=== PATIENT | female | born 1960 | race Caucasian/White ===

== ENCOUNTER 2019-08-22 00:24 | Day surgery (SDC) | payer OTHER, SELFPAY ==
[2019-08-17 15:13] VITALS: BMI 25.8
[2019-08-22 10:31] VITALS: BP 136/88; PULSE 78; RESP 20; TEMP 37.2; O2SAT 99; BMI 25.2
--- NOTE | 2019-08-22 10:41 | WPDANESEPPF ---
Anes - Initial Pre Proc Eval Procedure: Operation Date: 08/22/19 14:00 Proposed Procedures p Esophagogastroduodenoscopy & Screening Colonoscopy - Fernando Willams MD Date/Time: 08/22/19 10:41 Surgeon: Fernando Willams MD Pre Op Diagnosis: neoplasm screening, dyspepsia Patient Data Age: 58 Gender: F Height: 5 ft 8 in Weight: 75.2 kg Last Vital Signs Temp 37.2 C 08/22/19 10:31 Pulse 78 08/22/19 10:31 Resp 20 08/22/19 10:31 BP 136/88 08/22/19 10:31 Pulse Ox 99 08/22/19 10:31 Allergies Allergy/AdvReac Type Severity Reaction Status Date / Time melons AdvReac Severe THROAT Uncoded 08/22/19 10:29 SWELLING Home Medications Medication Instructions Recorded Confirmed Type armodafinil 250 mg tablet 250 mg PO QAM 05/29/19 08/17/19 History gabapentin 800 mg tablet 800 mg PO QID 05/29/19 08/17/19 History linaclotide 290 mcg capsule 290 mcg PO QAM 05/29/19 History oxycodone-acetaminophen 10 mg-325 1 tablet PO Q6H 05/29/19 08/17/19 History mg tablet levothyroxine 125 mcg tablet 125 mcg PO DAILY #90 tablet 06/28/19 08/17/19 Rx peg 3350-electrolytes 236 240 ml PO Q10M #4000 ml 08/01/19 Rx gram-22.74 gram-6.74 gram-5.86 gram solution sumatriptan succinate 100 mg PO ONCE 08/17/19 08/17/19 History topiramate 100 mg PO BID 08/17/19 08/17/19 History Patient hx anesthesia problems: none Family hx anesthesia problems: none PMFSH Past Medical History Medical History Abnormality of gait Adult hypothyroidism Balance disorder Hypersomnia MDD (major depressive disorder), recurrent episode Narcolepsy Spondylosis, cervical, with myelopathy Surgical History Surgical History H/O excision of lamina of cervical vertebra for decompression of spinal cord Family History Family History Father Hypertension Grandparent Family history of malignant melanoma Mother Family history of malignant melanoma, Onset Age: 65 Hypertension Other Cerebrovascular accident Family history of allergic disorder Family history of cardiovascular disease Family history of malignant neoplasm Social History Social History Social History: Smoking status: Never smoker Second hand tobacco smoke exposure: No Alcohol intake: never Substance use: never Substance use type: does not use Gender identity (if verbalized by the patient): Female Anes - Eval Final PreProcedure Day of Procedure 08/22/19 10:41 Patient weight: overweight Heart: regular rate and rhythm Lungs: clear to auscultation Airway: Mallampati scale Neurological: alert and oriented Last oral intake: >/= 8 hours ASA classification: III Emergent: no Anesthetic plan: proceed Anesthesia type and monitoring: general GIVS and standard monitoring Informed Consent: The patient's anesthetic plan and its attendant risks and benefits were discussed with the patient/family/POA. Questions were solicited and answers provided to the satisfaction of the patient/family/POA.
[2019-08-22] MEDS: LACTATED RINGERS 1,000 ML 150 ML IV CONT (10:46)
--- NOTE | 2019-08-22 11:04 | PM.HPGS ---
History of Present Illness History of Present Illness Consent: Risks, benefits, and alternatives have been discussed and questions answered. Patient agrees to proceed with procedure. Chief complaint: neoplasm screening, dyspepsia Narrative: Ivory Arias is a 58 year old female here for weight loss, also screening colon cancer Review of Systems Constitutional: Constitutional: Denies headache(s) and Denies weakness Eyes: Eyes: Denies blurry vision ENT: Reports Normal hearing present, Denies headache(s) and Denies neck pain Cardiovascular: Cardiovascular: Denies chest pain and Denies dyspnea Respiratory: Respiratory: Denies dyspnea Gastrointestinal: Gastrointestinal: Reports no additional gastrointestinal complaints Genitourinary: Genitourinary: Denies dysuria Musculoskeletal: Musculoskeletal: Denies neck pain Integumentary/Breasts: Skin/Breast: Denies dry skin Neurologic: Reports Normal hearing present, Denies headache(s) and Denies weakness Psychiatric: Psychiatric: Denies anxiety Endocrine: Endocrine: Denies change in body appearance Hematologic/Lymphatic: Hematologic/Lymphatic: Denies easy bleeding Allergic/Immunologic: Allergic/Immunologic: Denies urticaria PMFSH Past Medical History Medical History Abnormality of gait Adult hypothyroidism Balance disorder Hypersomnia MDD (major depressive disorder), recurrent episode Narcolepsy Spondylosis, cervical, with myelopathy Surgical History Surgical History H/O excision of lamina of cervical vertebra for decompression of spinal cord Family History Family History Father Hypertension Grandparent Family history of malignant melanoma Mother Family history of malignant melanoma, Onset Age: 65 Hypertension Other Cerebrovascular accident Family history of allergic disorder Family history of cardiovascular disease Family history of malignant neoplasm Social History Social History Social History: Smoking status: Never smoker Second hand tobacco smoke exposure: No Alcohol intake: never Substance use: never Substance use type: does not use Gender identity (if verbalized by the patient): Female Meds Home Medications and Allergies Home Medications Medication Instructions Recorded Confirmed Type armodafinil 250 mg tablet 250 mg PO QAM 05/29/19 08/17/19 History gabapentin 800 mg tablet 800 mg PO QID 05/29/19 08/17/19 History linaclotide 290 mcg capsule 290 mcg PO QAM 05/29/19 History oxycodone-acetaminophen 10 mg-325 1 tablet PO Q6H 05/29/19 08/17/19 History mg tablet levothyroxine 125 mcg tablet 125 mcg PO DAILY #90 tablet 06/28/19 08/17/19 Rx peg 3350-electrolytes 236 240 ml PO Q10M #4000 ml 08/01/19 Rx gram-22.74 gram-6.74 gram-5.86 gram solution sumatriptan succinate 100 mg PO ONCE 08/17/19 08/17/19 History topiramate 100 mg PO BID 08/17/19 08/17/19 History Allergies Allergy/AdvReac Type Severity Reaction Status Date / Time melons AdvReac Severe THROAT Uncoded 08/22/19 10:29 SWELLING Vital Signs Vital Signs - 24 hr 08/22/19 10:31 Temperature 98.9 F Pulse Rate 78 Respiratory Rate 20 Blood Pressure 136/88 Pulse Oximetry 99 Exam Const: General: comfortable and no acute distress HENMT: General nose exam: Normal nares present Eyes: General: appearance normal, both eyes and all related structures Neck: Neck: no JVD Resp: Auscultation: clear to auscultation bilaterally Cardio: Rate: regular rate Rhythm: regular rhythm GI: Inspection: non-distended GI Palp: Yes Soft to palpation Skin: General skin exam: normal color Neuro: General: gait normal Speech: normal speech Extrem: General: normal to inspection Psych: Mental Status: mental status juarez
[2019-08-22 11:36] VITALS: BP 122/83; PULSE 72; RESP 20; O2SAT 100
[2019-08-22 11:46] VITALS: BP 133/87; PULSE 70; RESP 20; O2SAT 100
[2019-08-22 11:56] VITALS: BP 144/90; PULSE 70; RESP 20; O2SAT 100
== END 2019-08-22 12:20 | disposition home or self-care (01) ==
PROVIDERS: PCP Family Medicine; Visit Provider Internal Medicine Gastroenterology
PROC: 0DJ08ZZ Inspection of Upper Intestinal Tract, Via Natural or Artificial Opening Endoscopic (ICD-10-PCS; CPT 43235; principal; 2019-08-22 14:00)
DX: Z12.11 Encounter for screening for malignant neoplasm of colon (principal); D12.3 Benign neoplasm of transverse colon; K57.30 Diverticulosis of large intestine without perforation or abscess without bleeding; K25.9 Gastric ulcer, unspecified as acute or chronic, without hemorrhage or perforation; K29.50 Unspecified chronic gastritis without bleeding; E03.9 Hypothyroidism, unspecified; F33.9 Major depressive disorder, recurrent, unspecified; M47.12 Other spondylosis with myelopathy, cervical region; G47.419 Narcolepsy without cataplexy
CPT/HCPCS: 45380; 43239; 87081; 88305; J2704; J7120

== ENCOUNTER 2019-11-05 14:05 | Outpatient (RCR) | payer OTHER, SELFPAY ==
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
== END 2020-01-11 13:20 | disposition home or self-care (01) ==
LOC: CHSPT 14:05
PROVIDERS: PCP Family Medicine
DX: Z96.651 Presence of right artificial knee joint (principal)
CPT/HCPCS: 97110; 97112; 97116; 97161; 97164; 97530

== ENCOUNTER 2020-05-05 12:56 | Outpatient (CLI) | payer OTHER, SELFPAY ==
--- NOTE | ~2020-05-05 | XR_ITS ---
EXAMINATION: XR chest 2V DATE: 05/05/2020 13:13 INDICATION: Cough. TECHNIQUE: Frontal and lateral views of the chest were obtained. COMPARISON: Chest single view 12/20/2016, chest CT 08/25/2016 FINDINGS: There is mild atelectasis at left lung base. There is a staple line at left lung apex. No p leural effusion or pneumothorax. The heart size is normal. There is an old healed fracture of left si xth rib. IMPRESSION: 1. Mild atelectasis at left lung base. Reviewed, dictated and finalized at location B. 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
== END 2020-05-05 12:57 | disposition home or self-care (01) ==
LOC: ANHIMG 13:01
PROVIDERS: PCP Family Medicine; Visit Provider Family Medicine
DX: R05 Cough (principal); J98.11 Atelectasis
CPT/HCPCS: 71046

== ENCOUNTER 2020-05-21 06:42 | Outpatient (NON) | payer OTHER, SELFPAY ==
[2020-05-23 21:25] LABS: SARS-CoV-2 RNA PCR Negative
== END 2020-05-21 06:43 ==
LOC: ANHCOVIDDT 07:03
PROVIDERS: PCP Family Medicine; Visit Provider Family Medicine
DX: R68.89 Other general symptoms and signs (principal); Z20.828 Contact with and (suspected) exposure to other viral communicable diseases
CPT/HCPCS: 87635; C9803; U0003

== ENCOUNTER 2020-06-21 10:55 | Outpatient (CLI) | payer OTHER, SELFPAY ==
--- NOTE | ~2020-06-21 | US_ITS ---
EXAMINATION:US venous doppler LE LT INDICATION:Complete DVT of the left lower extremity 6 months ago and at 3 month recheck per patient. TECHNIQUE: Multiple grayscale, color flow and Doppler images of the left lower extremity deep venous systems were obtained and reviewed. COMPARISON:No prior studies for comparison. FINDINGS: The common femoral, superficial femoral and popliteal veins demonstrate normal respiratory variation, augmentation and compressibility. There is deep venous thrombosis of the left femoral vein , likely chronic. Vein Color flow is also seen within the posterior tibial, peroneal, greater sapheno us and profunda veins. IMPRESSION: 1: Deep venous thrombosis of the left femoral vein, likely chronic given patient history. Reviewed, dictated and finalized at location A. 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
== END 2020-06-21 10:56 | disposition home or self-care (01) ==
PROVIDERS: PCP Family Medicine; Visit Provider Family Medicine
DX: I82.412 Acute embolism and thrombosis of left femoral vein (principal)
CPT/HCPCS: 93971

== ENCOUNTER 2020-09-18 10:51 | Outpatient (CLI) | payer OTHER, SELFPAY ==
--- NOTE | ~2020-09-18 | US_ITS ---
EXAMINATION:US venous doppler LE LT INDICATION:Chronic DVT of the left leg. Left thigh pain. TECHNIQUE: Multiple grayscale, color flow and Doppler images of the left lower extremity deep venous systems were obtained and reviewed. COMPARISON: Ultrasound dated 06/21/2020 FINDINGS: There is chronic deep venous thrombosis of the left femoral vein with reversal flow. There is normal flow, compressibility and augmentation in the left common femoral, popliteal, posterior tib ial, peroneal, gastrocnemius and saphenous veins. IMPRESSION: 1: Chronic deep venous thrombosis of the left femoral vein. Reviewed, dictated and finalized at location A.
[2020-09-18 12:06] LABS: Basophils Percent Auto 0.8 % (0.2-1.2); Eosinophils Absolute Auto 0.1 K/mm3 (0-0.3); Eosinophils Percent Auto 1.6 % (0-4.4); Hematocrit 40.7 % (37.0-47.0); Hemoglobin 12.6 g/dL (12.0-15.0); Immature Granulocyte Absolute 0.01 K/mm3 (0.00-0.031); Immature Granulocyte Percent A 0.2 % (0-0.5); Lymphocytes Absolute Auto 1.56 K/mm3 (0.9-3.2); Mean Corpuscular Hemoglobin 28.5 pg (26-34); Mean Corpuscular Volume 92.1 fl (80-100); Mean Platelet Volume 10.3 fl (7.4-10.4); Monocytes Absolute Auto 0.3 K/mm3 (0.1-0.6); Monocytes Percent Auto 6.8 % (2.6-8.5); Neutrophils Absolute Auto 2.9 K/mm3 (1.3-6.7); Neutrophils Percent Auto 58.6 % (45.5-73.1); Platelet Count Result 260 k/mm3 (150-375); Red Blood Count 4.42 M/mm3 (4.2-5.4); Red Cell Distribution Width 13.3 % (11.5-14.5); White Blood Count 4.9 K/mm3 (4.5-10.0)
[2020-09-18 12:18] LABS: Alanine Aminotransferase 18 U/L (4-35); Albumin Level 3.8 g/dL (3.5-5.1); Alkaline Phosphatase 52 U/L (38-126); Anion Gap 6 mmol/L (8-16); Aspartate Amino Transferase 22 U/L (14-36); Bilirubin,Total 0.3 mg/dL (0.2-1.3); Blood Urea Nitrogen 22 mg/dL (7-17); Calcium 8.9 mg/dL (8.4-10.2); Carbon Dioxide 30 mmol/L (22-30); Chloride 105 mmol/L (98-107); Cholesterol 230 mg/dL (0-200); Estimated Glomerular Filt Rate > 60; Glucose 90 mg/dL (65-105); HDL Direct 57 mg/dL; Potassium 3.9 mmol/L (3.4-5.0); Sodium 141 mmol/L (137-145); Triglycerides 108 mg/dL (<150)
[2020-09-18 12:29] LABS: LDL Cholesterol Direct 130 mg/dL
[2020-09-18 12:34] LABS: Erythrocyte Sedimentation Rate 14 mm/hr (0-20)
[2020-09-18 12:46] LABS: Total Triiodothyronine (T3) 0.85 NG/ML (0.97-1.69)
[2020-09-18 13:03] LABS: Free T4 Free Thyroxine 0.95 ng/mL (0.78-2.19)
[2020-09-23 00:53] LABS: Vitamin D 1,25 (OH)2 Total 40 pg/mL (18-72); Vitamin D2 1,25 (OH)2 <8 pg/mL; Vitamin D3 1,25 (OH)2 40 pg/mL
== END 2020-09-18 10:52 | disposition home or self-care (01) ==
PROVIDERS: PCP Family Medicine; Visit Provider Physician Assistant
DX: Z13.220 Encounter for screening for lipoid disorders (principal); I82.512 Chronic embolism and thrombosis of left femoral vein; M79.89 Other specified soft tissue disorders; E03.9 Hypothyroidism, unspecified; F33.9 Major depressive disorder, recurrent, unspecified; R26.89 Other abnormalities of gait and mobility; E55.9 Vitamin D deficiency, unspecified; L40.9 Psoriasis, unspecified; I10 Essential (primary) hypertension
CPT/HCPCS: 36415; 80053; 80061; 82652; 84439; 84443; 84480; 85025; 85652; 93971

== ENCOUNTER 2021-04-09 16:09 | Outpatient (CLI) | payer OTHER, SELFPAY ==
--- NOTE | ~2021-04-09 | XR_ITS ---
EXAMINATION: XR abdomen/kub 1V DATE: 04/09/2021 16:29 INDICATION: Constipation, unspecified. TECHNIQUE: A supine view of the abdomen on 2 radiographs was obtained. COMPARISON: Abdomen radiographs 04/10/2016 FINDINGS: There are no dilated loops of bowel. There is a large volume of stool in the colon. There a re phleboliths in the pelvis. IMPRESSION: 1. Nonobstructive bowel gas pattern. Reviewed, dictated and finalized at location A.
== END 2021-04-09 16:10 | disposition home or self-care (01) ==
LOC: ANHIMG 16:14
PROVIDERS: PCP Family Medicine; Visit Provider Physician Assistant
DX: K59.00 Constipation, unspecified (principal)
CPT/HCPCS: 74018

== ENCOUNTER 2021-05-11 10:40 | Emergency (ER) | payer OTHER, SELFPAY ==
[2021-05-11] VITALS (24 sets, daily range): BP systolic 134–169; BP diastolic 99–117; PULSE 92–110; RESP 13–21; TEMP 36.6; O2SAT 96–100
--- NOTE | ~2021-05-11 | XR_ITS ---
EXAMINATION: XR chest 2V DATE: 05/11/2021 11:05 INDICATION: Shortness of breath. Weakness. TECHNIQUE: Frontal and lateral views of the chest were obtained. COMPARISON: Chest 2 views 05/05/2020, chest CT 08/25/2016 FINDINGS: There is a staple line in left lung apex. There is mild atelectasis versus scarring at left lung base. No pleural effusion or pneumothorax. The heart size is normal. There is an old healed fra cture of left sixth rib. There are surgical changes in cervical spine. IMPRESSION: 1. Stable mild atelectasis versus scarring at left lung base. Reviewed, dictated and finalized at location A. 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
--- NOTE | 2021-05-11 10:49 | ECG_ITS ---
Measurements Intervals [place] Rate: 94 P: 46 RI: 153 QRS: -36 QRSD: 83 T: 14 QT: 365 QTc: 459 Interpretive Statements SINUS RHYTHM LEFT AXIS DEVIATION VOLTAGE CRITERIA FOR LVH BORDERLINE ECG Electronically Signed On 05-11-2021 14:44:36 RODDING ANODE WORKER by Kobi Cope D.O.
[2021-05-11 11:59] LABS: Basophils Percent Auto 0.3 % (0.2-1.2); Eosinophils Absolute Auto 0.1 K/mm3 (0-0.3); Eosinophils Percent Auto 0.8 % (0-4.4); Hematocrit 40.5 % (37.0-47.0); Hemoglobin 12.9 g/dL (12.0-15.0); Immature Granulocyte Absolute 0.02 K/mm3 (0.00-0.031); Immature Granulocyte Percent A 0.3 % (0-0.5); Lymphocytes Absolute Auto 0.92 K/mm3 (0.9-3.2); Mean Corpuscular HGB Conc 31.9 g/dl (32-36); Mean Corpuscular Hemoglobin 27.3 pg (26-34); Mean Corpuscular Volume 85.6 fl (80-100); Mean Platelet Volume 10.3 fl (7.4-10.4); Monocytes Absolute Auto 0.4 K/mm3 (0.1-0.6); Monocytes Percent Auto 6.1 % (2.6-8.5); Neutrophils Absolute Auto 5.2 K/mm3 (1.3-6.7); Neutrophils Percent Auto 78.5 % (45.5-73.1); Platelet Count Result 298 k/mm3 (150-375); Red Blood Count 4.73 M/mm3 (4.2-5.4); Red Cell Distribution Width 14.4 % (11.5-14.5); White Blood Count 6.6 K/mm3 (4.5-10.0)
[2021-05-11 12:17] LABS: Anion Gap 12 mmol/L (8-16); Blood Urea Nitrogen 18 mg/dL (7-17); Calcium 9.3 mg/dL (8.4-10.2); Carbon Dioxide 22 mmol/L (22-30); Chloride 104 mmol/L (98-107); Estimated CRCL calculation 87 ml/min; Estimated Glomerular Filt Rate > 60; Glucose 82 mg/dL (65-110); Potassium 3.6 mmol/L (3.4-5.0); Sodium 138 mmol/L (137-145)
[2021-05-11 13:40] LABS: NT Pro B Type Natriuretic Pept 176 pg/mL (5-100)
[2021-05-11 13:43] LABS: Troponin I 0.016 ng/mL (0.000-0.034)
[2021-05-11 14:10] LABS: D Dimer 0.37 ug/mL (<0.48)
--- NOTE | 2021-05-11 14:32 | ED.SOB ---
HPI - SOB/Dyspnea General Chief Complaint: Shortness of Breath/Dyspnea Stated Complaint: SOB Time Seen by Provider: 05/11/21 12:25 Source: patient Mode of arrival: ambulatory Limitations: no limitations History of Present Illness HPI Narrative: 60-year-old female Here because of a number of of vague general complaints following Covid vaccination 2 weeks ago She complains of aches, dry cough, poor appetite, fluctuating general weakness, exertional dyspnea It seems that what precipitated her visit to the ED though was that her was brought in for similar but more severe symptoms She does not have a fever, no vomiting, no diarrhea, no hematuria or dysuria Related Data Home Medications Medication Instructions Recorded Confirmed gabapentin 800 mg tablet 800 mg PO QID 05/29/19 04/06/21 oxycodone-acetaminophen 10 mg-325 1 tablet PO Q6H 05/29/19 04/06/21 mg tablet erenumab-aooe 70 mg/mL 70 mg SUBCUT MONTHLY 09/18/20 04/06/21 subcutaneous auto-injector ferrous sulfate 325 mg (65 mg 325 mg PO DAILY 04/06/21 04/06/21 iron) tablet multivitamin 1 tablet PO DAILY 04/06/21 04/06/21 Allergies Allergy/AdvReac Type Severity Reaction Status Date / Time melons AdvReac Severe THROAT Uncoded 04/06/21 14:42 SWELLING Review of Systems Review of Systems: All systems reviewed & are unremarkable except as noted in HPI and below Constitutional: Constitutional: Reports no additional constitutional complaints, Denies chills, Reports fatigue, Denies fever(s), Denies headache(s) and Reports weakness Eyes: Eyes: Reports no additional eye complaints and Denies change in vision ENT: Denies headache(s) and Denies sore throat Cardiovascular: Cardiovascular: Denies chest pain and Denies dyspnea Respiratory: Respiratory: Reports cough and Reports dyspnea Gastrointestinal: Gastrointestinal: Denies abdominal pain, Denies diarrhea, Reports nausea and Denies vomiting Genitourinary: Genitourinary: Denies urinary frequency, Denies nocturia and Denies dysuria Musculoskeletal: Musculoskeletal: Denies deformity, Denies arthralgias, Denies joint swelling and Denies numbness Integumentary/Breasts: Skin/Breast: Denies rash and Denies wounds Neurologic: Reports dizziness, Reports headache(s), Denies focal weakness, Denies numbness and Reports weakness Psychiatric: Psychiatric: Reports no additional psychiatric complaints Endocrine: Endocrine: Reports no additional endocrine complaints Hematologic/Lymphatic: Hematologic/Lymphatic: Reports no additional hematologic/lymphatic complaints Allergic/Immunologic: Allergic/Immunologic: Reports no additional allergic/immunologic complaints [facility] Past Medical History Medical History (Updated 05/11/21 @ 14:43 by Spike De La Cruz MD) Abnormality of gait Adult hypothyroidism Balance disorder Dyspepsia due to dysmotility HTN (hypertension) Hypersomnia MDD (major depressive disorder), recurrent episode Muscle weakness (generalized) Narcolepsy Normal echocardiogram Spondylosis, cervical, with myelopathy Weight loss Surgical History Surgical History H/O arthroscopy of shoulder R shoulder 06/2019 H/O endoscopy 08/22/19 H/O excision of lamina of cervical vertebra for decompression of spinal cord History of total knee arthroplasty R august 2019 Family History Family History Father Hypertension Grandparent Family history of malignant melanoma Mother Family history of malignant melanoma, Onset Age: 65 Hypertension Other Cerebrovascular accident Family history of allergic disorder Family history of cardiovascular disease Family history of malignant neoplasm Social History Social History Social History: Smoking status: Never smoker Second hand tobacco smoke exposure: No Alcohol intake: never Substan
--- NOTE | 2021-05-11 15:40 | PC.NURSE ---
Pt states I feel the doctor blew me off about my condition and I informed him about my blood pressure,not eating for two weeks and SOB I informed pt that I was sorry that she feels that way and I want to make sure she feels good to go home, informed rfid strategist Soumya, Soumya spoke with patient and gave her more education on how to keep her from dry heaving. This RN informed Dr. De La Cruz regarding pt concerns, he agreed she is okay to be discharged but has not spoken back with the patient at this time.
== END 2021-05-11 15:41 | disposition home or self-care (01) ==
PROVIDERS: Emergency Medicine; Emergency Provider Emergency Medicine; PCP Family Medicine
DX: R53.1 Weakness (principal); R53.83 Other fatigue; T50.B95A Adverse effect of other viral vaccines, initial encounter; E03.9 Hypothyroidism, unspecified; I10 Essential (primary) hypertension; Z96.651 Presence of right artificial knee joint; R94.31 Abnormal electrocardiogram [ECG] [EKG]
CPT/HCPCS: 36415; 71046; 80048; 83880; 84484; 85025; 85380; 93005; 99284

== ENCOUNTER 2021-06-04 16:58 | Outpatient (CLI) | payer OTHER, SELFPAY ==
--- NOTE | ~2021-06-04 | DEXA_ITS ---
Bone Density Report Name: WINDY SIMON Age: 60 Sex: Female Ethnicity: White Date of : 1960 Indication: postmenopausal; hysterectomy; Referring Provider: BRIANA, BASSAM Perdomo Study: Bone densitometry was performed. Exam Date: June 04, 2021 Accession number: [id number] Bone Density: Region BMD T-score Z-score Classification AP Spine (L1-L4) 1.019 -0.3 1.3 Normal Femoral Neck (Left) 0.673 -1.6 -0.2 Osteopenia Total Hip (Left) 0.745 -1.6 -0.6 Osteopenia Total Hip Bilateral Avg 0.767 -1.5 -0.4 Osteopenia Femoral Neck (Right) 0.711 -1.2 0.1 Osteopenia Total Hip (Right) 0.788 -1.3 -0.2 Osteopenia World Health Organization criteria for BMD impression classify patients as: Normal (T-score at or above -1.0), Osteopenia (T-score between -1.0 and -2.5), or Osteoporosis (T-score at or below -2.5). 10-year Fracture Risk(1): Major Osteoporotic Fracture 8.1% Hip Fracture 0.7% Reported Risk Factors: [place] (), Neck BMD=0.673, BMI=31.0 (1) FRAX(R) Version 3.08. Fracture probability calculated for an untreated patient. Fracture probability may be lower if the patient has received treatment. Clinical Information Provided by Patient: Has used the following medications: Vitamin D, Calcium Has the following medical conditions: Hysterectomy Patient maximum height was 68 Menopause Age: 39 Does not regularly consume dairy products Onset of menses at age 10 Number of children 3 Impression: The patient has low bone mass, based on the Left Total Hip T-score. The patient has an estimated ten-year risk of hip fracture of 0.7% and an estimated ten-year risk of major fracture of 8.1%, based on the WHO FRAX algorithm. Discussion: BONE DENSITY IS LOW AT ONE OR MORE SKELETAL SITES. This patient's lowest T-score is low at one or more skeletal sites. It meets the World Health Organization's (WHO) criteria for ?low bone mass? (T-score between -1.0 and -2.5). The patient's 10-year risk of fracture as calculated by FRAX is less than the threshold where pharmacological therapy is recommended by the National Osteoporosis Foundation (NOF). However, all treatment decisions require clinical judgment and consideration of individual patient factors, including patient preferences, comorbidities, previous drug use, risk factors not captured in the FRAX model (e.g., frailty, falls, vitamin D deficiency, increased bone turnover, interval significant decline in bone density) and possible under or overestimation of fracture risk by FRAX. The patient should follow a healthful lifestyle (good nutrition with adequate calcium and vitamin D, and appropriate weight-bearing exercise). Follow-Up: Consider repeating this study in 2 to 3 years to reassess this patient's status, or sooner if there is some new clinical indication. Repor
== END 2021-06-04 16:59 | disposition home or self-care (01) ==
LOC: ANHIMG 16:59
PROVIDERS: PCP Family Medicine; Visit Provider Physician Assistant
DX: Z78.0 Asymptomatic menopausal state (principal); M85.89 Other specified disorders of bone density and structure, multiple sites
CPT/HCPCS: 77080

== ENCOUNTER 2021-07-01 08:41 | Outpatient (CLI) | payer OTHER, SELFPAY ==
--- NOTE | ~2021-07-01 | XR_ITS ---
XR knee LT 3V DATE: 07/01/2021 09:06 INDICATION: Left knee pain TECHNIQUE: AP, lateral, sunrise views COMPARISON: 02/2014 bilateral knees FINDINGS: Status post medial compartment right knee arthroplasty. There is prominent periarticular spurring at the patellofemoral compartment consistent with prominent osteoarthritis. Lateral compartment joint space is relatively preserved, with lateral periarticular spurring. There is osteopenia. No fracture or dislocation, periosteal reaction or bone destruction. There is mild suprapatellar knee joint effusion. IMPRESSION: Medial compartment right knee arthroplasty Mild suprapatellar knee joint effusion Osteophytic change at the lateral and particularly patellofemoral compartments Osteopenia Reviewed, dictated and finalized at location A. 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
== END 2021-07-01 08:42 | disposition home or self-care (01) ==
LOC: CHSIMG 08:43
PROVIDERS: PCP Family Medicine; Visit Provider Anesthesiology
DX: M25.562 Pain in left knee (principal)
CPT/HCPCS: 73562

== ENCOUNTER 2021-11-10 10:36 | Outpatient (CLI) | payer OTHER, SELFPAY ==
--- NOTE | 2021-11-10 | ECG_ITS ---
Measurements Intervals [place] Rate: 71 P: 40 VT: 158 QRS: -24 QRSD: 98 T: 12 QT: 392 QTc: 429 Interpretive Statements SINUS RHYTHM BORDERLINE R WAVE PROGRESSION, ANTERIOR LEADS BORDERLINE ECG Electronically Signed On 11-10-2021 12:13:17 CDT by Kobi Cope D.O.
--- NOTE | ~2021-11-10 | XR_ITS ---
XR chest 2V 11/10/2021 12:31 Indication: Preprocedure testing. Hypertension. Procedure: 2 view chest Comparison: 05/11/2021 Findings: There are surgical changes of the left thorax which are stable. There is a healed left sixt h rib fracture. No focal air space disease, pulmonary edema, pleural effusion or suspected pneumothor ax. Heart size normal. Impression: 1: No acute cardiopulmonary disease. Reviewed, dictated and finalized at location A. Impression: 1: No acute cardiopulmonary disease.
[2021-11-10 11:11] LABS: Basophils Percent Auto 0.1 % (0.2-1.2); Eosinophils Percent Auto 0.1 % (0-4.4); Immature Granulocyte Absolute 0.03 K/mm3 (0.00-0.031); Immature Granulocyte Percent A 0.3 % (0-0.5); Lymphocytes Absolute Auto 1.31 K/mm3 (0.9-3.2); Lymphocytes Percent Auto 15.1 % (18.3-44.2); Mean Corpuscular HGB Conc 31.6 g/dl (32-36); Mean Corpuscular Hemoglobin 28.3 pg (26-34); Mean Corpuscular Volume 89.6 fl (80-100); Mean Platelet Volume 10.3 fl (7.4-10.4); Monocytes Absolute Auto 0.6 K/mm3 (0.1-0.6); Monocytes Percent Auto 6.8 % (2.6-8.5); Neutrophils Absolute Auto 6.7 K/mm3 (1.3-6.7); Neutrophils Percent Auto 77.6 % (45.5-73.1); Platelet Count Result 303 k/mm3 (150-375); Red Blood Count 4.24 M/mm3 (4.2-5.4); Red Cell Distribution Width 13.4 % (11.5-14.5); White Blood Count 8.7 K/mm3 (4.5-10.0)
[2021-11-10 11:21] LABS: INR 1.1; Prothrombin Time 13.4 Seconds (11.1-14.7)
[2021-11-10 11:23] LABS: Partial Thromboplastin Time 29.7 SECONDS (22.3-36.8)
[2021-11-10 11:25] LABS: Anion Gap 8 mmol/L (8-16); Blood Urea Nitrogen 20 mg/dL (7-17); CRP < 0.5 mg/dL (<1.0); Calcium 8.7 mg/dL (8.4-10.2); Carbon Dioxide 24 mmol/L (22-30); Chloride 105 mmol/L (98-107); Estimated Glomerular Filt Rate > 60; Glucose 92 mg/dL (65-110); Sodium 137 mmol/L (137-145)
[2021-11-10 12:22] LABS: Erythrocyte Sedimentation Rate 12 mm/hr (0-20)
[2021-11-10 12:48] LABS: Appearance Urine Clear (Clear); Bilirubin Urine Negative (Negative); Blood Urine Negative (Negative); Color Urine Yellow (Yellow); Glucose Urine UA Negative (Negative); Ketones Urine Negative (Negative); Leukocyte Esterase Ur Trace LEU/UL (NEGATIVE); Nitrate Urine Negative (Negative); Protein Urine Negative (Negative); Urobilinogen Urine 0.2 mg/dL (<2.0)
[2021-11-10 12:57] LABS: Bacteria Urine Trace /hpf; Mucus Urine Rare /lpf; RBC Urine 0-2 /hpf (0-2); Squamous Epithelial Cell Urine Occasional /hpf (Few)
[2021-11-10 13:02] LABS: Add Urine Microscopic? YES
== END 2021-11-10 10:37 | disposition home or self-care (01) ==
LOC: ANHLAB 10:39
PROVIDERS: PCP Family Medicine; Visit Provider Anesthesiology
DX: Z01.818 Encounter for other preprocedural examination (principal); I25.10 Atherosclerotic heart disease of native coronary artery without angina pectoris; A79.1 Rickettsialpox due to Rickettsia akari; R07.89 Other chest pain; M54.16 Radiculopathy, lumbar region
CPT/HCPCS: 36415; 71046; 80048; 81001; 85025; 85610; 85652; 85730; 86140; 93005

== ENCOUNTER → 2022-02-22 13:38 | Outpatient (CLI) | payer OTHER, SELFPAY ==
--- NOTE | ~2022-02-22 | US_ITS ---
EXAMINATION: US venous doppler [facility] DATE: 02/22/2022 14:14 INDICATION: Acute embolism and thrombosis of unspecified deep vein. TECHNIQUE: Grayscale ultrasound images without and with compression and Doppler ultrasound images of the left lower extremity veins were obtained. COMPARISON: Ultrasound 09/18/2020 FINDINGS: The visualized portions of left profunda (deep) femoral vein, popliteal vein, peroneal veins, posteri or tibial veins, and greater saphenous vein outflow are patent. There is an echogenic web in left com mon femoral vein. There is nonocclusive thrombus in left femoral vein. IMPRESSION: 1. Chronic deep vein thrombosis involving left common femoral and femoral veins. Reviewed, dictated and finalized at location A. IMPRESSION: 1. Chronic deep vein thrombosis involving left common femoral and femoral vein s.
== END ==
PROVIDERS: PCP Family Medicine; Visit Provider Family Medicine
DX: I82.409 Acute embolism and thrombosis of unspecified deep veins of unspecified lower extremity (principal); I82.512 Chronic embolism and thrombosis of left femoral vein
CPT/HCPCS: 93971

== ENCOUNTER 2023-12-01 19:00 | Emergency (ER) | payer BC, SELFPAY ==
--- NOTE | 2023-12-01 19:02 | ED.EAR ---
HPI - Ear Problem General Chief complaint: Ear Stated complaint: R EAR BLEEDING Time Seen by Provider: 12/01/23 19:12 Source: patient, RN notes reviewed and old records reviewed Mode of arrival: ambulatory Limitations: no limitations History of Present Illness HPI Narrative: 63-year-old female presents to the [facility] with complaints of right ear bleeding. States that it started bleeding earlier today, once it stops tried cleaning the blood out of it and the bleeding started again. Denies putting anything in it prior to the 1st time of it bleeding. Patient reports that she was washing her hair earlier today when she noticed that there was a pulling in her ear, used a paper towel and noticed that was blood on it. Denies any pain. Patient currently on Eliquis Treatment prior to arrival: other (Attempted to clean out ears) Related Data Home Medications Medication Instructions Recorded Confirmed gabapentin 800 mg tablet 800 mg PO QID 05/29/19 12/01/23 multivitamin 1 tablet PO DAILY 04/06/21 12/01/23 Allergies Allergy/AdvReac Type Severity Reaction Status Date / Time melons AdvReac Severe THROAT Uncoded 12/01/23 19:54 SWELLING Review of Systems Review of Systems: All systems reviewed & are unremarkable except as noted in HPI and below Constitutional: Constitutional: Reports no additional constitutional complaints Eyes: Eyes: Reports no additional eye complaints ENT: Reports as per HPI and Reports ear discharge Cardiovascular: Cardiovascular: Reports no additional cardiovascular complaints, Denies chest pain and Denies dyspnea Respiratory: Respiratory: Reports no additional respiratory complaints, Denies chest congestion, Denies cough and Denies dyspnea Gastrointestinal: Gastrointestinal: Reports no additional gastrointestinal complaints, Denies abdominal pain, Denies nausea and Denies vomiting Musculoskeletal: Musculoskeletal: Reports no additional musculoskeletal complaints Integumentary/Breasts: Skin/Breast: Reports system reviewed and no additional complaints, except as docu Neurologic: Reports system reviewed and no additional complaints, except as documented Psychiatric: Psychiatric: Reports no additional psychiatric complaints Allergic/Immunologic: Allergic/Immunologic: Reports no additional allergic/immunologic complaints PMFSH Past Medical History Medical History Abnormality of gait Acute deep vein thrombosis (DVT) of calf muscle vein of left lower extremity Adult hypothyroidism Balance disorder Cellulitis of thumb, right Chronic deep vein thrombosis (DVT) of left lower extremity Close exposure to 2019 novel coronavirus Cough DVT (deep venous thrombosis) Dyspepsia due to dysmotility Fatigue after COVID-19 vaccination HTN (hypertension) Hypersomnia Left leg pain MDD (major depressive disorder), recurrent episode Muscle weakness (generalized) Narcolepsy Normal echocardiogram Palpitations Respiratory illness with fever Spondylosis, cervical, with myelopathy Vaccine counseling Weight loss Surgical History Surgical History H/O arthroscopy of shoulder R shoulder 06/2019 H/O endoscopy 08/22/19 H/O excision of lamina of cervical vertebra for decompression of spinal cord History of total knee arthroplasty R august 2019 Family History Family History Father Hypertension Grandparent Family history of malignant melanoma Mother Family history of malignant melanoma, Onset Age: 65 Hypertension Other Cerebrovascular accident Family history of allergic disorder Family history of cardiovascular disease Family history of malignant neoplasm Social History Social History Social History: Smoking status: Never smoker Second hand tobacco smoke exposure: No A
[2023-12-01 19:13] VITALS: BP 161/114; PULSE 74; RESP 16; TEMP 37.2; O2SAT 100
== END 2023-12-01 19:28 | disposition home or self-care (01) ==
PROVIDERS: Emergency Provider Nurse Practitioner
DX: S00.411A Abrasion of right ear, initial encounter (principal); X58.XXXA Exposure to other specified factors, initial encounter; E03.9 Hypothyroidism, unspecified; I10 Essential (primary) hypertension; Z86.718 Personal history of other venous thrombosis and embolism; Z79.01 Long term (current) use of anticoagulants
CPT/HCPCS: 99212; G0463

== ENCOUNTER 2024-01-13 08:41 | Outpatient (CLI) | payer BC, SELFPAY ==
[2024-01-13 09:14] LABS: Basophils Absolute Auto 0.1 K/mm3 (0.0-0.1); Eosinophils Absolute Auto 0.1 K/mm3 (0-0.3); Eosinophils Percent Auto 1.6 % (0-4.4); Hematocrit 45.5 % (37.0-47.0); Hemoglobin 14.1 g/dL (12.0-15.0); Immature Granulocyte Absolute 0.01 K/mm3 (0.00-0.031); Immature Granulocyte Percent A 0.1 % (0-0.5); Lymphocytes Absolute Auto 1.49 K/mm3 (0.9-3.2); Lymphocytes Percent Auto 21.6 % (18.3-44.2); Mean Corpuscular Hemoglobin 26.2 pg (26-34); Mean Corpuscular Volume 84.6 fl (80-100); Mean Platelet Volume 11.2 fl (7.4-10.4); Monocytes Absolute Auto 0.6 K/mm3 (0.1-0.6); Monocytes Percent Auto 8.1 % (2.6-8.5); Neutrophils Absolute Auto 4.7 K/mm3 (1.3-6.7); Neutrophils Percent Auto 67.6 % (45.5-73.1); Platelet Count Result 284 k/mm3 (150-375); Red Blood Count 5.38 M/mm3 (4.2-5.4); Red Cell Distribution Width 14.6 % (11.5-14.5); White Blood Count 6.9 K/mm3 (4.5-10.0)
[2024-01-13 09:21] LABS: Alanine Aminotransferase 18 U/L (6-35); Albumin Level 4.4 g/dL (3.5-5.1); Alkaline Phosphatase 65 U/L (38-126); Anion Gap 10 mmol/L (4-12); Aspartate Amino Transferase 22 U/L (14-36); Bilirubin,Total 0.9 mg/dL (0.2-1.3); Blood Urea Nitrogen 24 mg/dL (7-17); Carbon Dioxide 27 mmol/L (22-30); Chloride 102 mmol/L (98-107); Cholesterol 265 mg/dL (0-200); Estimated Glomerular Filt Rate > 60; Glucose 93 mg/dL (65-110); HDL Direct 51 mg/dL; Potassium 3.9 mmol/L (3.4-5.0); Sodium 139 mmol/L (137-145); Triglycerides 97 mg/dL (<150)
[2024-01-13 09:32] LABS: LDL Cholesterol Direct 177 mg/dL
[2024-01-13 09:58] LABS: Free T4 Free Thyroxine 0.78 ng/mL (0.78-2.19)
== END 2024-01-13 08:42 | disposition home or self-care (01) ==
LOC: ANHLAB 08:43
PROVIDERS: PCP Family Medicine; Visit Provider Physician Assistant
DX: E03.9 Hypothyroidism, unspecified (principal); E07.9 Disorder of thyroid, unspecified; E78.5 Hyperlipidemia, unspecified; I10 Essential (primary) hypertension; F33.9 Major depressive disorder, recurrent, unspecified
CPT/HCPCS: 36415; 80053; 80061; 84439; 84443; 85025

== ENCOUNTER 2024-10-20 17:59 | Emergency (ER) | payer BC, SELFPAY ==
--- NOTE | ~2024-10-20 | XR_ITS ---
XR chest 2V Ordering provider: Diogo Perales MD History: 63 years Female with . CHEST PAIN . Comparison: November 10, 2021 FINDINGS: MEDIASTINUM: The cardiac silhouette is not enlarged. LUNGS: No infiltrates, effusions or pneumothorax. OTHER: No free air under the diaphragm. Degenerative changes of the spine.. Healed fracture in the le ft fifth rib. IMPRESSION: No acute cardiopulmonary pathology. Reviewed, dictated and finalized at location A.
--- NOTE | ~2024-10-20 | CT_ITS ---
EXAMINATION: CTA chest PE protocol DATE: 10/20/2024 23:16 INDICATION: Chest pain. Shortness of breath. Known DVT. TECHNIQUE: Computed tomography (CT) pulmonary angiogram of the chest was performed with 100 mL Omnipa que-350 intravenous contrast. Additional 3D reconstructions utilizing coronal maximum intensity proje ction (MIP) were performed. Automated exposure control and iterative reconstruction technique were em ployed. The dose-length product was 458.08 mGy-cm. COMPARISON: None FINDINGS: No pulmonary or some. Suture line and associated mild linear scarring at the left apex. Additional li near discoid atelectasis/scarring in the lingula. No pneumonia, pulmonary edema or pleural effusion. Heart size is normal. Atherosclerotic coronary artery calcification. No pericardial effusion. Thoraci c aorta is normal in caliber with no dissection. No pathologically enlarged thoracic lymphadenopathy. Small sliding-type hiatal hernia. Multiple gallstones filling the otherwise normal gallbladder. Mild thoracic spondylosis with bridging osteophytes at multiple levels consistent with diffuse idiopathic skeletal hyperostosis (DISH). IMPRESSION: 1. No pulmonary embolism or other acute cardiopulmonary disease. 2. Small sliding-type hiatal hernia. 2. Cholelithiasis. Reviewed, dictated and finalized at location A.
--- OUTSIDE RECORDS SUMMARY | 2024-10-20 18:02 | XMS_ITS | Encounter Summary ---
Author Organization [facility] Address [address] [place] [address] Care Team Providers Care Distribution Systems Superintendent Name Role Phone Marissa Farr MD Unavailable [phone] Yesenia Gardner NP Primary Care Provider [phone] Reason for Referral * Consultation (Routine) - Closed Specialty Diagnoses / Procedures Referred By Oscar schrader Referred To Contact Orthopedic Surgery Diagnoses Nontraumatic incomplete tear of left rotator cuff Nontraumatic incomplete tear of right rotator cuff Marisabel Syed NP [address] [place] [phone] Phone: tel: fax: [facility] Orthopedics and Sports Medicine [address] [place] [phone] Phone: tel: fax: Referral ID Status Reason Start Date Expiration Date V isits Requested Visits Authorized [id number] Closed Specialty Services Required 10/04/2024 11/03/2025 1 1 Question Answer Please select the performing region: [facility] [[id number]] Please select the performing department: [facility] [[id number]] # of visits: 1 Comments Bilateral shoulder tendon tears on recent MRI Encounter Details Date Type Department Care Team (Late st Contact Info) Description 10/04/2024 Results [facility] [address] [place] [address] Marisabel Syed NP [address] [place] [address] Nontraumatic incomplete tear of left rotator cuff (Primary Dx); Nontraumatic incomplete tear of right rotator cuff Social History Tobacco Use Types Packs/Day Years Used Date Smoking Tobacco: Never Smokeless Tobacco: Never [facility] [employer] Answer Date Recorded In the past 12 months has e [employer], gas, oil, or water [employer] threatened to shut off services in your home? No 08/08/2024 Humiliation, Afraid, Rape, and Kick questionnair e Answer Date Recorded Within the last year, have y ou been afraid of your partner or ex-partner? No 08/08/2024 Within the last year, have y ou been humiliated or emotionally abused in other ways by your partner or ex-partner? No Within the last year, have y ou been kicked, hit, slapped, or otherwise physically hurt by your partner or ex-partner? No 08/08/2024 Within the last year, have y ou been raped or forced to have any kind of sexual activity by your partner or ex-partner? No 08/08/2024 Social Connection and Isolat ion Panel [NHANES] Answer Date Recorded In a typical week, how many times do you talk on the phone with family, friends, or neighbors? More than three times a week 08/08/2024 How often do you get togethe r with friends or relatives? Once a week 08/08/2024 How often do you attend chur ch or restorationist services? More than 4 times per year 08/08/2024 Do you belong to any clubs o r organizations such as adventism groups, unions, fraternal or athletic groups, or school groups? Yes 08/08/2024 How often do you attend meet ings of the clubs or organizations you belong to? More than 4 times per year 08/08/2024 Are you , , di vorced, , never , or living with a partner? 08/08/2024 AUDIT-C Answer Date Recorded Q1: How often do you have a drink containing alcohol? Never 08/08/2024 Q2: How many drinks containi ng alcohol do you have on a typical day when you are drinking? Patient does not drink Q3: How often do you have si x or more drinks on one occasion? Never 08/08/2024 Overall Financial Resource Strain (CARDIA) Answe r Date Recorded How hard is it for you to pa y for the very basics like food, housing, medical care, and heating? Not hard at all 08/08/2024 PHQ-2 Answer Date Recorded PHQ-2 Total Score (If total score is 3 or more points, staff should administer the PHQ-9) 1 09/20/2024 [facility] - Occupational Stress Questionnaire Answer Date Recorded Do you feel stress - tense, restless, nervous, or anxious, or unable to sleep at night because your mind is troubled all the time - these days? To some extent 08/08/2024 Exercise Vital Sign Answer Date Recorde d On average, how many days pe r week do you engage in moderate to strenuous exercise (like a brisk walk)? 7 days 08/08/2024 On average, how many minutes do you engage in exercise at this level? 30 min 08/08/2024 Hunger Vital Sign Answer Date Recorded Within the past 12 months, y ou worried that your food would run out before you got the money to buy more. Never true 08/08/19 25 Within the past 12 months, t he food you bought just didn't last and you didn't have money to get more. Never true 08/08/2024 PRAPARE - Transportation Answer Date Re corded In the past 12 months, has l ack of transportation kept you from medical appointments or from getting medications? No 07/28 In the past 12 months, has l ack of transportation kept you from meetings, work, or from getting things needed for daily living? No 08/08/2024 PHQ-9 Answer Date Recorded PHQ-9 Total Score 19 08/08/2024 Housing Stability Vital Sign Answer Wenceslao e Recorded In the last 12 months, was t here a time when you were not able to pay the mortgage or rent on time? No 08/08/2024 In the past 12 months, how m any times have you moved where you were living? 0 08/08/2024 At any time in the past 12 m [facility], were you homeless or living in a [place] [facility] [place] facility (including now)? 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 documented as of this encounter Plan of Treatment Upcoming Encounters Date Type Department Care Team (Late st Contact Info) Description 11/14/2024 10:00 AM CDT Hospital Encounter [address] [address] Spike Newberry, [address] [facility] [address] [place] [address] 11/14/2024 10:00 AM CDT - 11/14/2024 10:30 AM CDT Surgery [address] [address] Spike Newberry, DO 4 [facility] [address] [place] [address] COLONOSCOPY Scheduled Procedures Name Priority Associated Diagnoses Date/Ti me COLONOSCOPY History of colonic polyps Encounter for screening colonoscopy 11/14/2024 10:00 AM CDT Scheduled Referrals Name Type Priority Associated Diagnoses Order Schedule Ambulatory referral to Orthopedic Surgery Outpatient Referral Routine Nontraumatic incomplete tear of left rotator cuff Nontraumatic incomplete tear of right rotator cuff Expected: 10/18/2024 (Approximate), Expires: 10/04/2025 documented as of this encounter Visit Diagnoses Diagnosis History of colonic polyps Personal history of colonic polyps Encounter for screening colonoscopy Nontraumatic incomplete tear of left rotator cuff- Primary Nontraumatic incomplete tear of right rotator cuff History of colonic polyps Personal history of colonic polyps Encounter for screening colonoscopy documented in this encounter Care Teams Distribution Systems Superintendent Relationship Specialty Start Date End Date [place] [address] PCP - General Family Medicine 03/14/24 Marissa Farr MD [address] [facility] [address] [place] [address] 12/31/16 documented as of this encounter
--- OUTSIDE RECORDS SUMMARY | 2024-10-20 18:02 | XMS_ITS | Encounter Summary ---
Author Organization [facility] Address [address] [place] [address] Care Team Providers Care Infrastructure Analyst Name Role Phone Marissa Farr MD Unavailable [phone] Yesenia Gardner NP Primary Care Provider [phone] Reason for Visit * Reason Comments Cough SOB, symptoms since Tuesday Encounter Details Date Type Department Care Team (Late st Contact Info) Description 10/20/2024 5:30 PM CDT Office Visit [facility] Con[facility]ient Care at [address] [address] Magalys Iniguez MAR [address] [place] [address] [address] [place] [address] Shortness of breath (Primary Dx); Other chest pain; Tachycardia; Acute cough Social History Tobacco Use Types Packs/Day Years Used Date Smoking Tobacco: Never Smokeless Tobacco: Never [facility] Utilities Answer Date Recorded In the past 12 months has [facility] [employer], gas, oil, or water [employer] threatened to shut off services in your [...] often do you attend chur ch or nondenominational services? More than 4 times per year 08/08/2024 Do you belong to any clubs o r organizations such as latter-day groups, unions, fraternal or athletic groups, or [...] staff should administer the PHQ-9) 1 09/20/2024 [facility] - Occupational Stress Questionnaire Answer Date Recorded [...] any time in the past 12 m [facility], were you homeless or living in a halfway (including now)? 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 documented as of this encounter Last Filed Vital Signs Vital Sign Reading Time Taken Comments Blood Pressure 100/71 10/20/2024 5:29 PM CDT Pulse 124 10/20/2024 5:29 PM CDT Temperature 36.7 C (98.1 F) 10/20/2024 5:29 PM CDT Respiratory Rate 22 10/20/2024 5:29 PM CDT Oxygen Saturation 97% 10/20/2024 5:29 PM CDT Inhaled Oxygen Concentration - - Weight 95.7 kg (211 lb) 10/20/2024 5:29 PM CDT Height - - Body Mass Index 32.09 09/20/2024 11:19 AM CDT documented in this encounter Plan of Treatment Upcoming Encounters Date Type Department Care Team (Late st Contact Info) Description 11/14/2024 10:00 AM CDT Hospital Encounter [address] [address] Spike Newberry, DO [address] [facility] [address] [place] [address] 11/14/2024 10:00 AM CDT - 11/14/2024 10:30 AM CDT Surgery [address] [address] Spike Newberry DO [address] [facility] [address] [place] [address] COLONOSCOPY Scheduled Procedures Name Priority Associated Diagnoses Date/Ti me COLONOSCOPY History of colonic polyps Encounter for screening colonoscopy 11/14/2024 10:00 AM CDT documented as of this encounter Visit Diagnoses Diagnosis History of colonic polyps Personal history of colonic polyps Encounter for screening colonoscopy Shortness of breath- Primary Other chest pain Tachycardia Unspecified tachycardia Acute cough History of colonic polyps Personal history of colonic polyps Encounter for screening colonoscopy documented in this encounter Care Teams Infrastructure Analyst Relationship Specialty Start Date End Date Yesenia Gardner NP [address] [place] [address] PCP - General Family Medicine 03/14/24 Marissa Farr MD [address] [place] [address] 12/31/16 documented as of this encounter
--- NOTE | 2024-10-20 18:03 | ECG_ITS ---
Test Date: 2024-10-20 18:12:12 Measurements Intervals [place] Rate: 90 P: 49 [place]: 151 QRS: -47 QRSD: 84 T: 66 QT: 366 QTc: 449 Interpretive Statements SINUS RHYTHM LEFT ANTERIOR FASCICULAR BLOCK LEFT VENTRICULAR HYPERTROPHY AND ST-T CHANGE CONSIDER ANTERIOR INFARCT, AGE INDETERMINATE BORDERLINE ST-T WAVE ABNORMALITY- HIGH LATERAL LEADS BASELINE ARTIFACT- I, III, AVR, AVL, V2 ABNORMAL ECG No previous ECG available for comparison Electronically Signed On 10-20-2024 20:53:26 CDT by Kobi Cope D.O.
--- OUTSIDE RECORDS SUMMARY | 2024-10-20 18:03 | XMS_ITS | Referral Summary ---
Author Organization [facility] al Address [address] [place] [address] Care Team Providers Care Spreader Box Operator Name Role Phone Marissa Farr MD Unavailable [phone] Luis Gardner NP Primary Care Provider [phone] Encounters Date Type Department Care Team Description 10/20/2024 5:30 PM CDT Office Visit [facility] [address] [address] Magalys Iniguez PA Shortness of breath (Primary Dx); Other chest pain; Tachycardia; Acute cough 10/10/2024 9:30 AM CDT Therapy [facility] 1 [place], [place] [phone] Viviana Collier LCSW Depression, major, single episode, moderate (HCC) (Primary Dx); Grief [F43.21]; ITALO (generalized anxiety disorder) [F41.1] 10/04/2024 Results [facility] [address] [address] Marisabel Syed NP Nontraumatic incomplete tear of left rotator cuff (Primary Dx); Nontraumatic incomplete tear of right rotator cuff 10/02/2024 3:32 PM CDT - 10/02/2024 11:59 PM CDT Hospital Encounter [facility] 1 [place] [address] Chronic left shoulder pain Discharge Disposition: Discharge to home or self care 10/02/2024 3:32 PM CDT - 10/02/2024 11:59 PM CDT Hospital Encounter [facility] 1 [place] [address] Chronic right shoulder pain Discharge Disposition: Discharge to home or self care 09/20/2024 11:30 AM CDT [facility] Visit [facility] [address] [phone] Marisabel Syed NP Trigger finger, right ring finger (Primary Dx); Chronic left shoulder pain; Chronic right shoulder pain; Mixed hyperlipidemia; Hypertension, essential; BMI 32.0-32.9,adult 09/19/2024 9:30 AM CDT Therapy [facility] [address] [place] [address] Viviana Collier LCSW Depression, major, single episode, moderate (HCC) (Primary Dx); Grief [F43.21]; ITALO (generalized anxiety disorder) [F41.1] 08/29/2024 9:30 AM ACUPRESSURE THERAPIST Therapy [facility] [address] [place] [address] Viviana Collier LCSW Depression, major, single episode, moderate (HCC) (Primary Dx); Grief [F43.21]; ITALO (generalized anxiety disorder) [F41.1] 08/24/2024 Results [facility] [address] [phone] Marisabel Syed NP 08/09/2024 7:56 AM ACUPRESSURE THERAPIST - 08/09/2024 11:59 PM ACUPRESSURE THERAPIST Hospital Encounter [facility] 1 [place] [address] Screening mammogram for breast cancer Discharge Disposition: Discharge to home or self care 08/08/2024 9:30 AM ACUPRESSURE THERAPIST Therapy [facility] [address] [place] [address] Viviana Collier LCSW Depression, major, single episode, moderate (HCC) (Primary Dx); Grief [F43.21]; ITALO (generalized anxiety disorder) [F41.1] from Last 3 Months Allergies Active Allergy Reactions Criticality Noted Date Comments Melon Anaphylaxis High 02/07/2017 Medications cyanocobalamin/fol ic acid (vitamin N08-fusvp acid) 1,000-400 mcg lozengeIndications :B12 deficiency Place under the tongue daily Active calcium carb/D3/magnesium/ zinc (calcium carb-D3-mag cdx85-aeld) [phone] ny-fyng-va-mg tabletIndications: Vitamin D deficiency Take 3 tablets by mouth daily Active omeprazole (PriLOSEC) 20 mg capsuleIndications :Gastroesophageal reflux disease, unspecified whether esophagitis present Take 1 capsule (20 mg total) by mouth 2 (two) times a day 180 capsule 1 03/14/20 24 025 Active Xarelto 20 mg tabletIndications: Hx of blood clots Take 1 tablet (20 mg total) by mouth daily with breakfast 90 tablet 1 03/14/20 24 025 Active lisinopril-hydroCH LOROthiazide (ZESTORETIC) 20-25 mg per tabletIndications: Hypertension, essential Take 1 tablet by mouth daily 90 tablet 1 03/14/20 24 025 Active rosuvastatin (CRESTOR) 20 mg tabletIndications: Mixed hyperlipidemia Take 1 tablet (20 mg total) by mouth daily 90 tablet 1 03/14/20 24 025 Active mupirocin (BACTROBAN) 2 % ointmentIndication s:Infected pierced ear, left, initial encounter Apply topically 3 (three) times a day 22 g 03/19/20 24 Active Additional Information Patient not taking.Reported on 10/20/2024 levothyroxine (SYNTHROID) 137 mcg tabletIndications: Acquired hypothyroidism Take 1 tablet (137 mcg total) by mouth daily 90 tablet 1 05/29/20 24 025 Active benzonatate (TESSALON) 100 mg capsuleIndications :Cough Take 1 capsule (100 mg total) by mouth 3 (three) times a day as needed for cough 42 capsule 06/25/20 Active Additional Information Patient not taking.Reported on 10/20/2024 escitalopram (LEXAPRO) 10 mg tabletIndications: Depression, major, single episode, moderate (HCC) Take 1 tablet by mouth once daily 60 tablet 08/22/19 25 Active zolpidem CR (AMBIEN CR) 6.25 mg CR tabletIndications: Primary insomnia TAKE 1 TABLET BY MOUTH NIGHTLY NEEDED FOR SLEEP 30 tablet 08/22/19 25 Active ubrogepant (UBRELVY) 100 mg tablet Take 1 tablet (100 mg total) by mouth as needed for migraine May repeat dose once in 2 hours if no relief. Do not exceed 2 doses in 24 hours. 10 tablet 1 08/28/19 25 026 Active raloxifene (EVISTA) 60 mg tabletIndications: Osteopenia of multiple sites Take 1 tablet (60 mg total) by mouth daily 90 tablet 1 09/01/19 25 026 Active meloxicam (MOBIC) 15 mg tabletIndications: Osteoarthritis Take 1 tablet (15 mg total) by mouth daily 30 tablet 09/21/19 25 Active Active Problems Problem Noted Date Diagnosed Date Colon cancer screening 05/29/2024 Assessment & Plan (05/29/2024 12:05 PM ACUPRESSURE THERAPIST): GI referral placed. Skin cancer screening 05/29/2024 Assessment & Plan (05/29/2024 12:06 PM ACUPRESSURE THERAPIST): Referral placed to dermatology due to history of skin cancer in family, and not being seen in a while. BMI 32.0-32.9,adult 05/29/2024 Assessment & Plan (09/20/2024 12:01 PM CDT): Weight appropriate for patient. Assessment & Plan (05/29/2024 12:06 PM ACUPRESSURE THERAPIST): Weight appropriate for patient. History of colonic polyps 05/29/2024 Encounter for screening colonoscopy 05/29/2024 Chronic migraine with aura w ithout status migrainosus, not intractable 03/14/2024 Assessment & Plan (05/29/2024 12:04 PM ACUPRESSURE THERAPIST): Migraines not well. Still awaiting to get into sleep med and neurology. Will continue to monitor. Insurance only allows 15 tablets of Ubrevly monthly. She is having some relief with Excedrin migraine if caught early. No longer on Rizatriptan due to side-effects with burning in mouth. Assessment & Plan (03/14/2024 10:33 AM CDT): Chronic, not well controlled Has tried sumatriptan, rizatriptan and nurtec with no relief Daith piercing 03/09/2024 Rizatriptan 10 mg as needed Referral to neurology Depression, major, single episode, moderate 02/25 Assessment & Plan (05/29/2024 12:04 PM ACUPRESSURE THERAPIST): Refilled Lexapro. Moods stable and will continue to monitor. Assessment & Plan (04/11/2024 9:47 AM CDT): in May Lost son in 2016 Struggling with grief Lexapro 10 mg daily Assessment & Plan (03/14/2024 10:15 AM CDT): Her in May PHQ-9=14 Hypertension, essential 03/14/2024 Assessment & Plan (09/20/2024 12:01 PM CDT): Blood pressure stable and well controlled. Will continue to monitor. Will continue on Lisinopril-HCTZ. Orders: CBC with auto differential; Future Comprehensive metabolic panel; Future Assessment & Plan (03/14/2024 10:14 AM CDT): Chronic, stable BP at visit; 124/92 Continue Lisinopril-HCTZ 20-25 mg daily Acquired hypothyroidism 03/14/2024 Assessment & Plan (05/29/2024 12:04 PM ACUPRESSURE THERAPIST): Refilled Synthroid. Euthyroid. Will continue to monitor. Assessment & Plan (03/14/2024 10:14 AM CDT): Chronic, stable Labs ordered Continue Levothyroxine 137 mcg daily Will adjust as needed Gastroesophageal reflux disease 03/14/2024 Assessment & Plan (03/14/2024 10:14 AM CDT): Chronic, stable Continue Omeprazole 20 mg BID Mixed hyperlipidemia 03/14/2024 Assessment & Plan (09/20/2024 12:01 PM CDT): Lipid panel ordered. Will continue to monitor. Will continue on Rosuvastatin. Orders: Lipid panel; Future Assessment & Plan (03/14/2024 10:13 AM CDT): Chronic, labs ordered Continue Rosuvastatin 20 mg daily Will adjust as needed B12 deficiency 03/14/2024 Assessment & Plan (03/14/2024 10:11 AM CDT): Labs ordered Continue vitamin supplementation Osteopenia of multiple sites 03/14/2024 Assessment & Plan (03/14/2024 10:13 AM CDT): DEXA 2024 Continue Evista 60 mg daily Vitamin D deficiency 03/14/2024 Assessment & Plan (03/14/2024 10:10 AM CDT): Labs ordered Continue vitamin supplementation Hx of blood clots 03/14/2024 Primary insomnia 03/14/2024 Assessment & Plan (05/29/2024 12:05 PM ACUPRESSURE THERAPIST): Sleep is improved with Zolpidem will continue and refill. Will call and get appointment with sleep med today. Will continue to monitor. Assessment & Plan (04/11/2024 9:47 AM CDT): Not well controlled Would fall asleep but not be able to stay asleep Had one night that she was able to get 6 hours; otherwise only getting 2-3 hours Switch to Ambien CR 6.25 mg nightly Follow up 6 weeks Assessment & Plan (03/14/2024 10:22 AM CDT): Has tried melatonin and trazodone with no relief Ambien 5 mg nightly Follow up 4 weeks S/P left unicompartmental knee replacement 12/16 Resolved Problems Problem Noted Date Diagnosed Date Resolved Date Cervical disc disorder with myelopathy 02/07/2017 03/14/2024 Stenosis, spinal, lumbar 09/03/2014 DJD (degenerative joint disease) of knee 06/28/2012 03/14/2024 Immunizations Immunization Administration Dates Next Due Influenza, Quadrivalent, Spl it, Intramuscular 03/16/2019 Influenza, Quadrivalent, Spl it, Preservative Free, Intramuscular 02/26/2020 Influenza, Trivalent, Preser vative Free, Intramuscular 04/11/2024 Influenza, Unspecified 03/14/2024(Deferr ed: Patient Refused),02/25/2023(Deferred: Patient Refused),02/25/2023(Deferred: Patient Refused) ZOSTER Recombinant 02/26/2020 Social History Tobacco Use Types Packs/Day Years Used Date Smoking Tobacco: Never Smokeless Tobacco: Never Tobacco Cessation:Counseling Given: Not Answered [facility] Utilities Answer Date Recorded In the past 12 months has [employer], oil, or water [employer] threatened to shut off services in your [...] week 08/08/2024 How often do you attend [facility] or mormon services? More than 4 times per year 08/08/2024 Do you belong to any clubs o r organizations such as anabaptism groups, unions, fraternal or athletic groups, or [...] staff should administer the PHQ-9) 1 09/20/2024 [facility] Occupat ional [facility] - Occupational Stress Questionnaire Answer Date Recorded [...] any time in the past 12 m [facility], were you homeless or living in a fci (including now)? 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 Last Filed Vital Signs Vital Sign Reading Time Taken Comments Blood Pressure 100/71 10/20/2024 5:29 PM CDT Pulse 124 10/20/2024 5:29 PM CDT Temperature 36.7 C (98.1 F) 10/20/2024 5:29 PM CDT Respiratory Rate 22 10/20/2024 5:29 PM CDT Oxygen Saturation 97% 10/20/2024 5:29 PM CDT Inhaled Oxygen Concentration - - Weight 95.7 kg (211 lb) 10/20/2024 5:29 PM CDT Height 172.7 cm (5' 7.99 ) 09/20/2024 11:19 AM C DT Body Mass Index 32.09 09/20/2024 11:19 AM CDT Plan of Treatment Upcoming Encounters Date Type Department Care Team (Late st Contact Info) Description 11/14/2024 10:00 AM CDT Hospital Encounter [facility] 1 [place] [address] Spike Newberry, [address] [place] [address] [place] [address] 11/14/2024 10:00 AM CDT - 11/14/2024 10:30 AM CDT Surgery [facility] 1 [place] [address] Spike Newberry, DO [address] [facility] [place] [address] COLONOSCOPY Scheduled Procedures Name Priority Associated Diagnoses Date/Ti me COLONOSCOPY History of colonic polyps Encounter for screening colonoscopy 11/14/2024 10:00 AM CDT Procedures Procedure Name Priority Date/Time Associated Diagnosis Comments MRI SHOULDER LEFT WO CONTRAST Schedule Routine, Read Routine (OP Routine) 10/02/2024 4:26 PM CDT Chronic left shoulder pain MRI SHOULDER RIGHT WO CONTRAST Schedule Routine, Read Routine (OP Routine) 10/02/2024 4:26 PM CDT Chronic right shoulder pain SCREENING MAMMOGRAM BILATERAL W HOMERO Schedule Routine, Read Routine (OP Routine) 08/09/2024 8:12 AM ACUPRESSURE THERAPIST Screening mammogram for breast cancer HEPATITIS C ANTIBODY Routine 03/14/2024 10:54 AM CDT Encounter for hepatitis C screening test for low risk patient from Last 3 Months or Most Recently Relevant to Health Maintenance Results * MRI Shoulder Left WO Contrast (10/02/2024 4:26 PM CDT) Anatomical Region Laterality Modality Upper Extremities Left Magnetic Reson ance 10/04/2024 10:4 8 AM CDT Narrative 10/04/2024 10:54 AM CDT EXAM DESCRIPTION: MRI SHOULDER LEFT WO CONTRAST REASON FOR STUDY: Shoulder pain, chronic, rotator cuff disorder suspected, xray done Started years ago, left shoulder pain and left arm pain , limited range of motion, no injury, no surgery TECHNIQUE: Multiplanar, multisequence MRI of the left shoulder was performed without contrast. COMPARISON: Left shoulder radiographs 08/17/2022 FINDINGS: Bones and Joint: There is moderate to severe acromioclavicular osteoarthritis. There is severe glenohumeral osteoarthritis with joint space loss and chondrosis, bone marrow edema and osteophyte formation. There is glenohumeral joint effusion and synovitis with small joint bodies. Type 2 acromion. No acute fracture. Rotator Cuff: There is high-grade partial-thickness articular surface tear of the supraspinatus and anterior infraspinatus tendon measuring 1.7 x 1.7 cm. There is partial-thickness articular surface tear of the superior subscapularis tendon. There is supraspinatus and infraspinatus tendinosis. Biceps Tendon: The long head of biceps tendon appears slightly medially subluxed from the bicipital groove superiorly. The tendon is intact. Labrum: Inadequately evaluated without intraarticular contrast administration. Given this limitation, there is evidence of degenerative labral tearing. Bursa: Small amount of fluid in the subacromial subdeltoid bursa. Other: The suprascapular notch and quadrilateral space appear normal. Normal rotator cuff musculature volume. IMPRESSION: High-grade partial-thickness articular surface tear of tendinopathic supraspinatus and anterior infraspinatus tendons. Partial-thickness articular surface tear of the superior subscapularis tendon. Severe glenohumeral osteoarthritis. THIS IS AN ELECTRONICALLY VERIFIED FINAL REPORT 10/04/2024 10:54 AM - Electronically signed by Stephon Figueroa M.D. JR: Report ID: [id number] Reading Location: [id number] Procedure Note Stephon Figueroa MD - 10/04/2024 EXAM DESCRIPTION: MRI SHOULDER LEFT WO CONTRAST REASON FOR STUDY: Shoulder pain, chronic, rotator cuff disorder suspected, xray done Started years ago, left shoulder pain and left arm pain , limited range of motion, no injury, no surgery TECHNIQUE: Multiplanar, multisequence MRI of the left shoulder wasperformed without contrast. COMPARISON: Left shoulder radiographs 08/17/2022 FINDINGS: Bones and Joint: There is moderate to severe acromioclavicular osteoarthritis. There is severe glenohumeral osteoarthritis with jointspace loss and chondrosis, bone marrow edema and osteophyte formation. There is glenohumeral joint effusion and synovitis with small joint bodies. Type2 acromion. No acute fracture. Rotator Cuff: There is high-grade partial-thickness articular surfacetear of the supraspinatus and anterior infraspinatus tendon measuring 1.7 x 1.7cm. There is partial-thickness articular surface tear of the superior subscapularis tendon. There is supraspinatus and infraspinatustendinosis. Biceps Tendon: The long head of biceps tendon appears slightly medially subluxed from the bicipital groove superiorly. The tendon is intact. Labrum: Inadequately evaluated without intraarticular contrastadministration. Given this limitation, there is evidence of degenerative labral tearing. Bursa: Small amount of fluid in the subacromial subdeltoid bursa. Other: The suprascapular notch and quadrilateral space appear normal.Normal rotator cuff musculature volume. IMPRESSION: High-grade partial-thickness articular surface tear of tendinopathic supraspinatus and anterior infraspinatus tendons. Partial-thickness articular surface tear of the superior subscapularistendon. Severe glenohumeral osteoarthritis. THIS IS AN ELECTRONICALLY VERIFIED FINAL REPORT 10/04/2024 10:54 AM - Electronically signed by Stephon Figueroa M.D. JR: Report ID: [id number] Reading Location: [id number] Marisabel Syed NP IMG MRI PROCEDURES Final Resu lt * MRI Shoulder Right WO Contrast (10/02/2024 4:26 PM CDT) Anatomical Region Laterality Modality Upper Extremities Right Magnetic Reson ance 10/04/2024 10:5 4 AM CDT Narrative 10/04/2024 11:00 AM CDT EXAM DESCRIPTION: MRI SHOULDER RIGHT WO CONTRAST REASON FOR STUDY: Shoulder pain, chronic, rotator cuff disorder suspected, xray done Started years ago right arm and right shoulder pain, limited range of motion, no surgery, no injury TECHNIQUE: Multiplanar, multisequence MRI of the right shoulder was performed without contrast. COMPARISON: Right shoulder radiographs 08/17/2022 , right shoulder MRI 01/02/2019 FINDINGS: Bones and Joint: Severe acromioclavicular osteoarthritis with increased fluid. There is severe glenohumeral osteoarthritis with joint space loss and chondrosis and with osteophyte formation. Type 2 acromion. No acute fracture. Rotator Cuff: Supraspinatus, infraspinatus and subscapularis tendinopathy. There is partial-thickness tear of the posterior supraspinatus tendon at the footprint measuring 12 x 13 mm. This appears slightly larger than on prior. With fluid in the overlying subacromial-subdeltoid bursa, an occult small full-thickness perforation is possible. There is partial-thickness articular surface tear of the superior subscapularis tendon. Biceps Tendon: The long head of biceps tendon appears medially subluxed from the bicipital groove indicating injury to the biceps tommy. The tendon appears intact. Labrum: Inadequately evaluated without intraarticular contrast administration. Bursa: Fluid in the subacromial-subdeltoid bursa. Other: The suprascapular notch and quadrilateral space appear normal. Normal rotator cuff musculature volume. IMPRESSION: Partial-thickness supraspinatus tendon tear. Partial-thickness subscapularis tendon tear. Medial subluxation of the long head of biceps tendon from the bicipital groove. Severe glenohumeral and acromioclavicular osteoarthritis. THIS IS AN ELECTRONICALLY VERIFIED FINAL REPORT 10/04/2024 11:00 AM - Electronically signed by Stephon Figueroa M.D. JR: Report ID: [id number] Reading Location: [place] [id number] Procedure Note Stephon Figueroa MD - 10/04/2024 EXAM DESCRIPTION: MRI SHOULDER RIGHT WO CONTRAST REASON FOR STUDY: Shoulder pain, chronic, rotator cuff disorder suspected, xray done Started years ago right arm and right shoulder pain, limited range ofmotion, no surgery, no injury TECHNIQUE: Multiplanar, multisequence MRI of the right shoulder was performed without contrast. COMPARISON: Right shoulder radiographs 08/17/2022 , right shoulder MRI 01/02/2019 FINDINGS: Bones and Joint: Severe acromioclavicular osteoarthritis with increased fluid. There is severe glenohumeral osteoarthritis with joint space lossand chondrosis and with osteophyte formation. Type 2 acromion. No acute fracture. Rotator Cuff: Supraspinatus, infraspinatus and subscapularistendinopathy. There is partial-thickness tear of the posterior supraspinatus tendon atthe footprint measuring 12 x 13 mm. This appears slightly larger than onprior. With fluid in the overlying subacromial-subdeltoid bursa, an occult small full-thickness perforation is possible. There is partial-thicknessarticular surface tear of the superior subscapularis tendon. Biceps Tendon: The long head of biceps tendon appears medially subluxedfrom the bicipital groove indicating injury to the biceps tommy. The tendon appears intact. Labrum: Inadequately evaluated without intraarticular contrastadministration. Bursa: Fluid in the subacromial-subdeltoid bursa. Other: The suprascapular notch and quadrilateral space appear normal.Normal rotator cuff musculature volume. IMPRESSION: Partial-thickness supraspinatus tendon tear. Partial-thickness subscapularis tendon tear. Medial subluxation of the long head of biceps tendon from the bicipital groove. Severe glenohumeral and acromioclavicular osteoarthritis. THIS IS AN ELECTRONICALLY VERIFIED FINAL REPORT 10/04/2024 11:00 AM - Electronically signed by Stephon Figueroa M.D. JR: Report ID: [id number] Reading Location: [place] [address] Marisabel Syed NP IMG MRI PROCEDURES Final Resu lt * Screening Mammogram Bilateral W Homero (08/09/2024 8:12 AM ACUPRESSURE THERAPIST) Anatomical Region Laterality Modality Breast Bilateral Mammography 08/24/2024 8:07 AM ACUPRESSURE THERAPIST Impressions 08/24/2024 8:07 AM ACUPRESSURE THERAPIST There is no mammographic evidence of malignancy. A 1 year screening mammogram is recommended. BI-RADS: 1 - Negative. The patient has been or will be contacted. The patient will be entered into a reminder system with a target due date of 1 year for her next mammogram. Electronically signed by: Laury Pal M.D. Narrative 08/24/2024 8:07 AM ACUPRESSURE THERAPIST EXAMINATION: SCREENING MAMMOGRAM BILATERAL W HOMERO ORDERING HEALTHCARE PROVIDER: LUIS GARDNER HISTORY: Routine screening mammography. COMPARISON: Previous been requested but have not been provided. TECHNIQUE: CC and MLO views of the bilateral breasts were obtained with digital technique using breast tomosynthesis with C view. Computer aided detection was utilized. FINDINGS: DENSITY: There are scattered areas of fibroglandular density. BREASTS: There is post operative change in the left breast. There are benign bilateral microcalcifications including vascular calcifications. There are no suspicious masses, suspicious calcifications, or other suspicious findings in either breast. There has been no suspicious interval change. us Luis Gardner NP IMG MAMMO PROCEDURES Final Resul t * Hepatitis C antibody Blood (03/14/2024 10:54 AM CDT) Hep C Ab Nonreactive Nonreactive Comment: Interpretive Data Nonreactive: Antibodies to HCV not detected. Does NOT exclude the possibility of recent exposure to HCV. Equivocal: Equivocal for HCV antibodies. Supplemental molecular testing will be automatically performed to determine infection status in accordance with current CDC screening recommendations. Reactive: Positive for HCV antibodies. This may represent current or past HCV infection. Supplemental molecular testing will be automatically performed to determine current infection status in accordance with current CDC screening recommendations. Interpretive data was last revised on 2019. Testing performed by: [facility], [address] [place] [address]., [id number] Blood 03/14/2024 10:5 4 AM CDT 03/14/2024 7:41 PM CDT us Luis Gardner NP LAB MICROBIOLOGY - GENERAL ORDER RAVINDRA Final Result [facility]) [facility] [employer] [employer] [facility] Department [place] [address] from Last 3 Months or Most Recently Relevant to Health Maintenance Insurance [employer] [place] [place] [facility] Care Teams Spreader Box Operator Relationship Specialty Start Date End Date Luis Gardner NP [address] [place] [address] PCP - General Family Medicine 9/18/24 Marissa Farr MD [address] [place] [address] 12/31/16
--- OUTSIDE RECORDS SUMMARY | 2024-10-20 18:03 | XMS_ITS | Patient Health Record ---
Author Organization [facility] Address [address] [place] [address] SUN[place] Robertson [address] Care Team Providers Care Corrections Specialist Name Role Phone CRISTINA MEJÍA, YOSEPH Primary Care Provider Ming Murdock Unavailable [phone] ALLERGIES Allergen (clinical drug ingredient) Drug/Non Drug Allergy documented on EMR Reaction Allergy Type Onset Date Status aspirin Aspirin Unknown Drug Allergy Active REASON FOR REFERRAL No Information MEDICATIONS Medication SIG (Take, Route, Frequency, Duration) Notes Start Date End Date Status Voltaren 1 % apply 4 grams to brigitte nful joint(s) Transdermal 4x/day as needed for pain for 30 days Active Omeprazole 20 MG 1 capsule 30 minutes before morning meal Orally Once a day for 30 day(s) Active Furosemide 20 MG 1 tablet Orally Once a day Active SUMAtriptan Succinate 100 MG 1 tablet at least 2 hours between doses as needed Orally Twice a day for migraine for 90 days 04/29/2020 Active Xarelto 20 MG 1 tablet with food O rally Once a day for 30 day(s) Active Lisinopril-hydroCHLOROthiaz sima 20-12.5 MG TAKE 1 TABLET BY MOUTH DAILY Oral for 90 Active Levothyroxine Sodium 125 MCG Orally Active Famotidine 20 MG 1 tablet at bedtime as needed Orally Once a day for 30 day(s) Active Qulipta 60 MG 1 tablet Orally Once a day for 30 days Active Vitamin D-3 Active Percocet 10-325 MG 1 tablet Orally ever y 8 hours prn severe pain for 30 days 02/08/2023 Active Gabapentin 800 MG 1 tablet Oral every 6 hours for 30 days 05/12/2022 Active Voltaren 1 % Transdermal Activ e Multivitamin Active Narcan 4 MG/0.1ML 1 actuation in one nostril x1, Nasally 2-3 minutes as needed until the patient is responsive or EMS arrives Active Armodafinil 250 MG Orally A ctive SOCIAL HISTORY Sex Assigned At : Social History Observation Description Sex Assigned At Unknown PROBLEMS Problem Type ICD Code Onset Dates Problem Status W/U Status Risk SNOMED Code Notes Problem Migraine with aura, intractable, without status migrainosus (G43.119) Active confirmed Refractory migraine with aura (166611043) Problem Unspecified mononeuropathy of unspecified lower limb (G57.90) Active confirmed Mononeuropathy of lower limb (790220507) Problem Unilateral primary osteoarthritis, left knee (M17.12) Active confirmed Osteoarthritis of knee (159211518) Problem Osteoarthritis of knee, unspecified (M17.9) Active confirmed Osteoarthritis of knee (378940033) Bilateral Problem Primary osteoarthritis, 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) Active confirmed Localized, primary osteoarthritis of the shoulder region (183116776) Problem Pain in left knee (M25.562) Active confirmed Pain of left knee joint (finding) (240677701348927 ) Problem Spinal enthesopathy, site unspecified (M46.00) Active confirmed Spinal enthesopathy (78679042) Problem Sacroiliitis, not elsewhere classified (M46.1) Active confirmed Solitary sacroiliitis (947266605) Problem Spondylosis without myelopathy or radiculopathy, cervical region (M47.812) Active confirmed Cervical spondylosis without myelopathy (391780938) Problem Spondylosis without myelopathy or radiculopathy, cervicothoracic region (M47.813) Active confirmed Cervical spondylosis without myelopathy (164923411) Problem Spondylosis without myelopathy or radiculopathy, lumbar region (M47.816) Active confirmed Lumbosacral spondylosis without myelopathy (82034411) Problem Spondylosis without myelopathy or radiculopathy, lumbosacral region (M47.817) Active confirmed Lumbosacral spondylosis without myelopathy (disorder) (85588897) Problem Other intervertebral disc displacement, lumbar region (M51.26) Active confirmed Displacement of lumbar intervertebral disc without myelopathy (17663452) Problem Other intervertebral disc degeneration, lumbar region (M51.36) Active confirmed Degeneration of lumbar intervertebral disc (77926166) Problem Radiculopathy, cervical region (M54.12) Active confirmed Cervical radiculopathy (94197365) Problem Radiculopathy, lumbar region (M54.16) Active confirmed Lumbar radiculopathy (217585169) Problem Radiculopathy, lumbosacral region (M54.17) Active confirmed Lumbosacral radiculopathy (4437655) Problem Unspecified rotator cuff tear or rupture of right shoulder, not specified as traumatic (M75.101) Active confirmed Rupture of righ t rotator cuff (748231785236560 03) Problem Postlaminectomy syndrome, not elsewhere classified (M96.1) Active confirmed Post-laminectom y syndrome (94502913) Problem Osseous stenosis of neural canal of lumbar region (M99.33) Active confirmed Spinal stenosis of lumbar region (29536096) Problem prison (current) use of anticoagulants (Z79.01) Active confirmed Long-term current use of anticoagulant (753634451) Problem prison (current) use of 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 (Z79.891) Active confirmed High risk drug monitoring status (366868628) Problem Other group home (current) drug therapy (Z79.899) Active confirmed Long-term current use of drug therapy (140274003) Problem Myalgia of auxiliary muscles, head and neck (M79.12) Active confirmed PLAN OF TREATMENT Pending Test Test Name Order Date MRI : Shoulder, right 12/12/2018 Chem 7 (BUN, Cr, Lytes, Glu) 09/10/2022 MRI : Lumbar Spine with and without Cont rast (95877) 07/15/2022 MRI : Lumbar Spine with and without Cont rast (30139) 2020 XRAY right shoulder 06/30/2021 [facility] Results 04/06/2022 [facility] Results 06/04/2022 [facility] Results 08/23/2022 XRAY : Shoulder LEFT 08/12/2022 Insurance Providers Payer Name Payer Address Payer Phone Subscriber Number Group Number Insured Name Patient Relationship to Insured Coverage Start Date Coverage End Date [facility] [address] [place] [address] [phone] [id number] BUSHROW, WINDY Self - patient is the insured MEDICAL (GENERAL) HISTORY Medical History History ICD Code Hypertension Hypothyroidism Degenerative joint disease DVT Surgical History Surgery Date(Month/Year) Left knee arthroscopy 2010 Bilateral foot surgery 1969 Lumpectomy-Left Breast/Chest Wall Right Knee Replacement 08/31/2019 Left Knee Surgery (unknown procedure)
--- OUTSIDE RECORDS SUMMARY | 2024-10-20 18:03 | XMS_ITS | Clinical Summary ---
Author Organization [facility] Address [address] [place] [address] Care Team Providers Care Endocrinology Specialist Name Role Phone Marissa Farr MD Unavailable [phone] Luis Gardner NP Primary Care Provider Allergies Active Allergy Reactions Criticality Noted Date Comments Melon Anaphylaxis High 02/07/2017 Medications cyanocobalamin/fol ic acid (vitamin O75-ypiyv acid) 1,000-400 mcg lozengeIndications :B12 deficiency Place under the tongue daily Active calcium carb/D3/magnesium/ zinc (calcium carb-D3-mag lqf58-nyxo) [phone] fs-ytvx-on-mg tabletIndications: Vitamin D deficiency Take 3 tablets [...] 05/29/2024 Assessment & Plan (05/29/2024 12:05 PM PLASTER WHITTLER): GI referral placed. Skin cancer screening 05/29/2024 Assessment & Plan (05/29/2024 12:06 PM PLASTER WHITTLER): Referral placed to dermatology due to history of skin cancer in family, and not being seen in a while. BMI 32.0-32.9,adult 05/29/2024 Assessment & Plan (09/20/2024 12:01 PM CDT): Weight appropriate for patient. Assessment & Plan (05/29/2024 12:06 PM PLASTER WHITTLER): Weight appropriate for patient. History of colonic polyps 05/29/2024 Encounter for screening colonoscopy 05/29/2024 Chronic migraine with aura w ithout status migrainosus, not intractable 03/14/2024 Assessment & Plan (05/29/2024 12:04 PM PLASTER WHITTLER): Migraines not well. Still awaiting to get [...] 02/25 Assessment & Plan (05/29/2024 12:04 PM PLASTER WHITTLER): Refilled Lexapro. Moods stable and will continue [...] 03/14/2024 Assessment & Plan (05/29/2024 12:04 PM PLASTER WHITTLER): Refilled Synthroid. Euthyroid. Will continue to monitor. [...] 03/14/2024 Assessment & Plan (05/29/2024 12:05 PM PLASTER WHITTLER): Sleep is improved with Zolpidem will continue [...] (degenerative joint disease) of knee 06/28/2012 03/14/2024 Encounters Date Type Department Care Team Description 10/20/2024 5:30 PM CDT Office Visit [facility] [address] [phone] Magalys Iniguez PA Shortness of breath (Primary Dx); Other chest pain; Tachycardia; Acute cough 10/10/2024 9:30 AM CDT Therapy [facility] [address] [place], [place] [phone] Viviana Collier LCSW Depression, major, single episode, moderate (HCC) (Primary Dx); Grief [F43.21]; ITALO (generalized anxiety disorder) [F41.1] 10/04/2024 Results [facility] [address] [address] Marisabel Syed, HEALTHCARE CORPORATE ACCOUNT DIRECTOR Nontraumatic incomplete tear of left rotator cuff (Primary Dx); Nontraumatic incomplete tear of right rotator cuff 10/02/2024 3:32 PM CDT - 10/02/2024 11:59 PM CDT Hospital Encounter [facility] [address] [place] [address] Chronic left shoulder pain Discharge Disposition: Discharge to home or self care 10/02/2024 3:32 PM CDT - 10/02/2024 11:59 PM CDT Hospital Encounter [facility] [address] [place] [address] Chronic right shoulder pain Discharge Disposition: Discharge to home or self care 09/20/2024 11:30 AM CDT Office Visit [facility] [address] [place] [address] Marisabel Syed NP Trigger finger, right ring finger (Primary Dx); Chronic left shoulder pain; Chronic right shoulder pain; Mixed hyperlipidemia; Hypertension, essential; BMI 32.0-32.9,adult 09/19/2024 9:30 AM CDT Therapy [facility] [address] [place] [address] Viviana Collier LCSW Depression, major, single episode, moderate (HCC) (Primary Dx); Grief [F43.21]; ITALO (generalized anxiety disorder) [F41.1] 08/29/2024 9:30 AM PLASTER WHITTLER Therapy [facility] [address] [place] [address] Viviana Collier LCSW Depression, major, single episode, moderate (HCC) (Primary Dx); Grief [F43.21]; ITALO (generalized anxiety disorder) [F41.1] 08/24/2024 Results [facility] [address] [place] [phone] Marisabel Syed NP 08/09/2024 7:56 AM PLASTER WHITTLER - 08/09/2024 11:59 PM PLASTER WHITTLER Hospital Encounter [facility] [address] [place] [phone] Screening mammogram for breast cancer Discharge Disposition: Discharge to home or self care 08/08/2024 9:30 AM PLASTER WHITTLER Therapy [facility] [address] [place], [place] [phone] Viviana Collier LCSW Depression, major, single episode, moderate (HCC) (Primary Dx); Grief [F43.21]; ITALO (generalized anxiety disorder) [F41.1] from Last 3 Months Immunizations Immunization Administration Dates Next Due Influenza, Quadrivalent, Spl it, Intramuscular 03/16/2019 Influenza, Quadrivalent, Spl it, Preservative Free, Intramuscular 02/26/2020 Influenza, Trivalent, Preser vative Free, Intramuscular 04/11/2024 Influenza, Unspecified 03/14/2024(Deferr ed: Patient Refused),02/25/2023(Deferred: Patient Refused),02/25/2023(Deferred: Patient Refused) ZOSTER Recombinant 02/26/2020 Surgical History Surgery Date Site/Laterality Comments LUMBAR DISC SURGERY Lower Back Surgery Lumbar Disc - (Added by TW Conv) APPENDECTOMY HYSTERECTOMY BONE CYST EXCISION spine KNEE SURGERY patial replacement BREAST BIOPSY Left excisional bx benign Medical History Medical History Date Comments Hyperlipidemia Hypertension Thyroid disease Headache Clotting disorder Vitamin D deficiency Osteopenia DJD (degenerative joint disease) of knee 013 Family History Medical History Relation Name Comments Heart attack Mother Family history of myocardial infarction - (Added by TW Conv) Lung cancer Mother Skin cancer Mother Stroke Mother Family history of cerebrovascular accident (CVA) - (Added by TW Conv) Heart attack Mother's Brother 1 Family hi story of myocardial infarction - (Added by TW Conv) Stroke Mother's Brother 2 Family hi story of cerebrovascular accident (CVA) - (Added by TW Conv) Stroke Other Family history of cerebrovascular accident (CVA) - Relation: Grandparent (Added by TW Conv) Skin cancer Sister 1 Skin cancer Sister 2 Relation Name Status Comments Brother Alive Father Alive Mother Mother's Brother 1 Mother's Brother 2 Other Sister 1 Alive Sister 2 Alive Social History Tobacco Use Types Packs/Day Years Used Date Smoking Tobacco: Never Smokeless Tobacco: Never Tobacco Cessation:Counseling Given: Not Answered [facility] Utilities Answer Date Recorded In the past 12 months has th e [employer], gas, oil, or water [employer] threatened to shut off services in your [...] week 08/08/2024 How often do you attend [facility] or orthodox services? More than 4 times per year 08/08/2024 Do you belong to any clubs o r organizations such as spiritism groups, unions, fraternal or athletic groups, or [...] staff should administer the PHQ-9) 1 09/20/2024 [facility] - Occupational Stress [...] any time in the past 12 m [facility], were you homeless or living in a long-term (including now)? 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 Obstetrics History Para Term AB IAB SAB Ectopic Multiple Livin g Live Births 3 3 3 Date Outcome GA Total Labor Labor/2nd/3rd Weight Sex Type Anes PTL Leticia A1 A5 Name Clin Term Term Term Last Filed Vital Signs Vital Sign Reading [...] Description 11/14/2024 10:00 AM CDT Hospital Encounter [address] [address] Spike Newberry DO 4 [facility] [address] [place] [address] 11/14/2024 10:00 AM CDT - 11/14/2024 10:30 AM CDT Surgery [address] [address] Spike Newberry DO 4 [facility] [address] [place] [address] COLONOSCOPY Scheduled Procedures Name Priority Associated Diagnoses Date/Ti me COLONOSCOPY History of colonic polyps Encounter for screening colonoscopy 11/14/2024 10:00 AM CDT Health Maintenance Due Date Last Done Comments Colon Cancer Screening-Colonoscopy 1960 DTaP/Tdap/Td Vaccine (1 - Tdap) 10/28/1970 Regular Well Visit/Exam 18-64 10/28/1977 Zoster Vaccine (2 of 2) 04/22/2020 02/26/2020 Breast Cancer Screening-Mammogram 08/09/2025 08/09/2024 Depression Screening 09/20/2025 09/20/2024, 08/08/2024, 05/29/2024, Additional history exists Hepatitis B Screening Completed 03/14/2024 Hepatitis C Screening Completed 03/14/2024 Influenza Vaccine Completed 04/11/2024, , 03/16/2019 Pneumococcal vaccine <65 Aged Out No longer eligible based on patient's age to complete this topic Procedures Procedure Name Priority Date/Time Associated Diagnosis Comments MRI SHOULDER LEFT WO CONTRAST Schedule Routine, Read Routine (OP Routine) 10/02/2024 4:26 PM CDT Chronic left shoulder pain MRI SHOULDER RIGHT WO CONTRAST Schedule Routine, Read Routine (OP Routine) 10/02/2024 4:26 PM CDT Chronic right shoulder pain SCREENING MAMMOGRAM BILATERAL W HOMERO Schedule Routine, Read Routine (OP Routine) 08/09/2024 8:12 AM PLASTER WHITTLER Screening mammogram for breast cancer HEPATITIS C [...] by Stephon Figueroa M.D. JR: Report ID: [id number] Reading Location: [id number] Procedure Note Stephon Figueroa MD - 10/04/2024 [...] by Stephon Figueroa M.D. JR: Report ID: [id number] Reading Location: [id number] Marisabel Syed NP IMG MRI PROCEDURES Final [...] by Stephon Figueroa M.D. JR: Report ID: [id number] Reading Location: [id number] Procedure Note Stephon Figueroa MD - 10/04/2024 [...] by Stephon Figueroa M.D. JR: Report ID: [id number] Reading Location: [id number] Marisabel Syed NP IMG MRI PROCEDURES Final Resu lt * Screening Mammogram Bilateral W Homero (08/09/2024 8:12 AM PLASTER WHITTLER) Anatomical Region Laterality Modality Breast Bilateral Mammography 08/24/2024 8:07 AM PLASTER WHITTLER Impressions 08/24/2024 8:07 AM PLASTER WHITTLER There is no mammographic evidence of malignancy. A 1 year screening mammogram is recommended. BI-RADS: 1 - Negative. The patient has been or will be contacted. The patient will be entered into a reminder system with a target due date of 1 year for her next mammogram. Electronically signed by: Laury Pal M.D. Narrative 08/24/2024 8:07 AM PLASTER WHITTLER EXAMINATION: SCREENING MAMMOGRAM BILATERAL W HOMERO ORDERING [...] last revised on 2019. Testing performed by: [facility], [address] [place] [address], [place]., [address] Blood 03/14/2024 10:5 4 AM CDT 03/14/2024 7:41 PM CDT Luis Gardner NP LAB MICROBIOLOGY - GENERAL ORDER RAVINDRA Final Result [facility] Department [place] [address] from Last 3 Months or Most Recently Relevant to Health Maintenance Insurance [facility] [employer] [facility] Care Teams Endocrinology Specialist Relationship Specialty Start Date End Date Luis Gardner NP [address] [place] [address] PCP - General Family Medicine 03/14/24 Marissa Farr MD [address] [place] [address] 12/31/16
[2024-10-20 18:05] VITALS: BP 127/89; PULSE 110; RESP 16; TEMP 36.6; O2SAT 98
[2024-10-20 18:31] LABS: Basophils Absolute Auto 0.1 K/mm3 (0.0-0.1); Basophils Percent Auto 0.8 % (0.2-1.2); Eosinophils Absolute Auto 0.3 K/mm3 (0-0.3); Eosinophils Percent Auto 4.3 % (0-4.4); Hematocrit 44.6 % (37.0-47.0); Immature Granulocyte Absolute 0.01 K/mm3 (0.00-0.031); Immature Granulocyte Percent A 0.2 % (0-0.5); Lymphocytes Absolute Auto 1.47 K/mm3 (0.9-3.2); Lymphocytes Percent Auto 23.3 % (18.3-44.2); Mean Corpuscular HGB Conc 31.4 g/dl (32-36); Mean Corpuscular Hemoglobin 26.4 pg (26-34); Mean Platelet Volume 10.8 fl (7.4-10.4); Monocytes Absolute Auto 0.5 K/mm3 (0.1-0.6); Monocytes Percent Auto 7.4 % (2.6-8.5); Platelet Count Result 292 k/mm3 (150-375); Red Blood Count 5.31 M/mm3 (4.2-5.4); Red Cell Distribution Width 13.5 % (11.5-14.5); White Blood Count 6.3 K/mm3 (4.5-10.0)
[2024-10-20 18:41] LABS: Alanine Aminotransferase 20 U/L (6-35); Albumin Level 4.1 g/dL (3.5-5.1); Alkaline Phosphatase 63 U/L (38-126); Anion Gap 8 mmol/L (4-12); Aspartate Amino Transferase 22 U/L (14-36); Bilirubin,Total 0.8 mg/dL (0.2-1.3); Blood Urea Nitrogen 19 mg/dL (7-17); Carbon Dioxide 24 mmol/L (22-30); Chloride 105 mmol/L (98-107); Estimated CRCL calculation 69 ml/min; Estimated Glomerular Filt Rate > 60; Glucose 111 mg/dL (65-110); Lipase 253 U/L (23-300); Potassium 3.3 mmol/L (3.4-5.0); Sodium 137 mmol/L (137-145)
[2024-10-20 18:49] LABS: INR 1.2; Prothrombin Time 15.6 Seconds (11.1-14.7)
[2024-10-20 18:50] LABS: Partial Thromboplastin Time 30.1 Seconds (22.3-36.8)
[2024-10-20 18:52] LABS: Troponin I < 0.012 ng/mL (0.000-0.034)
--- NOTE | 2024-10-20 20:49 | ECG_ITS ---
Test Date: 2024-10-20 20:59:19 Measurements Intervals [place] Rate: 76 P: 47 [place]: 150 QRS: -41 QRSD: 86 T: 30 QT: 384 QTc: 434 Interpretive Statements SINUS RHYTHM LEFT AXIS DEVIATION PATTERN CONSISTENT WITH PULMONARY DISEASE VOLTAGE CRITERIA FOR LVH BORDERLINE ECG Compared to ECG 10/20/2024 18:12:12 NO SIGNIFICANT CHANGE Electronically Signed On 10-20-2024 21:10:16 CDT by Kobi Cope D.O.
[2024-10-20 21:33] LABS: Troponin I < 0.012 ng/mL (0.000-0.034)
[2024-10-20 21:36] VITALS: BP 112/65; PULSE 94; RESP 17; TEMP 36.9; O2SAT 100
--- OUTSIDE RECORDS SUMMARY | 2024-10-20 22:17 | XMS_ITS | Referral Summary ---
Author Organization [facility] al Address 1 [place] [address] Care Team Providers Care Implementation Director Name Role Phone Marissa Farr MD Unavailable [phone] Luis Gardner NP Primary Care Provider [phone] Encounters Date Type Department Care Team Description 10/20/2024 5:30 PM CDT Office Visit [facility] Medical [facility] Care at [address] [address] Magalys Iniguez PA Shortness of breath (Primary Dx); Other chest pain; Tachycardia; Acute cough 10/10/2024 9:30 AM CDT Therapy [facility] 1 [place], [place] [phone] Viviana Collier LCSW Depression, major, single episode, moderate (HCC) (Primary Dx); Grief [F43.21]; ITALO (generalized anxiety disorder) [F41.1] 10/04/2024 Results [facility] [address] [address] Marisabel Syed NP Nontraumatic incomplete tear of left rotator cuff (Primary Dx); Nontraumatic incomplete tear of right rotator cuff 10/02/2024 3:32 PM CDT - 10/02/2024 11:59 PM CDT Hospital Encounter [facility] 1 [place] [address] Chronic left shoulder pain Discharge Disposition: Discharge to home or self care 10/02/2024 3:32 PM CDT - 10/02/2024 11:59 PM CDT Hospital Encounter [facility] 1 [place] [address] Chronic right shoulder pain Discharge Disposition: Discharge to home or self care 09/20/2024 11:30 AM CDT [facility] [address] [address] Marisabel Syed NP Trigger finger, right ring finger (Primary Dx); Chronic left shoulder pain; Chronic right shoulder pain; Mixed hyperlipidemia; Hypertension, essential; BMI 32.0-32.9,adult 09/19/2024 9:30 AM CDT Therapy [facility] [address] [place] [address] Viviana Collier LCSW Depression, major, single episode, moderate (HCC) (Primary Dx); Grief [F43.21]; ITALO (generalized anxiety disorder) [F41.1] 08/29/2024 9:30 AM BOTTLE CARRIER Therapy [facility] [address] [place] [address] Viviana Collier LCSW Depression, major, single episode, moderate (HCC) (Primary Dx); Grief [F43.21]; ITALO (generalized anxiety disorder) [F41.1] 08/24/2024 Results [facility] [address] [address] Marisabel Syed NP 08/09/2024 7:56 AM BOTTLE CARRIER - 08/09/2024 11:59 PM BOTTLE CARRIER Hospital Encounter [facility] 1 [place] [address] Screening mammogram for breast cancer Discharge Disposition: Discharge to home or self care 08/08/2024 9:30 AM BOTTLE CARRIER Therapy [facility] [address] [place] [address] Viviana Collier LCSW Depression, major, single episode, moderate (HCC) (Primary Dx); Grief [F43.21]; ITALO (generalized anxiety disorder) [F41.1] from Last 3 Months Allergies Active Allergy Reactions Criticality Noted Date Comments Melon Anaphylaxis High 02/07/2017 Medications cyanocobalamin/fol ic acid (vitamin J13-vemdo acid) 1,000-400 mcg lozengeIndications :B12 deficiency Place under the tongue daily Active calcium carb/D3/magnesium/ zinc (calcium carb-D3-mag dul50-cyxa) 371-824-902-5 dd-wtew-ua-mg tabletIndications: Vitamin D deficiency Take 3 tablets [...] 05/29/2024 Assessment & Plan (05/29/2024 12:05 PM BOTTLE CARRIER): GI referral placed. Skin cancer screening 05/29/2024 Assessment & Plan (05/29/2024 12:06 PM BOTTLE CARRIER): Referral placed to dermatology due to history of skin cancer in family, and not being seen in a while. BMI 32.0-32.9,adult 05/29/2024 Assessment & Plan (09/20/2024 12:01 PM CDT): Weight appropriate for patient. Assessment & Plan (05/29/2024 12:06 PM BOTTLE CARRIER): Weight appropriate for patient. History of colonic polyps 05/29/2024 Encounter for screening colonoscopy 05/29/2024 Chronic migraine with aura w ithout status migrainosus, not intractable 03/14/2024 Assessment & Plan (05/29/2024 12:04 PM BOTTLE CARRIER): Migraines not well. Still awaiting to get [...] 02/25 Assessment & Plan (05/29/2024 12:04 PM BOTTLE CARRIER): Refilled Lexapro. Moods stable and will continue [...] 03/14/2024 Assessment & Plan (05/29/2024 12:04 PM BOTTLE CARRIER): Refilled Synthroid. Euthyroid. Will continue to monitor. [...] 03/14/2024 Assessment & Plan (05/29/2024 12:05 PM BOTTLE CARRIER): Sleep is improved with Zolpidem will continue [...] Tobacco: Never Tobacco Cessation:Counseling Given: Not Answered [facility] Utilities Answer Date Recorded In the past 12 months has [employer], oil, or water [employer] threatened to shut off services in your [...] week 08/08/2024 How often do you attend [facility] or jew services? More than 4 times per year 08/08/2024 Do you belong to any clubs o r organizations such as jew groups, unions, fraternal or athletic groups, or [...] staff should administer the PHQ-9) 1 09/20/2024 [facility] of Occupat ional [facility] - Occupational Stress Questionnaire Answer Date [...] any time in the past 12 m [facility], were you homeless or living in a alf (including now)? No 08/08/2024 Comments No Sex [...] Description 11/14/2024 10:00 AM CDT Hospital Encounter [facility] 1 [place] [address] Spike Newberry, [address] [place] [address] [place] [address] 11/14/2024 10:00 AM CDT - 11/14/2024 10:30 AM CDT Surgery [facility] 1 [place] [address] Spike Newberry, DO [address] [facility] [place] [address] COLONOSCOPY Scheduled Procedures Name Priority Associated Diagnoses [...] Read Routine (OP Routine) 08/09/2024 8:12 AM BOTTLE CARRIER Screening mammogram for breast cancer HEPATITIS C [...] by Stephon Figueroa M.D. JR: Report ID: [id number] Reading Location: [id number] Procedure Note Stephon Figueroa MD - 10/04/2024 [...] by Stephon Figueroa M.D. JR: Report ID: [id number] Reading Location: [id number] Marisabel Syed NP IMG MRI PROCEDURES Final [...] by Stephon Figueroa M.D. JR: Report ID: [id number] Reading Location: [place] [address] Procedure Note Stephon Figueroa MD - 10/04/2024 [...] by Stephon Figueroa M.D. JR: Report ID: [id number] Reading Location: [place] [address] Marisabel Syed NP IMG MRI PROCEDURES Final Resu lt * Screening Mammogram Bilateral W Homero (08/09/2024 8:12 AM BOTTLE CARRIER) Anatomical Region Laterality Modality Breast Bilateral Mammography 08/24/2024 8:07 AM BOTTLE CARRIER Impressions 08/24/2024 8:07 AM BOTTLE CARRIER There is no mammographic evidence of malignancy. A 1 year screening mammogram is recommended. BI-RADS: 1 - Negative. The patient has been or will be contacted. The patient will be entered into a reminder system with a target due date of 1 year for her next mammogram. Electronically signed by: Laury Pal M.D. Narrative 08/24/2024 8:07 AM BOTTLE CARRIER EXAMINATION: SCREENING MAMMOGRAM BILATERAL W HOMERO ORDERING [...] last revised on 2019. Testing performed by: [facility], [address] [place] [address]., [address] Blood 03/14/2024 10:5 4 AM CDT 03/14/2024 7:41 PM CDT us Luis Gardner NP LAB MICROBIOLOGY - GENERAL ORDER RAVINDRA Final Result [facility] THAYER) 1 [employer] [facility] Department [place] [address] from Last 3 Months or Most Recently Relevant to Health Maintenance Insurance BLUE ACCESS ID [facility] Care Teams Implementation Director Relationship Specialty Start Date End Date Luis Gardner NP [address] [place] [address] PCP - General Family Medicine 9/18/24 Marissa Farr MD [address] [place] [address] 12/31/16
--- OUTSIDE RECORDS SUMMARY | 2024-10-20 22:17 | XMS_ITS | Encounter Summary ---
Author Organization [facility] Address [address] [place] [address] Care Team Providers Care Gun Stock Maker Name Role Phone Marissa Farr MD Unavailable [phone] Yesenia Gardner NP Primary Care Provider [phone] Reason for Referral * Consultation (Routine) - Closed Specialty Diagnoses / Procedures Referred By Oscar schrader Referred To Contact Orthopedic Surgery Diagnoses Nontraumatic incomplete tear of left rotator cuff Nontraumatic incomplete tear of right rotator cuff Marisabel Syed NP [address] [place] [address] Phone: tel: fax: [facility] Medical [facility] Orthopedics and Sports Medicine [address] [place] [address] Phone: tel: fax: Referral ID Status Reason Start Date Expiration Date V isits Requested Visits Authorized [id number] Closed Specialty Services Required 10/04/2024 11/03/2025 1 1 Question Answer Please select the performing region: [facility] Group [[id number]] Please select the performing department: [facility] [[id number]] # of visits: 1 Comments Bilateral shoulder tendon tears on recent MRI Encounter Details Date Type Department Care Team (Late st Contact Info) Description 10/04/2024 Results [facility] [address] [place] [address] Marisabel Syed NP [address] [place] [address] Nontraumatic incomplete tear of left rotator cuff (Primary Dx); Nontraumatic incomplete tear of right rotator cuff Social History Tobacco Use Types Packs/Day Years Used Date Smoking Tobacco: Never Smokeless Tobacco: Never [facility] (formerly [employer])ities Answer Date Recorded In the past 12 months has e [employer], gas, oil, or water [employer] threatened to shut off services in your [...] often do you attend chur ch or hinduism services? More than 4 times per year 08/08/2024 Do you belong to any clubs o r organizations such as evangelical groups, unions, fraternal or athletic groups, or [...] staff should administer the PHQ-9) 1 09/20/2024 [facility] of Occupat ional [facility] - Occupational Stress Questionnaire Answer Date [...] any time in the past 12 m [facility], were you homeless or living in a prison (including now)? No 08/08/2024 Comments No Sex [...] Description 11/14/2024 10:00 AM CDT Hospital Encounter [address] [address] Spike Newberry, [address] [facility] [address] [place] [address] 11/14/2024 10:00 AM CDT - 11/14/2024 10:30 AM CDT Surgery [address] [address] Spike Newberry, DO [address] [facility] [address] [place] [address] COLONOSCOPY Scheduled Procedures Name Priority Associated Diagnoses [...] colonoscopy documented in this encounter Care Teams Gun Stock Maker Relationship Specialty Start Date End [place] [id number] PCP - General Family Medicine 03/14/24 Marissa Farr MD [address] [facility] [address] [place] [address] 12/31/16 documented as of this encounter
--- OUTSIDE RECORDS SUMMARY | 2024-10-20 22:17 | XMS_ITS | Encounter Summary ---
Author Organization [facility] Address [address] [place] [address] Care Team Providers Care Goat Herder Name Role Phone Marissa Farr MD Unavailable [phone] Yesenia Gardner NP Primary Care Provider [phone] Reason for Visit * Reason Comments Cough SOB, symptoms since Tuesday Encounter Details Date Type Department Care Team (Late st Contact Info) Description 10/20/2024 5:30 PM CDT Office Visit [facility] Medical Group Convenient Care at [address] [address] Magalys Iniguez MAR [address] [place] [address] [address] [place] [address] Shortness of breath (Primary Dx); Other chest pain; Tachycardia; Acute cough Social History Tobacco Use Types Packs/Day Years Used Date Smoking Tobacco: Never Smokeless Tobacco: Never [facility] Utilities Answer Date Recorded In the past 12 months has [facility] [employer], gas, oil, or water [employer] threatened to shut off services in your [...] often do you attend chur ch or protestant services? More than 4 times per year [...] staff should administer the PHQ-9) 1 09/20/2024 [facility] [place] of Occupat ional Health - Occupational Stress [...] Description 11/14/2024 10:00 AM CDT Hospital Encounter [address] [address] Spike Newberry, DO [address] [facility] [address] [place] [address] 11/14/2024 10:00 AM CDT - 11/14/2024 10:30 AM CDT Surgery [address] [address] Spike Newberry DO [address] [facility] [address] [place] [address] COLONOSCOPY Scheduled Procedures Name Priority Associated Diagnoses [...] colonoscopy documented in this encounter Care Teams Goat Herder Relationship Specialty Start Date End Date Yesenia Gardner NP [address] [place] [address] PCP - General Family Medicine 03/14/24 Marissa Farr MD [address] [place] [address] 12/31/16 documented as of this encounter
--- OUTSIDE RECORDS SUMMARY | 2024-10-20 22:17 | XMS_ITS | Clinical Summary ---
Author Organization [facility] Address 1 [place] [address] Care Team Providers Care Shipfitter Apprentice Name Role Phone Marissa Farr MD Unavailable [phone] Luis Gardner NP Primary Care Provider [phone] Allergies Active Allergy Reactions Criticality Noted Date Comments Melon Anaphylaxis High 02/07/2017 Medications cyanocobalamin/fol ic acid (vitamin I76-jsywh acid) 1,000-400 mcg lozengeIndications :B12 deficiency [address] under the tongue daily Active calcium carb/D3/magnesium/ zinc (calcium carb-D3-mag lzk65-eems) 372-754-127-5 ks-hood-rq-mg tabletIndications: Vitamin D deficiency Take 3 tablets [...] 05/29/2024 Assessment & Plan (05/29/2024 12:05 PM HAT MAKER): GI referral placed. Skin cancer screening 05/29/2024 Assessment & Plan (05/29/2024 12:06 PM HAT MAKER): Referral placed to dermatology due to history of skin cancer in family, and not being seen in a while. BMI 32.0-32.9,adult 05/29/2024 Assessment & Plan (09/20/2024 12:01 PM CDT): Weight appropriate for patient. Assessment & Plan (05/29/2024 12:06 PM HAT MAKER): Weight appropriate for patient. History of colonic polyps 05/29/2024 Encounter for screening colonoscopy 05/29/2024 Chronic migraine with aura w ithout status migrainosus, not intractable 03/14/2024 Assessment & Plan (05/29/2024 12:04 PM HAT MAKER): Migraines not well. Still awaiting to get [...] 02/25 Assessment & Plan (05/29/2024 12:04 PM HAT MAKER): Refilled Lexapro. Moods stable and will continue [...] 03/14/2024 Assessment & Plan (05/29/2024 12:04 PM HAT MAKER): Refilled Synthroid. Euthyroid. Will continue to monitor. [...] 03/14/2024 Assessment & Plan (05/29/2024 12:05 PM HAT MAKER): Sleep is improved with Zolpidem will continue [...] Description 10/20/2024 5:30 PM CDT Office Visit [facility] Medical Group Convenient Care at [address] [phone] Magalys Iniguez PA Shortness of breath (Primary Dx); Other chest pain; Tachycardia; Acute cough 10/10/2024 9:30 AM CDT Therapy [facility] Warm Hand Off Program 1 [place], [place] [phone] Viviana Collier LCSW Depression, major, single episode, moderate (HCC) (Primary Dx); Grief [F43.21]; ITALO (generalized anxiety disorder) [F41.1] 10/04/2024 Results [facility] [address] [address] Marisabel Syed, [employer] Nontraumatic incomplete tear of left rotator cuff (Primary Dx); Nontraumatic incomplete tear of right rotator cuff 10/02/2024 3:32 PM CDT - 10/02/2024 11:59 PM CDT Hospital Encounter [facility] [address] [place] [address] Chronic left shoulder pain Discharge Disposition: Discharge to home or self care 10/02/2024 3:32 PM CDT - 10/02/2024 11:59 PM CDT Hospital Encounter [facility] [address] [place] [address] Chronic right shoulder pain Discharge Disposition: Discharge to home or self care 09/20/2024 11:30 AM CDT Office Visit [facility] [address] [place] [address] Marisabel Syed NP Trigger finger, right ring finger (Primary Dx); Chronic left shoulder pain; Chronic right shoulder pain; Mixed hyperlipidemia; Hypertension, essential; BMI 32.0-32.9,adult 09/19/2024 9:30 AM CDT Therapy [facility] [address] [place] [address] Viviana Collier LCSW Depression, major, single episode, moderate (HCC) (Primary Dx); Grief [F43.21]; ITALO (generalized anxiety disorder) [F41.1] 08/29/2024 9:30 AM HAT MAKER Therapy [facility] [address] [place] [address] Viviana Collier LCSW Depression, major, single episode, moderate (HCC) (Primary Dx); Grief [F43.21]; ITALO (generalized anxiety disorder) [F41.1] 08/24/2024 Results [facility] [address] [place] [phone] Marisabel Syed NP 08/09/2024 7:56 AM HAT MAKER - 08/09/2024 11:59 PM HAT MAKER Hospital Encounter [facility] [address] [place] [address] Screening mammogram for breast cancer Discharge Disposition: Discharge to home or self care 08/08/2024 9:30 AM HAT MAKER Therapy [facility] 1 [place], [place] [phone] Viviana Collier LCSW Depression, major, single episode, [...] Tobacco: Never Tobacco Cessation:Counseling Given: Not Answered [facility] Utilities Answer Date Recorded In the past 12 months has th e [employer], gas, oil, or water [employer] threatened to shut off services in your [...] week 08/08/2024 How often do you attend [facility] or mormonism services? More than 4 times per year 08/08/2024 Do you belong to any clubs o r organizations such as presybeterian groups, unions, fraternal or athletic groups, or [...] staff should administer the PHQ-9) 1 09/20/2024 [facility] of Occupat ional Health - [...] any time in the past 12 m [facility], were you homeless or living in a fpc (including now)? No 08/08/2024 Comments No Sex [...] Description 11/14/2024 10:00 AM CDT Hospital Encounter [address] [address] Spike Newberry DO 4 [facility] [address] [place] [address] 11/14/2024 10:00 AM CDT - 11/14/2024 10:30 AM CDT Surgery [address] [address] Spike Newberry DO [address] [facility] [address] [place] [address] COLONOSCOPY Scheduled Procedures Name Priority Associated Diagnoses [...] Read Routine (OP Routine) 08/09/2024 8:12 AM HAT MAKER Screening mammogram for breast cancer HEPATITIS C [...] by Stephon Figueroa M.D. JR: Report ID: [id number] Reading Location: [id number] Procedure Note Stephon Figueroa MD - 10/04/2024 [...] by Stephon Figueroa M.D. JR: Report ID: [id number] Reading Location: [id number] Marisabel Syed NP IMG MRI PROCEDURES [...] by Stephon Figueroa M.D. JR: Report ID: [id number] Reading Location: [id number] Procedure Note Stephon Figueroa MD - 10/04/2024 [...] by Stephon Figueroa M.D. JR: Report ID: [id number] Reading Location: [id number] Marisabel Syed NP IMG MRI PROCEDURES Final Resu lt * Screening Mammogram Bilateral W Homero (08/09/2024 8:12 AM HAT MAKER) Anatomical Region Laterality Modality Breast Bilateral Mammography 08/24/2024 8:07 AM HAT MAKER Impressions 08/24/2024 8:07 AM HAT MAKER There is no mammographic evidence of malignancy. A 1 year screening mammogram is recommended. BI-RADS: 1 - Negative. The patient has been or will be contacted. The patient will be entered into a reminder system with a target due date of 1 year for her next mammogram. Electronically signed by: Laury Pal M.D. Narrative 08/24/2024 8:07 AM HAT MAKER EXAMINATION: SCREENING MAMMOGRAM BILATERAL W HOMERO ORDERING [...] last revised on 2019. Testing performed by: [facility], [address] [place] [address], [place]., [address] Blood 03/14/2024 10:5 4 AM CDT 03/14/2024 7:41 PM CDT Luis Gardner NP LAB MICROBIOLOGY - GENERAL ORDER RAVINDRA Final Result [facility] BODE 1 [facility] Department [place] [address] from Last 3 Months or Most Recently Relevant to Health Maintenance Insurance [facility] Vitals ([email or web address]) [facility] Subscriber Plan / Payer (Ef fective 2018-Present) Name:Ivory Simon Member ID:[id number] Relation to Subscriber:Self Name:IVORY SIMON Subscriber ID:[id number] Payer ID:[id number] Type:Vitals ([email or web address]) HMO/PPO Address: [address] [place] [address] [facility] Care Teams Shipfitter Apprentice Relationship Specialty Start Date End Date Luis Gardner NP [address] [place] [address] PCP - General Family Medicine 03/14/24 Marissa Farr MD [address] [place] [address] 12/31/16
--- NOTE | 2024-10-20 22:19 | ED_ITS ---
HPI - General Adult General Chief complaint: Chest Pain Stated complaint: sob, high HR, CP Time Seen by Provider: 10/20/24 21:43 History of Present Illness HPI narrative: This is a 63-year-old female with history of DVT presenting for chest pain shortness breath palpitations. This morning at 11:00 a.m. while she is watching TV she developed a pressure in the center of her chest, nonradiating, constant, improving. She says this feels like when she had pneumonia in the past. No exacerbating alleviating factors. She has a DVT in her left leg and has missed the last 2 doses of Xarelto because she ran out of medication. She denies fevers chills productive cough. Her symptoms have since improved and she is chest pain-free. She was seen in urgent care earlier today and since emergency department for further evaluation. Related Data Home Medications ?Medication ?Instructions ?Recorded ?Confirmed ?Last Taken ?Type multivitamin 1 tablet PO DAILY 04/06/21 01/13/24 Unknown History omeprazole 40 mg capsule,delayed 40 mg PO DAILY 01/13/24 01/13/24 Unknown History release Allergies Allergy/AdvReac Type Severity Reaction Status Date / Time melons AdvReac Severe THROAT Uncoded 01/13/24 07:23 SWELLING PMFSH Past Medical History Medical History Abnormality of gait Acute deep vein thrombosis (DVT) of calf muscle vein of left lower extremity Adult hypothyroidism Balance disorder Cellulitis of thumb, right Chronic deep vein thrombosis (DVT) of left lower extremity Close exposure to 2019 novel coronavirus Cough DVT (deep venous thrombosis) Dyspepsia due to dysmotility Fatigue after COVID-19 vaccination HTN (hypertension) Hypersomnia Left leg pain MDD (major depressive disorder), recurrent episode Muscle weakness (generalized) Narcolepsy Normal echocardiogram Palpitations Respiratory illness with fever Spondylosis, cervical, with myelopathy Vaccine counseling Weight loss Surgical History Surgical History H/O arthroscopy of shoulder R shoulder 06/2019 H/O endoscopy 08/22/19 H/O excision of lamina of cervical vertebra for decompression of spinal cord History of total knee arthroplasty R august 2019 Family History Family History Father Hypertension Grandparent Family history of malignant melanoma Mother Family history of malignant melanoma, Onset Age: 65 Hypertension Other Cerebrovascular accident Family history of allergic disorder Family history of cardiovascular disease Family history of malignant neoplasm Social History Social History Social History: Smoking status: Never smoker Second hand tobacco smoke exposure: No Alcohol intake: never Substance use: never Substance use type: does not use Living arrangements: with family Occupation/Education: retired Gender identity (if verbalized by the patient): Female Sexual Orientation (if Verbalized by the Patient): Straight or Heterosexual Exam 2 Narrative: APPEARANCE: No apparent distress. Head: atraumatic. EYES: EOMI, NOSE: Atraumatic NECK: Trachea midline RESPIRATORY: No increased rate of breathing CTAB CARDIOVASCULAR: RRR, no peripheral edema ABDOMINAL: Non-distended soft nontender MUSCULOSKELETAl: No obvious deformities NEURO: Alert. Moving 4/4 extremities SKIN:: Warm, dry. Normal color PSYCHIATRIC: Normal affect Course Vital Signs Vital signs: Vital Signs Temperature 97.9 F 10/20/24 18:05 Pulse Rate 110 H 10/20/24 18:05 Respiratory Rate 16 10/20/24 18:05 Blood Pressure 127/89 10/20/24 18:05 Pulse Oximetry 98 10/20/24 18:05 Oxygen Delivery Room Air 10/20/24 18:05 Temperature 98.4 F 10/20/24 21:36 Pulse Rate 62 10/20/24 23:39 Respiratory Rate 18 10/20/24 23:39 Blood Pressure 133/89 10/20/24 23:39 Pulse Oximetry 98 10/20/24 23:39 Oxygen Delivery Room Air 10/20/24 21:36 Medical Decision Making [facility] Narrative Medical decision making narrative: -Course: 63-year-old female presenting with an episode of chest pain pressure earlier today. She is currently pain-free. Workup including CTA PE, troponin x2 EKG unremarkable. Patient has been pain-free throughout the workup. She was given her home dose of Xarelto and encouraged to call the pharmacy to refill her medications. She has been discharged with return precautions. Primary care follow-up -DDX includes but is not limited to: PE, pneumonia, ACS, dissection, pleurisy, pneumothorax Independent EKG interpretation: Rhythm [sinus], Rate [90], [place] -[normal], [place] -[normal], QRS [narrow], QTC [normal], T waves -[negative for concerning inversions], ST Segments - [Negative for concerning elevations] Final interpretations: [Normal Sinus Rhythm] Vital Signs Vital Signs: Vital Signs Temperature 97.9 F 10/20/24 18:05 Pulse Rate 110 H 10/20/24 18:05 Respiratory Rate 16 10/20/24 18:05 Blood Pressure 127/89 10/20/24 18:05 Pulse Oximetry 98 10/20/24 18:05 Oxygen Delivery Room Air 10/20/24 18:05 Temperature 98.4 F 10/20/24 21:36 Pulse Rate 62 10/20/24 23:39 Respiratory Rate 18 10/20/24 23:39 Blood Pressure 133/89 10/20/24 23:39 Pulse Oximetry 98 10/20/24 23:39 Oxygen Delivery Room Air 10/20/24 21:36 Lab Data 10/20/24 18:22 10/20/24 18:22 Labs: Lab Results 10/20/24 10/20/24 10/21/24 Range/Units 18:22 21:03 00:17 WBC 6.3 (4.5-10.0) K/mm3 RBC 5.31 (4.2-5.4) M/mm3 Hgb 14.0 (12.0-15.0) g/dL Hct 44.6 (37.0-47.0) % MCV 84.0 (80-100) fl MCH 26.4 (26-34) pg MCHC 31.4 L (32-36) g/dl RDW 13.5 (11.5-14.5) % Plt Count 292 (150-375) k/mm3 MPV 10.8 H (7.4-10.4) fl Immature Gran % (Auto) 0.2 (0-0.5) % Neut % (Auto) 64.0 (45.5-73.1) % Lymph % (Auto) 23.3 (18.3-44.2) % Berg[place] % (Auto) 7.4 (2.6-8.5) % Eos % (Auto) 4.3 (0-4.4) % Baso % (Auto) 0.8 (0.2-1.2) % Lymph # (Auto) 1.47 (0.9-3.2) K/mm3 [place] # (Auto) 0.5 (0.1-0.6) K/mm3 Eos # (Auto) 0.3 (0-0.3) K/mm3 Baso # (Auto) 0.1 (0.0-0.1) K/mm3 Abs Immat Gran (auto) 0.01 (0.00-0.031) K/mm3 Absolute Neuts (auto) 4.0 (1.3-6.7) K/mm3 Absolute Nucleated RBC 0.000 (0.0-0.012) K/mm3 Nucleated RBC % 0.0 (0.0-0.2) % PT 15.6 H (11.1-14.7) Seconds INR 1.2 APTT 30.1 (22.3-36.8) Seconds Sodium 137 (137-145) mmol/L Potassium 3.3 L (3.4-5.0) mmol/L Chloride 105 (98-107) mmol/L Carbon Dioxide 24 (22-30) mmol/L Anion Gap 8 (4-12) mmol/L BUN 19 H (7-17) mg/dL Creatinine 0.86 (0.7-1.0) mg/dL Estim Creat Clear Calc 69 ml/min Estimated GFR > 60 (59 - ) Glucose 111 H (65-110) mg/dL Calcium 9.0 (8.4-10.2) mg/dL Total Bilirubin 0.8 (0.2-1.3) mg/dL AST 22 (14-36) U/L ALT 20 (6-35) U/L Alkaline Phosphatase 63 (38-126) U/L Troponin I < 0.012 < 0.012 < 0.012 (0.000-0.034) ng/mL Total Protein 7.0 (6.3-8.2) g/dL Albumin 4.1 (3.5-5.1) g/dL Lipase 253 (23-300) U/L Discharge Plan Discharge Clinical Impression: Chest pain Patient Disposition: Home Condition: Stable Instructions: Antibiotic Form, Chest Pain (ED) Additional Instructions: You were seen in the emergency department for chest pain. Your workup here was reassuring. Your symptoms have resolved. Please follow-up with your primary care physician for further management. If you develop any new or worsening symptoms please return to ER for re-evaluation. Patient Language: Salvadorean Prescriptions: No Action multivitamin Tablet 1 tablet PO DAILY gabapentin 800 mg tablet 800 mg PO QID Qty: 360 0RF lisinopril-hydrochlorothiazide 20-25 mg tablet See Rx Instructions .ROUTE .COMPLEX Qty: 90 0RF Dose Instruction: TAKE 1 TABLET BY MOUTH DAILY Rx Instructions: TAKE 1 TABLET BY MOUTH DAILY omeprazole 40 mg capsule,delayed release(DR/EC) 40 mg PO DAILY Patient Comments: obtaining OTC Xarelto 20 mg tablet See Rx Instructions .ROUTE .COMPLEX Qty: 90 1RF Dose Instruction: TAKE 1 TABLET BY MOUTH DAILY Rx Instructions: TAKE 1 TABLET BY MOUTH DAILY rizatriptan [Maxalt] 10 mg tablet 10 mg PO ONCE Qty: 10 3RF Rx Instructions: as a single dose levothyroxine 137 mcg tablet 137 mcg PO DAILY Qty: 90 0RF trazodone 50 mg tablet 50 mg PO QHS PRN (Reason: insomnia) Qty: 30 2RF rosuvastatin 20 mg tablet 20 mg PO DAILY Qty: 90 1RF Follow-up/Referrals: Jj,Yesenia Rice [Primary Care Provider] -
[2024-10-20] MEDS: RIVAROXABAN 20 MG TABLET PO (23:38)
[2024-10-20 23:39] VITALS: BP 133/89; PULSE 62; RESP 18; O2SAT 98
--- NOTE | 2024-10-21 00:03 | ECG_ITS ---
Test Date: 2024-10-21 00:39:21 Measurements Intervals [place] Rate: 57 P: 21 MT: 165 QRS: -31 QRSD: 93 T: 10 QT: 460 QTc: 451 Interpretive Statements SINUS BRADYCARDIA LEFT AXIS DEVIATION PATTERN CONSISTENT WITH PULMONARY DISEASE INCOMPLETE RIGHT BUNDLE BRANCH BLOCK VOLTAGE CRITERIA FOR LVH BORDERLINE T WAVE ABNORMALITY- ANT/INF LEADS BASELINE ARTIFACT- I, AVR, AVL BORDERLINE ECG Compared to ECG 10/20/2024 20:59:19 HEART RATE HAS DECREASED Electronically Signed On 10-21-2024 08:02:03 CDT by Kobi Cope D.O.
[2024-10-21 01:09] LABS: Troponin I < 0.012 ng/mL (0.000-0.034)
[2024-10-21 01:34] VITALS: BP 150/98; PULSE 64; RESP 19; O2SAT 97
== END 2024-10-21 01:37 | disposition home or self-care (01) ==
PROVIDERS: Emergency Medicine; Emergency Provider Emergency Medicine; PCP Nurse Practitioner
DX: R07.9 Chest pain, unspecified (principal); I10 Essential (primary) hypertension; E03.9 Hypothyroidism, unspecified; Z96.651 Presence of right artificial knee joint; Z86.718 Personal history of other venous thrombosis and embolism; Z87.01 Personal history of pneumonia (recurrent); I51.7 Cardiomegaly; I44.4 Left anterior fascicular block; R94.31 Abnormal electrocardiogram [ECG] [EKG]; R00.1 Bradycardia, unspecified
CPT/HCPCS: 36415; 71046; 71275; 80053; 83690; 84484; 85025; 85610; 85730; 93005; 99284; A9270; Q9967

== ENCOUNTER 2025-02-16 09:56 | Emergency (ER) | payer MEDICARE, MEDICAID, SELFPAY ==
--- OUTSIDE RECORDS SUMMARY | 2017-07-25 05:00 | XMS_ITS | Continuity of Care Document ---
Author Organization [facility] Address [address] [place] [address] [address] [place] [address] Phone Care Team Providers Care Heel Gummer Name Role Phone Alexander PT,MPT,ATC, Aston Unavailable Unavai lable Procedures Procedure Date Progress Note Therapeutic Exercise Therapeutic Activities Neuromuscular Re-Ed Therapeutic Exercise Therapeutic Activities Neuromuscular Re-Ed Therapeutic Exercise Therapeutic Activities Neuromuscular Re-Ed Therapeutic Exercise Therapeutic Activities Neuromuscular Re-Ed Therapeutic Exercise Therapeutic Activities Neuromuscular Re-Ed Therapeutic Exercise Therapeutic Activities Neuromuscular Re-Ed Therapeutic Exercise Therapeutic Activities Neuromuscular Re-Ed Therapeutic Exercise Therapeutic Activities Neuromuscular Re-Ed Therapeutic Exercise Therapeutic Activities Neuromuscular Re-Ed Therapeutic Exercise Therapeutic Activities Neuromuscular Re-Ed Therapeutic Exercise Therapeutic Activities Neuromuscular Re-Ed Therapeutic Exercise Therapeutic Activities Neuromuscular Re-Ed Therapeutic Exercise Therapeutic Activities Neuromuscular Re-Ed PT Re-evaluation Therapeutic Exercise Therapeutic Activities Neuromuscular Re-Ed Therapeutic Exercise Therapeutic Activities Neuromuscular Re-Ed Therapeutic Exercise Therapeutic Activities Neuromuscular Re-Ed Therapeutic Exercise Therapeutic Activities Neuromuscular Re-Ed Therapeutic Exercise Therapeutic Activities Neuromuscular Re-Ed Therapeutic Exercise Therapeutic Activities Neuromuscular Re-Ed Therapeutic Exercise Therapeutic Activities Neuromuscular Re-Ed Therapeutic Exercise Therapeutic Activities Neuromuscular Re-Ed Therapeutic Exercise Therapeutic Activities Neuromuscular Re-Ed Therapeutic Exercise Therapeutic Activities Progress Note Therapeutic Exercise Therapeutic Activities Neuromuscular Re-Ed Therapeutic Exercise Therapeutic Activities Neuromuscular Re-Ed Therapeutic Exercise Therapeutic Activities Neuromuscular Re-Ed Therapeutic Exercise Therapeutic Activities Neuromuscular Re-Ed Therapeutic Exercise Therapeutic Activities Neuromuscular Re-Ed Therapeutic Exercise Therapeutic Activities Neuromuscular Re-Ed Therapeutic Exercise Therapeutic Activities Neuromuscular Re-Ed Therapeutic Exercise Therapeutic Activities Neuromuscular Re-Ed Therapeutic Exercise Therapeutic Activities Neuromuscular Re-Ed Therapeutic Exercise Therapeutic Activities Theratube/band Therapeutic Exercise Therapeutic Activities Therapeutic Exercise Therapeutic Activities Neuromuscular Re-Ed Progress Note Therapeutic Exercise Therapeutic Activities Neuromuscular Re-Ed Progress Note Therapeutic Exercise Therapeutic Activities Therapeutic Exercise Therapeutic Activities Therapeutic Exercise Therapeutic Activities Neuromuscular Re-Ed Therapeutic Exercise Therapeutic Activities Neuromuscular Re-Ed Therapeutic Exercise Therapeutic Activities Therapeutic Exercise Therapeutic Activities Neuromuscular Re-Ed Therapeutic Exercise Therapeutic Activities Neuromuscular Re-Ed Therapeutic Exercise Therapeutic Activities Therapeutic Exercise Therapeutic Activities Therapeutic Exercise Therapeutic Activities Neuromuscular Re-Ed Therapeutic Exercise Therapeutic Activities Therapeutic Exercise Therapeutic Activities Neuromuscular Re-Ed Therapeutic Exercise Therapeutic Activities Neuromuscular Re-Ed Therapeutic Exercise Therapeutic Activities Therapeutic Exercise Therapeutic Activities Therapeutic Exercise Therapeutic Activities Neuromuscular Re-Ed Therapeutic Exercise Therapeutic Activities Therapeutic Exercise Therapeutic Activities Neuromuscular Re-Ed PT Evaluation High Complexity 7 Therapeutic Exercise Neuromuscular Re-Ed OT Evaluation Moderate Complexity Therapeutic Exercise Therapeutic Activities Advance Directives Directive Yes / No Effective Date File Name No Information Encounters Encounter Description Practice Location Reason(s) For Visit Diagnoses Date Provider Providers Copied on Encounter [facility], [address] [address], [place], [place], [address], [place] tel:[phone] [place] No Information 8 Munoz Aston. , [place], [place]. Referring Provider: Marissa harrison, [facility] [address], [place], [address]. tel:[phone] [facility], [address], [place], [place], [address], [place] tel:[phone] [place] No Information 8 Munoz A[place]. , [place]. Referring Provider: Marissa harrison, [facility] [address], [place], [address]. tel:[phone] [facility] [address], [place], [place], [address], [place] tel:[phone] [place] No Information 8 Munoz A[place]. , [place]. Referring Provider: Marissa harrison, [facility] [address], [place], [address]. tel:[phone] [facility], [place], [place], [address], [place] tel:[phone] [place] No Information 8 Munoz [place]. , [place]. Referring Provider: Marissa harrison, [facility] [address], [place], [address]. tel:[phone] [facility] [address], [place], [place], [address], [place] tel:[phone] [place] No Information 8 Munoz [place]. , [place]. Referring Provider: Marissa harrison, [facility] [address], [place], [address]. tel:[phone] [facility] [address], [place], [place], [address], [place] tel:[phone] [place] No Information 8-201 8 Munoz Atson. , [place], [place]. Referring Provider: Marissa harrison, [facility] [address], [place], [address]. tel:[phone] [facility] [address], [place], [place], [address], [place] tel:[phone] [place] No Information Nico-0 5-201 8 [facility] [place], . Referring Provider: Marissa harrison, [address] [place] [address] [address], [place], [address]. tel:[phone] [facility] [address], [place], [place], [address], [place] tel:[phone] [place] No Information 0 2-201 8 [facility] , [place]. Referring Provider: Marissa harrison, [address] [place] [address] [address], [place], [facility]. tel:[phone] [facility] [address], [place], [place], [address], [place] tel:[phone] [place] No Information Dec-2 9-201 7 [facility] [place]. Referring Provider: Marissa harrison, [address] [place] [address] [address], [place], [address]. tel:[phone] [facility] [address], [place], [place], [address], [place] tel:[phone] [place] No Information Dec-2 6-201 7 [facility] Referring Provider: Marissa harrison, [address] [place] [address] [address], [place], [address]. tel:[phone] [facility] [address], [place], [place], [address], [place] tel:[phone] [place] No Information Dec-2 0-201 7 [place] A[place]. , [place]. Referring Provider: Marissa harrison, [facility] [address], [place], [address]. tel:[phone] [facility], [place], [place], [address], [place] tel:[phone] [place] No Information Dec-1 8-201 7 Munoz [place]. , [place]. Referring Provider: Marissa harrison, [address] [place] [address] [address], [place], [facility]. tel:[phone] [facility], [address], [place], [place], [address], [place] tel:[phone] [place] No Information Dec-0 5-201 7 Munoz [place]. , [place]. Referring Provider: Marissa harrison, [address] [place] [address] [address], [place], [facility]. tel:[phone] [place] [address] [address] [facility], [place], [place], [address], tel:[phone] [place] No Information Nov-3 0-201 7 Munoz A[place]. , [place], [place]. Referring Provider: Marissa harrison, [address] [place] [address] [address], [place], [facility]. tel:[phone] [place] [address] [address] [facility], [place], [place], [address], [place] tel:[phone] [place] No Information Nov-2 2-201 7 Munoz A[place]. , [place]. Referring Provider: Marissa harrison, [address] [place] [address] [address], [place], [facility]. tel:[phone] [place] [address] [address], [place], [place], [address], [place] tel:[phone] [place] No Information Nov-2 0-201 7 Munoz A[place]. , [place], [place]. Referring Provider: Marissa harrison, [address] [place] [address] [address], [place], [address]. tel:[phone] [facility] [address], [place], [place], [address], [place] tel:[phone] [place] No Information Nov-1 6-201 7 Munoz [place]. , [place]. Referring Provider: Marissa harrison, [facility] [address], [place], [address]. tel:[phone] [facility] [address], [place], [place], [address], [place] tel:[phone] [place] No Information Nov-1 4-201 7 [facility] [place]. Referring Provider: Marissa harrison, [address] [place] [address] [address], [place], [facility]. tel:[phone] [facility] [address], [place], [address], [place] tel:[phone] [place] No Information Nov-0 9-201 7 [facility] Referring Provider: Marissa harrison, [address] [place] [address] [address], [place], [facility]. tel:[phone] [facility] [address] [facility], [place], [address], [place] tel:[phone] [place] No Information Nov-0 7-201 7 [facility]. [place], [place], [place]. Referring Provider: Marissa harrison, [address] [place] [address] [address], [place], [facility]. tel:[phone] [facility] [address] [facility] [facility], [place], [address], [place] tel:[phone] [place] No Information Nov-0 3-201 7 Satinder Everett. . Referring Provider: Marissa harrison, [facility] [address], [place], [address]. tel:[phone] [facility] [address], [place], [place], [address], [place] tel:[phone] [place] No Information Nov-0 1-201 7 [facility] Referring Provider: Marissa harrison, [facility] [address], [place], [address]. tel:[phone] [facility] [address], [place], [place], [address], [place] tel:[phone] [place] No Information Mar-2 5-201 7 Munoz [place]. , [place]. Referring Provider: Marissa harrison, [facility] [address], [place], [address]. tel:[phone] [facility] [address], [place], [place], [address], [place] tel:[phone] [place] No Information Mar- 8-201 7 Munoz A[place]. , [place]. Referring Provider: Marissa harrison, [facility] [address], [place], [facility]. tel:[phone] [facility] [address], [place], [place], [address], [place] tel:[phone] [place] No Information Mar- 6-201 7 Munoz A[place]. , [place]. Referring Provider: Marissa harrison, [facility] [address], [place], [address]. tel:[phone] [facility] [address], [place], [place], [address], [place] tel:[phone] [place] No Information Mar- 1-201 7 [place] A[place]. , [place]. Referring Provider: Marissa harrison, [facility] [address], [place], [address]. tel:[phone] [facility] [address], [place], [place], [address], [place] tel:[phone] [place] No Information Mar-1 0-201 7 Munoz A[place]. , [place]. Referring Provider: Marissa harrison, [facility] [address], [place], [address]. tel:[phone] [facility] [address], [place], [place], [address], [place] tel:[phone] [place] No Information Oct-0 4-201 7 [place]. , [place]. Referring Provider: Marissa harrison, [address] [place] [address] [address], [place], [facility]. tel:[phone] [facility] [address], [place], [place], [address], [place] tel:[phone] [place] No Information Oct-0 2-201 7 [place]. , [place], [place]. Referring Provider: Marissa harrison, [address] [place] [address] [address], [place], [facility]. tel:[phone] [facility] [address] [place], [place] [address], [place], [place], [address], [place] tel:[phone] [place] No Information Sep-2 9-201 7 [facility] , [place]. Referring Provider: Marissa harrison, [address] [place] [address] [address], [place], [facility]. tel:[phone] [place] [address] [place], [place] [address], [place], [place], [address], [place] tel:[phone] [place] No Information Sep-2 7-201 7 Satinder Everett. . Referring Provider: Marissa harrison, [address] [place] [address] [address], [place], [facility]. tel:[phone] [facility] [address], [place], [address], [place] tel:[phone] [place] No Information Sep-2 0-201 7 [facility] , [place]. Referring Provider: Marissa harrison, [address] [place] [address] [address], [place], [facility]. tel:[phone] [facility], [place], [place], [address], [place] tel:[phone] [place] No Information Sep-2 0-201 7 Andrea Michelle. [address] [facility], [address], [place], [place], [facility], . tel:[phone] Referring Provider: Marissa harrison, [address] [place] [address] [address], [place], [address]. tel:[phone] [facility] [address], [place], [place], [address], [place] tel:[phone] [place] No Information Sep- 7 Andrea Michelle. [address] [facility], [address], [place], [place], [facility], [place]. tel:[phone] Referring Provider: Marissa harrison, [address] [place] [address] [address], [place], [facility]. tel:[phone] [facility] [address], [place], [place], [address], [place] tel:[phone] [place] No Information Feb- 7 [place], [place] Referring Provider: Marissa harrison, [address] [place] [address] [address], [place], [address]. tel:[phone] [facility] [address], [place], [place], [address], [place] tel:[phone] [place] No Information Feb- 7 [place] Referring Provider: Marissa harrison, [address] [place] [address] [address], [place], [address]. tel:[phone] [facility] [address], [place], [address], [place] tel:[phone] [place] No Information Feb- 7 Andrea Michelle. [address] [facility], [address], [place], [facility], . tel:[phone] Referring Provider: Marissa harrison, [facility] [address], [place], [address]. tel:[phone] [facility] [address], [place], [place], [address], [place] tel:[phone] [place] No Information Sep-1 3-201 7 Andrea Michelle. [address] [facility], [address], [place], [facility], . tel:[phone] Referring Provider: Marissa harrison, [address] [place] [address] [address], [place], [facility]. tel:[phone] [address], [place], [place], [address], [place] tel:[phone] [place] No Information Sep-1 3-201 7 [facility]. Referring Provider: Marissa harrison, [address] [place] [address] [address], [place], [facility]. tel:[phone] [place] [address] [place], [place] [address], [place], [place], [address], tel:[phone] [place] No Information Sep-0 8-201 7 [facility] Referring Provider: Marissa harrison, [address] [place] [address] [address], [place], [facility]. tel:[phone] [place], [place] [address], [place], [address], [place] tel:[phone] [place] No Information Sep-0 8-201 7 Andrea Michelle. [address] [facility], [address], [place], [facility], . tel:[phone] Referring Provider: Marissa harrison, [address] [place] [address] [address], [place], [facility]. tel:[phone] [address], [place], [place], [address], [place] tel:[phone] [place] No Information Sep-0 7-201 7 Nunn [place]. [place], [place]. Referring Provider: Marissa harrison, [address] [place] [address] [address], [place], [facility]. tel:[phone] [facility] [address] [facility], [place], [address], [place] tel:[phone] [place] No Information Feb-0 [facility]. Referring Provider: Marissa harrison, [address], [place], [address]. tel:[phone] [facility] [address] [facility], [place], [address], [place] tel:[phone] [place] No Information Feb-0 7 Andrea Michelle. [address] [place] [address], [address], [place], [facility], . tel:[phone] Referring Provider: Marissa harrison, [facility] [address], [place], [facility]. tel:[phone] [facility] [facility], [place], [address], [place] tel:[phone] [place] No Information Jan-2 7 [place] Fowler. [address] [place] [address], [address], [place], [facility], . tel:[phone] Referring Provider: Marissa harrison, [facility] [address], [place], [address]. tel:[phone] [facility] [address], [place], [address], [place] tel:[phone] [place] No Information Jan-2 [facility] Referring Provider: Marissa harrison, [address], [place], [address]. tel:[phone] [facility] [facility], [place], [address], [place] tel:[phone] [place] No Information Jan-2 Andrea Michelle. [address] [facility], [address], [place], [facility], . tel:[phone] Referring Provider: Marissa harrison, [address], [place], [address]. tel:[phone] [facility] [address], [place], [place], [address], [place] tel:[phone] [place] No Information 7 [place]. Referring Provider: Marissa harrison, [facility] [address], [place], [facility]. tel:[phone] [facility] [address], [place], [place], [address], [place] tel:[phone] [place] No Information [place]. Referring Provider: Marissa harrison, [facility] [address], [place], [facility]. tel:[phone] [facility], [place], [address], [place] tel:[phone] [place] No Information 7 Andrea Michelle. [address] [place] [address], [address], [place], [facility], . tel:[phone] Referring Provider: Marissa harrison, [facility] [address], [place], [facility]. tel:[phone] [facility] [address], [place], [address], [place] tel:[phone] [place] No Information 7 Andrea Michelle. [address] [facility], [address], [place], [facility], . tel:[phone] Referring Provider: Marissa harrison, [address], [place], [address]. tel:[phone] [facility], [place], [place], [address], [place] tel:[phone] [place] No Information [place]. Referring Provider: Marissa harrison, [address] [place] [address] [address], [place], [address]. tel:[phone] [facility] [address], [place], [place], [address], [place] tel:[phone] [place] No Information Andrea Michelle. [address] [facility], [address], [place], [facility], [place]. tel:[phone] Referring Provider: Marissa harrison [address] [place] [address] [address], [place], [facility]. tel:[phone] [facility] [address], [place], [place], [address], tel:[phone] [place] Unsteadiness on feetOther specified postprocedura l statesCervica lgiaOth symptoms and signs involving the musculoskelet al systemPain in right leg [place]. Referring Provider: Marissa harrison, [address] [place] [address] [address], [place], [address]. tel:[phone] [facility], [address], [place] tel:[phone] [place] No Information [place]. Referring Provider: Marissa harrison [address] [place] [address] [address], [place], [address]. tel:[phone] [facility] [facility] [address], [place], [place], [address], [place] tel:[phone] [place] Paresthesia of skinMuscle weakness (generalized) Unspecified lack of coordinationO ther specified health statusOther reduced mobilityColla psed vertebra, NEC, site unsp, subs for fx w routn heal Hauschiandrew Michelle. [address] [facility], [address], [place], [address], [place]. tel:[phone] Referring Provider: Luann Lozano [facility] [address] [facility] [address], [place], [address]. tel:[phone] Family History Family Member Type Diagnosis Age At Onset No Information Payers Payer name Insurance type Covered democrat ID Authoriza tion(s) No Information Social History Type Description Quantity Date Captured Comments Sex Female Smoking Status No Information Chief Complaint And Reason For Visit No Information Reason For Referral Reason For Referral No Information History Of Present Illness Encounter Date Complaint History Of Prese nt Illness No Information Functional Status Date Functional Assessmen t No Information Instructions Date Instruction Additional Infor mation No Information Assessments Type Assessment Date No Information Patient Care Teams Name Effective Dates (start - stop) Status Members No Information
--- OUTSIDE RECORDS SUMMARY | 2017-07-25 05:00 | XMS_ITS | Continuity of Care Document ---
Author Organization [facility] Address [address] [place] [address] [address] [place] [address] Phone Care Team Providers Care Teacher Aide Clerical Name Role Phone Alexander PT,MPT,ATC, Aston Unavailable [...] Date Provider Providers Copied on Encounter [facility], [address] [address], [place], [place], [id number], [place] tel:[phone] [place] No Information 8 Munoz Aston. , [place], [place]. Referring Provider: Marissa harrison, [facility] [address], [place], [address]. tel:[phone] [facility], [address], [place], [place], [address], [place] tel:[phone] [place] No Information 8 Munoz A[place]. , [place], [place]. Referring Provider: Marissa harrison, [facility] [address], [place], [address]. tel:[phone] [facility] [address], [place], [place], [address], [place] tel:[phone] [place] No Information 8 Munoz [place]. , [place], [place]. Referring Provider: Marissa harrison, [facility] [address], [place], [address]. tel:[phone] [facility], [place], [place], [address], [place] tel:[phone] [place] No Information 8 Munoz [place]. , [place], [place]. Referring Provider: Marissa harrison, [facility] [address], [place], [address]. tel:[phone] [facility] [address], [place], [place], [address], [place] tel:[phone] [place] No Information 8 Munoz [place]. , [place], [place]. Referring Provider: Marissa harrison, [facility] [address], [place], [address]. tel:[phone] [facility] [address], [place], [place], [address], [place] tel:[phone] [place] No Information 8-201 8 Munoz A[place]. , [place], [place]. Referring Provider: Marissa harrison, [facility] [address], [place], [address]. tel:[phone] [facility] [address], [place], [place], [address], [place] tel:[phone] [place] No Information Nico-0 5-201 8 [facility] , [place], . Referring Provider: Marissa harrison, [address] [place] [address] [address], [place], [address]. tel:[phone] [facility] [address], [place], [place], [address], [place] tel:[phone] [place] No Information 0 2-201 8 [facility] , [place]. Referring Provider: Marissa harrison, [address] [place] [address] [address], [place], [facility]. tel:[phone] [facility] [address], [place], [place], [address], [place] tel:[phone] [place] No Information Dec-2 9-201 7 [facility] , [place]. Referring Provider: Marissa harrison, [address] [place] [address] [address], [place], [address]. tel:[phone] [facility] [address], [place], [place], [address], [place] tel:[phone] [place] No Information Dec-2 6-201 7 [facility] Referring Provider: Marissa harrison, [address] [place] [address] [address], [place], [address]. tel:[phone] [facility] [address], [place], [place], [address], [place] tel:[phone] [place] No Information Dec-2 0-201 7 [place]. , [place], [place]. Referring Provider: Marissa harrison, [facility] [address], [place], [address]. tel:[phone] [facility], [place], [place], [address], [place] tel:[phone] [place] No Information Dec-1 8-201 7 Munoz [place]. , [place], [place]. Referring Provider: Marissa harrison, [address] [place] [address] [address], [place], [facility]. tel:[phone] [facility], [address], [place], [place], [address], [place] tel:[phone] [place] No Information Dec-0 5-201 7 Munoz A[place]. , [place], [place]. Referring Provider: Marissa harrison, [address] [place] [address] [address], [place], [facility]. tel:[phone] [place] [address] [address] [facility] [address], [place], [place], [address], tel:[phone] [place] No Information Nov-3 0-201 7 Munoz A[place]. , [place], [place]. Referring Provider: Marissa harrison, [address] [place] [address] [address], [place], [facility]. tel:[phone] [place] [address] [address] [facility] [facility], [place], [place], [address], [place] tel:[phone] [place] No Information Nov-2 2-201 7 Munoz [place]. , [place], [place]. Referring Provider: Marissa harrison, [address] [place] [address] [address], [place], [facility]. tel:[phone] [place] [address] [address], [place], [place], [address], [place] tel:[phone] [place] No Information Nov-2 0-201 7 Munoz [place]. , [place], [place]. Referring Provider: Marissa harrison, [address] [place] [address] [address], [place], [address]. tel:[phone] [facility] [address], [place], [place], [address], [place] tel:[phone] [place] No Information Nov-1 6-201 7 Munoz [place]. , [place], [place]. Referring Provider: Marissa harrison, [facility] [address], [place], [address]. tel:[phone] [facility] [address], [place], [place], [address], [place] tel:[phone] [place] No Information Nov-1 4-201 7 [facility] [place]. Referring Provider: Marissa harrison, [address] [place] [address] [address], [place], [facility]. tel:[phone] [facility] [address], [place], [place], [address], [place] tel:[phone] [place] No Information Nov-0 9-201 7 [facility] Referring Provider: Marissa harrison, [address] [place] [address] [address], [place], [facility]. tel:[phone] [facility] [address] [facility], [place], [place], [address], [place] tel:[phone] [place] No Information Nov-0 7-201 7 [facility]. [place], [place]. Referring Provider: Marissa harrison, [address] [place] [address] [address], [place], [facility]. tel:[phone] [facility] [address] [facility] [facility], [place], [place], [address], [place] tel:[phone] [place] No Information Nov-0 3-201 7 Satinder Everett. . Referring Provider: Marissa harrison, [facility] [address], [place], [address]. tel:[phone] [facility] [address], [place], [place], [address], [place] tel:[phone] [place] No Information Nov-0 1-201 7 [facility] Referring Provider: Marissa harrison, [facility] [address], [place], [address]. tel:[phone] [facility] [address], [place], [place], [address], [place] tel:[phone] [place] No Information Mar-2 5-201 7 Munoz [place]. , [place]. Referring Provider: Marissa harrison, [facility] [address], [place], [address]. tel:[phone] [facility] [address], [place], [place], [address], [place] tel:[phone] [place] No Information Mar- 8-201 7 Mun[place]. , [place], [place]. Referring Provider: Marissa harrison, [facility] [address], [place], [facility]. tel:[phone] [facility] [address], [place], [place], [address], [place] tel:[phone] [place] No Information Mar- 6-201 7 Munoz [place]. , [place], [place]. Referring Provider: Marissa harrison, [facility] [address], [place], [address]. tel:[phone] [facility] [address], [place], [place], [address], [place] tel:[phone] [place] No Information Mar- 1-201 7 [place]. , [place], [place]. Referring Provider: Marissa harrison, [facility] [address], [place], [address]. tel:[phone] [facility] [address], [place], [place], [address], [place] tel:[phone] [place] No Information Mar-1 0-201 7 Munoz [place]. , [place], [place]. Referring Provider: Marissa harrison, [facility] [address], [place], [address]. tel:[phone] [facility] [address], [place], [place], [address], [place] tel:[phone] [place] No Information Oct-0 4-201 7 [place]. , [place]. Referring Provider: Marissa harrison, [address] [place] [address] [address], [place], [facility]. tel:[phone] [facility] [address], [place], [place], [address], [place] tel:[phone] [place] No Information Oct-0 2-201 7 [place]. , [place], [place]. Referring Provider: Marissa harrison, [address] [place] [address] [address], [place], [facility]. tel:[phone] [facility] [address] [place], [place] [address], [place], [place], [address], [place] tel:[phone] [place] No Information Sep-2 9-201 7 [facility] [place]. Referring Provider: Marissa harrison, [address] [place] [address] [address], [place], [facility]. tel:[phone] [place] [address] [place], [place] [address], [place], [place], [address], [place] tel:[phone] [place] No Information Sep-2 7-201 7 Satinder Everett. . Referring Provider: Marissa harrison, [address] [place] [address] [address], [place], [facility]. tel:[phone] [facility] [address], [place], [place], [address], [place] tel:[phone] [place] No Information Sep-2 0-201 7 [facility] , [place]. Referring Provider: Marissa harrison, [address] [place] [address] [address], [place], [facility]. tel:[phone] [facility], [place], [place], [address], [place] tel:[phone] [place] No Information Sep-2 0-201 7 Andrea Michelle. [address] [facility], [address], [place], [facility], . tel:[phone] Referring Provider: Marissa harrison, [address] [place] [address] [address], [place], [address]. tel:[phone] [facility] [address], [place], [place], [address], [place] tel:[phone] [place] No Information Sep- 7 Andrea Michelle. [address] [facility], [address], [place], [facility], [place]. tel:[phone] Referring Provider: Marissa harrison, [address] [place] [address] [address], [place], [facility]. tel:[phone] [facility] [address], [place], [place], [address], [place] tel:[phone] [place] No Information Feb- 7 [place], [place] Referring Provider: Marissa harrison, [address] [place] [address] [address], [place], [address]. tel:[phone] [facility] [address], [place], [place], [address], [place] tel:[phone] [place] No Information Feb- 7 [place] Referring Provider: Marissa harrison, [address] [place] [address] [address], [place], [address]. tel:[phone] [facility] [address], [place], [place], [address], [place] tel:[phone] [place] No Information Feb- 7 Andrea Michelle. [address] [facility], [address], [place], [facility], . tel:[phone] Referring Provider: Marissa harrison, [facility] [address], [place], [address]. tel:[phone] [facility] [address], [place], [place], [address], [place] tel:[phone] [place] No Information Sep-1 3-201 7 Andrea Michelle. [address] [facility], [address], [place], [facility], . tel:[phone] Referring Provider: Marissa harrison, [address] [place] [address] [address], [place], [facility]. tel:[phone] [address], [place], [place], [address], [place] tel:[phone] [place] No Information Sep-1 3-201 7 [facility] Referring Provider: Marissa harrison, [address] [place] [address] [address], [place], [facility]. tel:[phone] [place] [address] [place], [place] [address], [place], [place], [address], tel:[phone] [place] No Information Sep-0 8-201 7 [facility] Referring Provider: Marissa harrison, [address] [place] [address] [address], [place], [facility]. tel:[phone] [place], [place] [address], [place], [place], [address], [place] tel:[phone] [place] No Information Sep-0 8-201 7 Andrea Michelle. [address] [facility], [address], [place], [facility], . tel:[phone] Referring Provider: Marissa harrison, [address] [place] [address] [address], [place], [facility]. tel:[phone] [address], [place], [place], [address], [place] tel:[phone] [place] No Information Sep-0 7-201 7 [place]. [place], [place]. Referring Provider: Marissa harrison, [address] [place] [address] [address], [place], [facility]. tel:[phone] [facility] [address] [facility], [place], [place], [address], [place] tel:[phone] [place] No Information Feb-0 [facility] Referring Provider: Marissa harrison, [address], [place], [address]. tel:[phone] [facility] [address] [facility], [place], [place], [address], [place] tel:[phone] [place] No Information Feb-0 7 Andrea Michelle. [address] [place] [address], [address], [place], [facility], . tel:[phone] Referring Provider: Marissa harrison, [facility] [address], [place], [facility]. tel:[phone] [facility] [facility] [address], [place], [place], [address], [place] tel:[phone] [place] No Information Jan-2 7 [place] Fowler. [address] [place] [address], [address], [place], [facility], . tel:[phone] Referring Provider: Marissa harrison, [facility] [address], [place], [address]. tel:[phone] [facility] [address] [facility] [address], [place], [place], [address], [place] tel:[phone] [place] No Information Jan-2 [facility] Referring Provider: Marissa harrison, [address], [place], [address]. tel:[phone] [facility] [facility] [address], [place], [place], [address], [place] tel:[phone] [place] No Information Jan-2 Andrea Michelle. [address] [facility], [address], [place], [facility], . tel:[phone] Referring Provider: Marissa harrison, [address], [place], [address]. tel:[phone] [facility] [address], [place], [place], [address], [place] tel:[phone] [place] No Information 7 [place] Referring Provider: Marissa harrison, [facility] [address], [place], [facility]. tel:[phone] [facility] [address], [place], [place], [address], [place] tel:[phone] [place] No Information [place]. Referring Provider: Marissa harrison, [facility] [address], [place], [facility]. tel:[phone] [facility], [place], [place], [address], [place] tel:[phone] [place] No Information 7 Andrea Michelle. [address] [place] [address], [address], [place], [facility], . tel:[phone] Referring Provider: Marissa harrison, [facility] [address], [place], [facility]. tel:[phone] [facility] [address], [place], [place], [address], [place] tel:[phone] [place] No Information 7 Andrea Michelle. [address] [facility], [address], [place], [facility], . tel:[phone] Referring Provider: Marissa harrison, [address], [place], [address]. tel:[phone] [facility], [place], [place], [address], [place] tel:[phone] [place] No Information [place]. Referring Provider: Marissa harrison, [address] [place] [address] [address], [place], [address]. tel:[phone] [facility] [address], [place], [place], [address], [place] tel:[phone] [place] No Information Andrea Michelle. [address] [facility], [address], [place], [facility], [place]. tel:[phone] Referring Provider: Marissa harrison [address] [place] [address] [address], [place], [facility]. tel:[phone] [facility] [address], [place], [place], [address], tel:[phone] [place] Unsteadiness on feetOther specified postprocedura l statesCervica lgiaOth symptoms and signs involving the musculoskelet al systemPain in right leg [place]. Referring Provider: Marissa harrison, [address] [place] [address] [address], [place], [address]. tel:[phone] [facility], [id number], [place] tel:[phone] [place] No Information [place]. Referring Provider: Marissa harrison [address] [place] [address] [address], [place], [address]. tel:[phone] [facility] [facility] [address], [place], [place], [address], [place] tel:[phone] [place] Paresthesia of skinMuscle weakness (generalized) Unspecified lack of coordinationO ther specified health statusOther reduced mobilityColla psed vertebra, NEC, site unsp, subs for fx w routn heal Hauschiandrew Michelle. [address] [facility], [address], [place], [address], [place]. tel:[phone] Referring Provider: Luann Lozano [facility] [address] [facility] [address], [place], [address]. tel:[phone] Family History Family Member Type Diagnosis Age At Onset No Information Payers Payer name Insurance type Covered constitution party ID Authoriza tion(s) No Information Social History [...]
--- OUTSIDE RECORDS SUMMARY | 2022-09-14 05:30 | XMS_ITS | Continuity of Care Document ---
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 Name Role Phone Christy Beavers MD Unavailable Unavailable Allergies, Adverse Reactions, Alerts Substance Reaction Status Criticality No Known Allergies Active No Inform ation Medications Medication Instructions Dosage Effective Dates (start - stop) Status Comments sumatriptan 100 mg tablet take 1 tablet by oral route after onset of migraine; may repeat after 2 hours if headache returns,not to exceed 200mg in 24hrs 100 MG - Active armodafinil 250 mg tablet take 1 tablet by oral route every day in the morning 250 MG - Active diclofenac 1 % topical gel apply (2G) by topical route 3 times every day to the affected area(s) 2 G - Active gabapentin 800 mg tablet take 1 tablet by oral route 3 times every day 800 MG - Active lisinopril 20 mg-hydrochlorothiazi de 12.5 mg tablet take 1 tablet by oral route every day 1.00 tablet - Active oxycodone-acetaminop hen 10 mg-325 mg tablet take 1 tablet by oral route every 6 hours as needed 1.00 tablet - Active Tirosint 125 mcg capsule take 1 capsule by oral route every day 125 MCG - Active Trokendi XR 100 mg capsule, extended release take 1 capsule by oral route every day 100 MG - Active Procedures Procedure Date X-RAY EXAM OF KNEE, A/P & LAT 3 KENALOG 10 MG ASP/INJ MAJOR JOINTOR BURSA, SHOULDER, H IP,KNEE W/O US GUIDANCE OFFICE [id number] X-RAY EXAM OF KNEE, A/P & LAT 0 POSTOPERATIVE FOLLOW-UP VISIT, INCLUDED IN [facility] POSTOPERATIVE FOLLOW-UP VISIT, INCLUDED IN [facility] ARTHROPLASTY, KNEE, CONDYLE AND PLATEAU; MEDIAL OR LATERAL COMP POSTOPERATIVE FOLLOW-UP VISIT, INCLUDED IN [facility] POSTOPERATIVE FOLLOW-UP VISIT, INCLUDED IN [facility] X-RAY EXAM OF KNEE, A/P & LAT 0 X-RAY EXAM OF KNEE, A/P & LAT 0 POSTOPERATIVE FOLLOW-UP VISIT, INCLUDED IN [facility] POSTOPERATIVE FOLLOW-UP VISIT, INCLUDED IN [facility] ARTHROPLASTY, KNEE, CONDYLE AND PLATEAU; MEDIAL OR LATERAL COMP POSTOPERATIVE FOLLOW-UP VISIT, INCLUDED IN [facility] OFFICE [id number] REPAIR ROTATOR CUFF, CHRONIC REMOVE SHOULDER BONE, PART X-RAY EXAM OF KNEE, A/P & LAT 9 Xray Exam, Hip, Unilat, Two Or Three Vie ws OFFICE [id number] KENALOG 10 MG ASP/INJ MAJOR JOINTOR BURSA, SHOULDER, H IP,KNEE W/O US GUIDANCE Advance Directives Directive Yes / No Effective Date File Name No Information Encounters Encounter Description Practice Location Reason(s) For Visit Diagnoses Date Provider Providers Copied on Encounter OFFICE [id number] ANDED [facility], [address], [place], [place], [address], [place] tel:[phone] [facility] knee (chief complaint) Primary osteoarthritis of left knee [address]. [address], [place], [place], [address] , [place]. tel: [phone] Referring Provider: Kamran [address], [place], [address] . tel:[phone] [facility], [address], [place], [place], [address], tel:[phone] [facility] S/P left unicompartmental knee replacement [facility]. [address], [place], [place], [address] , [place]. tel:[phone] [facility], [address], [place], [place], [address], [place] tel:[phone] [facility] LEFT KNEE (chief complaint) Status post left unicompartmental knee replacement [facility]. [address], [place], [place], [address] , [place]. tel:[phone] Referring Provider: Christy Beavers, [address] [facility] [address], [place], [address] . tel:[phone] [facility] [address], [place], [place], [address], [place] tel:[phone] [facility] No Information [facility]. [address], [place], [place], [address] , [place]. tel:[phone] Referring Provider: Kamran Mal[address] [facility] [address], [place], [address] . tel:[phone] [facility], [address], [place], [place], [address], [place] tel:[phone] [facility] Status post unicompartmental knee replacement, right [facility]. [address], [place], [place], [address] , [place]. tel:[phone] [facility], [address], [place], [place], [address], [place] tel:[phone] [facility] RIGHT KNEE (chief complaint) Primary osteoarthritis of both knees [facility]. [address], [place], [place], [address] , [place]. tel:[phone] Referring Provider: Kamran [address], [place], [address] . tel:[phone] [facility], [address], [place], [place], [address], tel:[phone] [facility] Right Knee (chief complaint) Status post right unicompartmental knee replacement 0 [facility]. [address], [place], [place], [address] , [place]. tel:[phone] Referring Provider: Christy Beavers, [address], [place], [address] . tel:[phone] [facility], [address], [place], [place], [address], tel:[phone] [facility] No Information [address] [place] [address]. [address], [place], [place], [address] , [place]. tel:[phone] Referring Provider: Christy Beavers, [address], [place], [address] . tel:[phone] OFFICE [id number] ANDED [facility], [address], [place], [place], [address], tel:[phone] [facility] SHOULDER (chief complaint)k nee (chief complaint) S/P rotator cuff repairPrimary osteoarthritis of left knee [address] [place] [address]. [address], [place], [place], [address] , [place]. tel:[phone] Referring Provider: Kamran [address], [place], [address] . tel:[phone] [facility] [address], [place], [place], [address], tel:[phone] [facility] No Information [address] [place] [address]. [address], [place], [place], [address] , [place]. tel:[phone] Referring Provider: Kamran [address], [place], [address] . tel:[phone] OFFICE [id number] [facility], [address], [place], [place], [address], [place] tel:[phone] [facility] Right Shoulder (chief complaint)R ight Hip (chief complaint)B ilateral Knees (chief complaint) Nontraumatic incomplete tear of right rotator cuffChronic right-sided low back pain without sciaticaPrimary osteoarthritis of both kneesImpingement syndrome of right shoulder [address]. [address], [place], [place], [address] , . tel:[phone] Referring Provider: [address], [place], [address] . 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 Percentile Wt./Maulik. Percentile BMI percentile Pulse Ox Inhaled Ox 9:49 AM 68.00 in 99.790 kg (220.00 lbs) 33.4 5 kg/m eter (2) Chief Complaint And Reason For Visit From encounter dated '09/14/2022 10:30'. knee (chief complaint). Description: hx right and left uni knees and with some left knee pain fromlateral djd plan inj given left knee fu as needed Reason For Referral Reason For Referral No Information Plan Of Treatment Date Type Action Status Referral Ordered: X-RAY EXAM OF KNEE, ONE OR TWO VIEWS Left Left ordered Referral Ordered: Doppler ultrasound of left lower extremity for venous thromboembolism Left leg ordered Referral Referred To: Physical Therapy Ordered: Referrals: Physical Therapy. Location: [place] [phone]. Evaluate and treat - Level 2 ordered Referral Referred To: Physical Therapy [address] [place], [phone] Ordered: Referrals: Physical Therapy. Location: [place] [phone]. Evaluate and treat - Level 2 ordered Referral Referred To: Home Care [address] [place], [place], [phone] Ordered: Referrals: Home Care. Location: [facility]. Evaluate and treat - Level 2 ordered Referral Referred To: [address] [place], [place], [phone] Ordered: X-RAY EXAM OF KNEE, ONE OR TWO VIEWS Right ordered Referral Referred To: [facility] [address], [place], [phone] Ordered: Referrals: Physical Therapy. [facility]. Evaluate and treat - Level 2 ordered Referral Referred To: [facility] [address], [place], [phone] Ordered: Referrals: Physical Therapy. [facility]. Location: [place] [phone]. Evaluate and treat - Level 2 ordered Referral Ordered: Xray Exam, Hip, Unilat, Two Or Three Views Right ordered Referral Ordered: X-RAY EXAM OF KNEE, ONE OR TWO VIEWS Bilateral ordered Future Order: Radiology Order X- RAY EXAM OF KNEE, ONE OR TWO VIEWS Right ([id number]), Sent on: Sent History Of Present Illness Encounter Date Complaint History Of Prese nt Illness knee hx right and lef t uni knees and with some left knee pain from lateral djd plan inj given left knee fu as needed LEFT KNEE First post-op le ft UNI knee and doing very well without problems. X- rays - good position and fixation. Continue home exercises and begin outpatient physical therapy. F/U in four weeks. RIGHT KNEE 6 weeks post-op right medial UNI knee and feeling great and progressing well and ready to talk about planned left medial UNI knee. Left knee with daily 6/10 sharp stabbing pain limiting ability to stand, walk, climb and stoop. Plan - continue exercises and full activity right knee. Left UNI knee when COVID-19 over. Right Knee First post-op ri ght UNI knee and doing very well without problems. X-rays obtained - good position and fixation. Plan - continue home exercises and therapy F/U 4 weeks SHOULDER postop right rc and doing very well without problems plan continue home exercises ok begin phy therapy fu 3 weeks knee Ivory Arias is a 58 year old female. 5 years of progressive sharp stabbing left med knee pain 7/10 daily constant and no longer helped by nsaids and therapy and injections and limiting ability to walk climb drive stoop exercise and with fear of falling and ready to proceed with left med uni knee replacement PATIENT SCHEDULED FOR L UKR 08-31-19. Right Shoulder 6 months of righ t shoulder pain 7/10, weakness, loss of motion and waking at night. Pain not relieved by NSAIDs, injection or physician directed home exercises or physical therapy. MRI obtained and reviewed - right RC tear supraspinatus with AC joint impingement - reviewed findings and treatment options. Plan is surgical treatment.PATIENT SCHEDULED FOR SX OF R R/C & AA 06-29-19 PRE & POST OP INSTRUCTIONS GIVEN Right Hip Two years of int ermittent low back pain with radiation to right hip. Aching pain 2/10. X-rays hips negative. Plan is non-operative treatment. Physician directed home exercises and followup as needed. Bilateral Knees 10 years of prog ressive sharp stabbing knee pain 7/10 daily worse with standing and activity and with only minimal relief from NSAIDs. X-rays obtained. Plan - injection given today with plan surgery of left and right 2019 Functional Status Date Functional Assessmen t No Information Instructions Date Instruction Additional Infor celina uni knee doing well inj given for lateral djd Related to Primary osteoarthritis of left knee Disease process Continue home exerci ses and therapy F/U 4 weeks Related to Status post left unicompartmental knee replacement Disease process Right UNI knee doing well Continue exercises Plan - left uni knee The patient has clinical and radiographic evidence of degenerative joint disease of the knee. It is causing pain, limp and dysfunction including but not limited to an inability to walk, climb stairs, travel and perform hygiene and activities of daily living. The disease has not responded to conservative measures including but not limited to rest, ice/heat, NSAIDs, exercise therapy and intra-articular injections. The patient was given an explanation of the natural history of the disease. The patient was given a review of the treatment options including continued non-surgical treatment versus surgical treatment. The patient understands the indications, risks and potential complications of each treatment option and having failed conservative treatment now wishes to proceed with surgical uni knee replacement. I concur. Related to Primary osteoarthritis of both knees Disease process Doing well Continue home exercise and therapy F/U 4 weeks and consider scheduling left knee Related to Status post right unicompartmental knee replacement Disease process plan left med uni kn ee replacement The patient has clinical and radiographic evidence of degenerative joint disease of the knee. It is causing pain, limp and dysfunction including but not limited to an inability to walk, climb stairs, travel and perform hygiene and activities of daily living. The disease has not responded to conservative measures including but not limited to rest, ice/heat, NSAIDs, exercise therapy and intra-articluar injections. The patient was given an explanation of the natural history of the disease. The patient was given a review of the treatment options including continued non-surgical treatment versus surgical treatment. The patient understands the indications, risks and potential complications of each treatment option and having failed conservative treament now wishes to proceed with surgical uni knee replacement. I concur. Related to Primary osteoarthritis of left knee continue home exerci ses ok begin therapy fu 3 weeks Related to S/P rotator cuff repair Disease process Surgical correction at the time of rotator cuff repair. Related to Impingement syndrome of right shoulder Reviewed options Javed n - surgical repair right RC tear Related to Nontraumatic incomplete tear of right rotator cuff Reviewed findings - injection given both knees Anticipate surgery 2019 left and right Related to Primary osteoarthritis of both knees Physician directed h ome exercises and full activity Related to Chronic right-sided low back pain without sciatica Disease process Assessments Type Assessment Date assessment Primary osteoarthritis of left k nee Patient Care Teams Name Effective Dates (start - stop) Status Members No Information
[2025-02-16] VITALS (8 sets, daily range): BP systolic 92–182; BP diastolic 64–128; PULSE 53–96; RESP 12–17; TEMP 36.5–36.7; O2SAT 94–100
--- NOTE | ~2025-02-16 | CT_ITS ---
EXAMINATION: CTA chest PE protocol DATE: 02/16/2025 10:59 CDT INDICATION: Chest pain. History of DVT. TECHNIQUE: Computed tomographic angiography (CTA) of the chest was performed with 100 mL Omnipaque-350 intravenous contrast. The dose-length product was 405.17 mGy-cm. Maximum intensity projection 3D-reconstructions of the aorta and other arteries were constructed by the technologist on a separate workstation. COMPARISON: CT dated 10/20/2024 FINDINGS: Mild atherosclerosis. No evidence for aortic aneurysm. No thoracic lymphadenopathy. No significant pleural or pericardial effusion. There are gallstones. Small hiatal hernia. Study is technically adequate without evidence for pulmonary embolism. Chronic elevation of the right diaphragm. There is dependent atelectasis. There is focal chronic pleural thickening/scarring left lower lobe. No endobronchial lesion. No pneumothorax. Mild thoracic spondylosis. IMPRESSION: 1. No acute cardiopulmonary disease. No evidence for pulmonary embolism. Reviewed, dictated and finalized at location O.
--- NOTE | 2025-02-16 09:58 | ECG_ITS ---
Test Date: 2025-02-16 10:04:51 Measurements Intervals Page Rate: 73 P: 22 MD: 151 QRS: -44 QRSD: 90 T: 0 QT: 367 QTc: 407 Interpretive Statements SINUS RHYTHM LEFT AXIS DEVIATION LEFT VENTRICULAR HYPERTROPHY WITH ST-T CHANGE POOR R WAVE PROGRESSION BORDERLINE ST-T WAVE ABNORMALITY- ANTEROLAT/INF LEADS BASELINE ARTIFACT- I, II, III, AVR, AVL, AVF, V1-V6 BORDERLINE ECG Compared to ECG 10/21/2024 00:39:21 HEART RATE HAS INCREASED Electronically Signed On 02-16-2025 10:35:26 CDT by Kobi Cope D.O.
--- OUTSIDE RECORDS SUMMARY | 2025-02-16 09:58 | XMS_ITS | Patient Health Record ---
Author Organization [facility] Address [address] [place] [address] [place] [address] Care Team Providers Care Coffee Host Name Role Phone CRISTINA MEJÍA, YOSEPH Primary Care Provider Ming Murdock Unavailable [phone] ALLERGIES Allergen (clinical drug ingredient) Drug/Non Drug [...] Active Armodafinil 250 MG Orally A ctive PROBLEMS Problem Type ICD Code Onset Dates Problem Status W/U Status Risk SNOMED Code Notes Problem Migraine with aura, intractable, without status migrainosus (G43.119) Active confirmed Refractory migraine with aura (675987674) Problem Unspecified mononeuropathy of unspecified lower limb (G57.90) Active confirmed Mononeuropathy of lower limb (144168370) Problem Unilateral primary osteoarthritis, left knee (M17.12) Active confirmed Osteoarthritis of knee (082649414) Problem Osteoarthritis of knee, unspecified (M17.9) Active confirmed Osteoarthritis of knee (835617188) Bilateral Problem Primary osteoarthritis, 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) Active confirmed Localized, primary osteoarthritis of the shoulder region (894761036) Problem Pain in left knee (M25.562) Active confirmed Pain of left knee joint (finding) (713710743944498 ) Problem Spinal enthesopathy, site unspecified (M46.00) Active confirmed Spinal enthesopathy (33741699) Problem Sacroiliitis, not elsewhere classified (M46.1) Active confirmed Solitary sacroiliitis (317323866) Problem Spondylosis without myelopathy or radiculopathy, cervical region (M47.812) Active confirmed Cervical spondylosis without myelopathy (090495211) Problem Spondylosis without myelopathy or radiculopathy, cervicothoracic region (M47.813) Active confirmed Cervical spondylosis without myelopathy (915657882) Problem Spondylosis without myelopathy or radiculopathy, lumbar region (M47.816) Active confirmed Lumbosacral spondylosis without myelopathy (67656309) Problem Spondylosis without myelopathy or radiculopathy, lumbosacral region (M47.817) Active confirmed Lumbosacral spondylosis without myelopathy (disorder) (99813184) Problem Other intervertebral disc displacement, lumbar region (M51.26) Active confirmed Displacement of lumbar intervertebral disc without myelopathy (59249801) Problem Other intervertebral disc degeneration, lumbar region (M51.36) Active confirmed Degeneration of lumbar intervertebral disc (09530875) Problem Radiculopathy, cervical region (M54.12) Active confirmed Cervical radiculopathy (55657072) Problem Radiculopathy, lumbar region (M54.16) Active confirmed Lumbar radiculopathy (418517706) Problem Radiculopathy, lumbosacral region (M54.17) Active confirmed Lumbosacral radiculopathy (5768097) Problem Unspecified rotator cuff tear or rupture of right shoulder, not specified as traumatic (M75.101) Active confirmed Rupture of righ t rotator cuff (319306599310086 03) Problem Postlaminectomy syndrome, not elsewhere classified (M96.1) Active confirmed Post-laminectom y syndrome (83353785) Problem Osseous stenosis of neural canal of lumbar region (M99.33) Active confirmed Spinal stenosis of lumbar region (12917176) Problem shelter (current) use of anticoagulants (Z79.01) Active confirmed Long-term current use of anticoagulant (898980758) Problem 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 of 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 (Z79.891) Active confirmed High risk drug monitoring status (146986148) Problem Other prison (current) drug therapy (Z79.899) Active confirmed Long-term current use of drug therapy (203739273) Problem Myalgia of auxiliary muscles, head and neck (M79.12) Active confirmed PLAN OF TREATMENT Pending Test Test Name Order Date MRI : Shoulder, right 12/12/2018 Chem 7 (BUN, Cr, Lytes, Glu) 09/10/2022 MRI : Lumbar Spine with and without Cont rast (56793) 07/15/2022 MRI : Lumbar Spine with and without Cont rast (52422) 2020 XRAY right shoulder 06/30/2021 [facility] Results 04/06/2022 [facility] Results 06/04/2022 [facility] Results 08/23/2022 XRAY : Shoulder LEFT 08/12/2022 Insurance Providers Payer Name Payer Address Payer Phone Subscriber Number Group Number Insured Name Patient Relationship to Insured Coverage Start Date Coverage End Date [facility] [address] [place] [address] [id number] WINDY SIMON Self - patient is the insured MEDICAL (GENERAL) HISTORY Medical History History ICD Code Hypertension Hypothyroidism Degenerative joint disease DVT Surgical History Surgery Date(Month/Year) Left knee arthroscopy 2010 Bilateral foot surgery 1969 Lumpectomy-Left Breast/Chest Wall Right Knee Replacement 08/31/2019 Left Knee Surgery (unknown procedure)
--- OUTSIDE RECORDS SUMMARY | 2025-02-16 09:58 | XMS_ITS | Clinical Summary ---
Author Organization [facility] Address [address] [place] [address] Care Team Providers Care Coal Bagger Name Role Phone Marissa Farr MD Unavailable [phone] Luis Gardner NP Primary Care Provider [phone] Allergies Active Allergy Reactions Criticality Noted Date Comments Melon Anaphylaxis High 02/07/2017 Medications cyanocobalamin/fol ic acid (vitamin D48-jcvoz acid) 1,000-400 mcg lozengeIndications :B12 deficiency Place under the tongue daily Active calcium carb/D3/magnesium/ zinc (calcium carb-D3-mag tep85-kwah) [phone] ac-mujl-gr-mg tabletIndications: Vitamin D deficiency Take 3 tablets by mouth daily Active Xarelto 20 mg tabletIndications: Hx of [...] Active Additional Information Patient not taking.Reported on 10/22/2024 levothyroxine (SYNTHROID) 137 mcg tabletIndications: Acquired hypothyroidism Take 1 tablet (137 mcg total) by mouth daily 90 tablet 1 05/29/20 24 025 Active benzonatate (TESSALON) 100 mg capsuleIndications :Cough Take 1 capsule (100 mg total) by mouth 3 (three) times a day as needed for cough 42 capsule 06/25/20 24 Active Additional Information Patient not taking.Reported on 10/22/2024 zolpidem CR (AMBIEN CR) 6.25 mg CR [...] mouth daily 30 tablet 09/21/19 25 Active lisinopril-hydroCH LOROthiazide (ZESTORETIC) 20-25 mg per tabletIndications: Hypertension, essential Take 1 tablet by mouth daily 90 tablet 1 12/13/19 25 025 Active omeprazole (PriLOSEC) 20 mg capsuleIndications :Gastroesophageal reflux disease, unspecified whether esophagitis present Take 1 capsule (20 mg total) by mouth 2 (two) times a day 180 capsule 1 12/13/19 25 025 Active escitalopram (LEXAPRO) 10 mg tabletIndications: Depression, major, single episode, moderate (HCC) Take 1 tablet by mouth once daily 60 tablet 01/01/20 25 Active Active Problems Problem Noted Date Diagnosed Date Colon cancer screening 05/29/2024 Assessment & Plan (05/29/2024 12:05 PM SANDING MACHINE TENDER): GI referral placed. Skin cancer screening 05/29/2024 Assessment & Plan (05/29/2024 12:06 PM SANDING MACHINE TENDER): Referral placed to dermatology due to history of skin cancer in family, and not being seen in a while. BMI 32.0-32.9,adult 05/29/2024 Assessment & Plan (09/20/2024 12:01 PM CDT): Weight appropriate for patient. Assessment & Plan (05/29/2024 12:06 PM SANDING MACHINE TENDER): Weight appropriate for patient. History of colonic polyps 05/29/2024 Encounter for screening colonoscopy 05/29/2024 Chronic migraine with aura w ithout status migrainosus, not intractable 03/14/2024 Assessment & Plan (05/29/2024 12:04 PM SANDING MACHINE TENDER): Migraines not well. Still awaiting to get [...] 02/25 Assessment & Plan (05/29/2024 12:04 PM SANDING MACHINE TENDER): Refilled Lexapro. Moods stable and will continue [...] 03/14/2024 Assessment & Plan (05/29/2024 12:04 PM SANDING MACHINE TENDER): Refilled Synthroid. Euthyroid. Will continue to monitor. [...] 03/14/2024 Assessment & Plan (05/29/2024 12:05 PM SANDING MACHINE TENDER): Sleep is improved with Zolpidem will continue [...] Encounters Date Type Department Care Team Description 11/29/2024 Telephone [facility] [address] [place] [id number] Luis Gardner NP 11/26/2024 Orders Only [facility] [address] [place] [phone] Luis Gardner NP Depression, major, single episode, moderate (HCC) (Primary Dx) from Last 3 Months Immunizations Immunization Administration [...] replacement BREAST BIOPSY Left excisional bx benign COLONOSCOPY ROTATOR CUFF REPAIR Right TUBAL LIGATION TONSILECTOMY, ADENOIDECTOMY, BILATERAL MYRINGOTOMY AND TUBES Bilateral Medical History Medical History Date Comments Vitamin D deficiency DJD (degenerative joint disease) of knee 013 Adenomatous colon polyp HTN (hypertension) HLD (hyperlipidemia) Low bone mass Hypothyroid GERD (gastroesophageal reflux disease) DVT (deep venous thrombosis) ITALO (generalized anxiety disorder) MDD (major depressive disorder) Vitamin B 12 deficiency Obesity Migraines DDD (degenerative disc disease), lumbar Family History Medical History Relation Name Comments [...] Tobacco: Never Tobacco Cessation:Counseling Given: Not Answered [facility] Answer Date Recorded In the past [address] [facility] [employer], oil, or water [employer] threatened to shut off services in your [...] or ex-partner? No 08/08/2024 Social Connection and Isolation Panel Answer Date Recorded In a typical week, how many times do you talk on the phone with family, friends, or neighbors? More than three times a week 08/08/2024 How often do you get togethe r with friends or relatives? Once a week 08/08/2024 How often do you attend [facility] or jewish services? More than 4 times per year 08/08/2024 Do you belong to any clubs o r organizations such as mu-ism groups, unions, fraternal or athletic groups, or [...] staff should administer the PHQ-9) 1 09/20/2024 [facility] - Occup[facility] Stress [...] any time in the past 12 m [facility], were you homeless or living in a penitentiary (including now)? No 08/08/2024 Comments No Sex [...] Sign Reading Time Taken Comments Blood Pressure 120/83 10/22/2024 3:13 PM CDT Pulse 73 10/22/2024 3:13 PM CDT Temperature 36.7 C (98.1 F) 10/20/2024 5:29 PM CDT Respiratory Rate 16 10/22/2024 3:13 PM CDT Oxygen Saturation 97% 10/20/2024 5:29 PM CDT Inhaled Oxygen Concentration - - Weight 95.7 kg (211 lb) 10/22/2024 3:13 PM CDT Height 168.9 cm (5' 6.5) 10/22/2024 3:13 PM CDT Body Mass Index 33.55 10/22/2024 3:13 PM CDT Plan of Treatment Health Maintenance Due Date Last Done Comments Colon Cancer Screening-Colonoscopy 1959 Fall Risk Assessment 1960 Osteoporosis Screening-Bone Density Scan 1960 DTaP/Tdap/Td Vaccine (1 - Tdap) 10/28/1970 Pneumococcal vaccine 65+ (1 of 1 - PCV) 10/28/2009 Zoster Vaccine (2 of 2) 04/22/2020 02/26/2020 Well Visit 65+ 10/28/2024 Influenza Vaccine (#1) 2025 , 02/26/2020, 03/16/2019 Breast Cancer Screening-Mammogram 08/09/2025 025 Depression Screening 09/20/2025 09/20/2024, 08/08/2024, 05/29/2024, Additional history exists Hepatitis B Screening Completed 03/14/2024 Hepatitis C Screening Completed 03/14/2024 Procedures Procedure Name Priority Date/Time Associated Diagnosis Comments SCREENING MAMMOGRAM BILATERAL W HOMERO Schedule Routine, Read Routine (OP Routine) 08/09/2024 8:12 AM SANDING MACHINE TENDER Screening mammogram for breast cancer HEPATITIS C ANTIBODY Routine 03/14/2024 10:54 AM CDT Encounter for hepatitis C screening test for low risk patient from Last 3 Months or Most Recently Relevant to Health Maintenance Results * Screening Mammogram Bilateral W Homero (08/09/2024 8:12 AM SANDING MACHINE TENDER) Anatomical Region Laterality Modality Breast Bilateral Mammography 08/24/2024 8:07 AM SANDING MACHINE TENDER Impressions 08/24/2024 8:07 AM SANDING MACHINE TENDER There is no mammographic evidence of malignancy. A 1 year screening mammogram is recommended. BI-RADS: 1 - Negative. The patient has been or will be contacted. The patient will be entered into a reminder system with a target due date of 1 year for her next mammogram. Electronically signed by: Laury Pal M.D. Narrative 08/24/2024 8:07 AM SANDING MACHINE TENDER EXAMINATION: SCREENING MAMMOGRAM BILATERAL W HOMERO ORDERING [...] There has been no suspicious interval change. Luis Gardner NP IMG MAMMO PROCEDURES Final [...] last revised on 2019. Testing performed by: [facility], [address] [place] [address]., [id number] Blood 03/14/2024 10:5 4 AM CDT 03/14/2024 7:41 PM CDT Luis Gardner NP LAB MICROBIOLOGY - GENERAL ORDER RAVINDRA Final Result [facility]) [facility] Department [place] [address] from Last 3 Months or Most Recently Relevant to Health Maintenance Insurance [facility] Care Teams Coal Bagger Relationship Specialty Start Date End Date Luis Gardner NP [address] [place] [address] PCP - General Family Medicine 03/14/24 Marissa Farr MD [address] [address] 12/31/16
--- OUTSIDE RECORDS SUMMARY | 2025-02-16 09:58 | XMS_ITS | Encounter Summary ---
Author Organization [facility] Healthcare Address [address] [place] [address] Care Team Providers Care Patient Support Associate Name Role Phone Marissa Farr MD Unavailable [phone] Yesenia Gardner NP Primary Care Provider Reason for Visit * Auth/Cert (Routine) Specialty Diagnoses / Procedures Referred By Oscar schrader Referred To Contact Diagnoses History of colonic polyps Encounter for screening colonoscopy History of colonic polyps [Z86.0100] Encounter for screening colonoscopy [Z12.11] Procedures [place] COLONOSCOPY FLX DX W/COLLJ SPEC WHEN PFRMD COLONOSCOPY Referral ID Status Reason Start Date Expiration Date Visits Re quested Visits Authorized [id number] 1 1 Encounter Details Date Type Department Care Team (Late st Contact Info) Description 11/14/2024 Hospital Encounter [facility] [address] [place] [address] Spike Newberry, DO [address] [address] Social History Tobacco Use Types Packs/Day Years Used Date Smoking Tobacco: Never Smokeless Tobacco: Never [facility] Utilities Answer Date Recorded In the past 12 months has e electric, gas, oil, or water company threatened to shut off services in your [...] you attend [facility] or synagogue services? More than 4 times per year 08/08/2024 Do you belong to any clubs o r organizations such as nondenominational groups, unions, fraternal or athletic groups, or [...] staff should administer the PHQ-9) 1 09/20/2024 [facility] Occupat ional Health - Occupational Stress [...] any time in the past 12 m [facility], were you homeless or living in a detention (including now)? 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 Never 08/08/2024 10:53 AM Viviana Cardenas LCSW Q2: How many drinks containing alcohol do you have on a typical day when you are drinking? Patient does not drink 08/08/2024 10:53 AM Viviana Cardenas LCSW Q3: How often do you have six or more drinks on one occasion? Never 08/08/2024 10:53 AM Viviana Cardenas LCSW documented as of this encounter Plan of Treatment Not on file documented as of this encounter Visit Diagnoses Diagnosis History of colonic polyps Personal history of colonic polyps Encounter for screening colonoscopy documented in this encounter Admitting Diagnoses Diagnosis History of colonic polyps Personal history of colonic polyps Encounter for screening colonoscopy documented in this encounter Care Teams Patient Support Associate Relationship Specialty Start Date End Date Yesenia Gardner NP [address] [place] [address] PCP - General Family Medicine 03/14/24 Marissa Farr MD [address] [facility] [address] [place] [address] 12/31/16 documented as of this encounter
[2025-02-16] MEDS: ASPIRIN 81 MG CHEWABLE TABLET 324 MG PO (10:08)
[2025-02-16 10:14] LABS: Hematocrit 48.2 % (37.0-47.0); Hemoglobin 15.2 g/dL (12.0-15.0); Immature Granulocyte Percent A 0.3 % (0-0.5); Lymphocytes Absolute Auto 1.63 K/mm3 (0.9-3.2); Mean Corpuscular HGB Conc 31.5 g/dl (32-36); Mean Corpuscular Hemoglobin 26.3 pg (26-34); Mean Corpuscular Volume 83.4 fl (80-100); Nucleated Red Blood Cells Absolute Auto 0.000 K/mm3 (0.0-0.012); Nucleated Red Blood Cells Perc 0.0 % (0.0-0.2); Platelet Count Result 336 k/mm3 (150-375); Red Blood Count 5.78 M/mm3 (4.2-5.4); White Blood Count 5.8 K/mm3 (4.5-10.0)
[2025-02-16] MEDS: NITROGLYCERIN SL 0.4 MG TABLET SUBLINGUAL (10:18)
[2025-02-16 10:24] LABS: INR 1.1; Prothrombin Time 13.9 Seconds (11.1-14.7)
[2025-02-16 10:25] LABS: Partial Thromboplastin Time 28.8 Seconds (22.3-36.8)
[2025-02-16 10:29] LABS: Alanine Aminotransferase 18 U/L (6-35); Albumin Level 4.3 g/dL (3.5-5.1); Alkaline Phosphatase 62 U/L (38-126); Anion Gap 8 mmol/L (4-12); Aspartate Amino Transferase 26 U/L (14-36); Bilirubin,Total 1.3 mg/dL (0.2-1.3); Blood Urea Nitrogen 12 mg/dL (7-17); Calcium 9.5 mg/dL (8.4-10.2); Carbon Dioxide 23 mmol/L (22-30); Chloride 108 mmol/L (98-107); Estimated CRCL calculation 66 ml/min; Estimated Glomerular Filt Rate > 60; Glucose 93 mg/dL (65-110); Lipase 228 U/L (23-300); Potassium 3.8 mmol/L (3.4-5.0); Sodium 139 mmol/L (137-145); Total Protein 7.7 g/dL (6.3-8.2)
--- OUTSIDE RECORDS SUMMARY | 2025-02-16 10:29 | XMS_ITS | Clinical Summary ---
Author Organization [facility] Address [address] [place] [address] Care Team Providers Care Food Service Tray Attendant Name Role Phone Marissa Farr MD Unavailable [phone] Luis Gardner NP Primary Care Provider [phone] Allergies Active Allergy Reactions Criticality Noted Date Comments Melon Anaphylaxis High 02/07/2017 Medications cyanocobalamin/fol ic acid (vitamin V79-osmta acid) 1,000-400 mcg lozengeIndications :B12 deficiency Place under the tongue daily Active calcium carb/D3/magnesium/ zinc (calcium carb-D3-mag [id number]) [phone] po-wywn-da-mg tabletIndications: Vitamin D deficiency Take 3 tablets [...] 05/29/2024 Assessment & Plan (05/29/2024 12:05 PM TOOL REPAIRER BENCH): GI referral placed. Skin cancer screening 05/29/2024 Assessment & Plan (05/29/2024 12:06 PM TOOL REPAIRER BENCH): Referral placed to dermatology due to history of skin cancer in family, and not being seen in a while. BMI 32.0-32.9,adult 05/29/2024 Assessment & Plan (09/20/2024 12:01 PM CDT): Weight appropriate for patient. Assessment & Plan (05/29/2024 12:06 PM TOOL REPAIRER BENCH): Weight appropriate for patient. History of colonic polyps 05/29/2024 Encounter for screening colonoscopy 05/29/2024 Chronic migraine with aura w ithout status migrainosus, not intractable 03/14/2024 Assessment & Plan (05/29/2024 12:04 PM TOOL REPAIRER BENCH): Migraines not well. Still awaiting to get [...] 02/25 Assessment & Plan (05/29/2024 12:04 PM TOOL REPAIRER BENCH): Refilled Lexapro. Moods stable and will continue [...] 03/14/2024 Assessment & Plan (05/29/2024 12:04 PM TOOL REPAIRER BENCH): Refilled Synthroid. Euthyroid. Will continue to monitor. [...] 03/14/2024 Assessment & Plan (05/29/2024 12:05 PM TOOL REPAIRER BENCH): Sleep is improved with Zolpidem will continue [...] Team Description 11/29/2024 Telephone [facility] [address] [place] [id number] Luis Gardner NP 11/26/2024 Orders Only [facility] [address] [place] [id number] Luis Gardner NP Depression, major, single episode, [...] Tobacco: Never Tobacco Cessation:Counseling Given: Not Answered [facility] [employer] Answer Date Recorded In the past 12 months has [facility] [employer], oil, or water [employer] threatened to shut off services in your [...] week 08/08/2024 How often do you attend [facility] or mosque services? More than 4 times per year 08/08/2024 Do you belong to any clubs o r organizations such as rastafarian groups, unions, fraternal or athletic groups, or [...] staff should administer the PHQ-9) 1 09/20/2024 [facility] of Occupat ional Health - Occupational [...] Read Routine (OP Routine) 08/09/2024 8:12 AM TOOL REPAIRER BENCH Screening mammogram for breast cancer HEPATITIS C ANTIBODY Routine 03/14/2024 10:54 AM CDT Encounter for hepatitis C screening test for low risk patient from Last 3 Months or Most Recently Relevant to Health Maintenance Results * Screening Mammogram Bilateral W Homero (08/09/2024 8:12 AM TOOL REPAIRER BENCH) Anatomical Region Laterality Modality Breast Bilateral Mammography 08/24/2024 8:07 AM TOOL REPAIRER BENCH Impressions 08/24/2024 8:07 AM TOOL REPAIRER BENCH There is no mammographic evidence of malignancy. A 1 year screening mammogram is recommended. BI-RADS: 1 - Negative. The patient has been or will be contacted. The patient will be entered into a reminder system with a target due date of 1 year for her next mammogram. Electronically signed by: Laury Pal M.D. Narrative 08/24/2024 8:07 AM TOOL REPAIRER BENCH EXAMINATION: SCREENING MAMMOGRAM BILATERAL W HOMERO ORDERING [...] last revised on 2019. Testing performed by: [facility], [address] [place] [address]., [id number] Blood 03/14/2024 10:5 4 AM CDT 03/14/2024 7:41 PM CDT Luis Gardner NP LAB MICROBIOLOGY - GENERAL ORDER RAVINDRA Final Result [facility]) 1 [facility] Department [place] [address] from Last 3 Months or Most Recently Relevant to Health Maintenance Insurance [facility] [employer] Care Teams Food Service Tray Attendant Relationship Specialty Start Date End Date Luis Gardner NP [address] [place] [address] PCP - General Family Medicine 03/14/24 Marissa Farr MD [address] [address] 12/31/16
--- OUTSIDE RECORDS SUMMARY | 2025-02-16 10:29 | XMS_ITS | Encounter Summary ---
Author Organization [facility] Healthcare Address [address] [place] [address] Care Team Providers Care Mechanical Systems Design Engineer Name Role Phone Marissa Farr MD Unavailable [phone] Yesenia Gardner NP Primary Care Provider Reason for Visit * Auth/Cert (Routine) Specialty Diagnoses / Procedures Referred By Oscar schrader Referred To Contact Diagnoses History of colonic polyps Encounter for screening colonoscopy History of colonic polyps [Z86.0100] Encounter for screening colonoscopy [Z12.11] Procedures [place] COLONOSCOPY FLX DX W/COLLJ SPEC WHEN PFRMD COLONOSCOPY Referral ID Status Reason Start Date Expiration Date Visits Re quested Visits Authorized [id number] 1 1 Encounter Details Date Type Department Care Team (Late st Contact Info) Description 11/14/2024 Hospital Encounter [facility] [address] [place] [address] Spike Newberry, DO [address] [address] Social History Tobacco Use Types Packs/Day Years Used Date Smoking Tobacco: Never Smokeless Tobacco: Never [facility] Utilities Answer Date Recorded In [...] 08/08/2024 How often do you attend [facility] or yazdanism services? More than 4 times per year 08/08/2024 Do you belong to any clubs o r organizations such as samaritan groups, unions, fraternal or athletic groups, or [...] staff should administer the PHQ-9) 1 09/20/2024 [facility] of Occupat ional Health - Occupational [...] any time in the past 12 m [facility], were you homeless or [...] colonoscopy documented in this encounter Care Teams Mechanical Systems Design Engineer Relationship Specialty Start Date End Date Yesenia Gardner NP [address] [place] [address] PCP - General Family Medicine 03/14/24 Marissa Farr MD [address] [facility] [address] [place] [address] 12/31/16 documented as of this encounter
--- NOTE | 2025-02-16 10:30 | PC.NURSE ---
1023 Pt received 2nd dose of sublingual nitroglycerin due to no having no change in her CP following 1st dose. 1028 Pt reports she still is having no change in her chest pain after the second dose, pt blood pressure rechecked and reading 92/64. EDP made aware of pt bp decrease and of pt reports of continuation of CP states he will place new orders in pt chart
[2025-02-16] MEDS: MORPHINE SULFATE (*CRX) 4 MG/ML INJ 2 MG IV PUSH (10:37)
[2025-02-16 10:39] LABS: Troponin I < 0.012 ng/mL (0.000-0.034)
[2025-02-16] MEDS: SODIUM CHLORIDE 0.9% IV 1,000 ML 999 ML IV CONT (10:39)
--- NOTE | 2025-02-16 12:53 | ECG_ITS ---
Test Date: 2025-02-16 13:02:04 Measurements Intervals [place] Rate: 50 P: 36 NM: 168 QRS: -35 QRSD: 100 T: -42 QT: 479 QTc: 439 Interpretive Statements SINUS BRADYCARDIA LEFT AXIS DEVIATION LOW QRS VOLTAGE IN PRECORDIAL LEADS VOLTAGE CRITERIA FOR LVH POOR R WAVE PROGRESSION ST-T WAVE ABNORMALITY IN ANTEROLAT/INF LEADS- CONSIDER ISCHEMIA BASELINE ARTIFACT- I, II, III, AVR, AVL, AVF, V1-V6 ABNORMAL ECG Compared to ECG 02/16/2025 10:04:51 HEART RATE HAS DECREASED POSSIBLE ISCHEMIA NOW PRESENT Electronically Signed On 02-16-2025 17:08:47 CDT by Kobi Cope D.O.
--- NOTE | 2025-02-16 13:23 | ED.GENADULT ---
HPI - General Adult General Chief complaint: Chest Pain Stated complaint: BP 180/125, CP Time Seen by Provider: 02/16/25 10:08 History of Present Illness HPI narrative: Patient is 64-year-old female presents emergency department with chief complaint of chest pain. The patient reports that about an hour ago she started having pain in her chest patient reports she felt short of breath patient reports he has prior history of DVT in her left lower extremity and reports he has been noncompliant with her Xarelto for the last 3 weeks due to insurance issues. Related Data Home Medications ?Medication ?Instructions ?Recorded ?Confirmed ?Last Taken ?Type multivitamin 1 tablet PO DAILY 04/06/21 01/13/24 Unknown History omeprazole 40 mg capsule,delayed 40 mg PO DAILY 01/13/24 01/13/24 Unknown History release Allergies Allergy/AdvReac Type Severity Reaction Status Date / Time melons AdvReac Severe THROAT Uncoded 02/16/25 10:06 SWELLING Review of Systems Review of Systems: A 10 system review of systems was completed on the patient and is negative except for what is stated in the HPI. Nursing and ancillary documentation was reviewed. [facility] Past Medical History Medical History Respiratory illness with fever Cellulitis of thumb, right Normal echocardiogram Fatigue after COVID-19 vaccination Vaccine counseling Palpitations HTN (hypertension) Chronic deep vein thrombosis (DVT) of left lower extremity Left leg pain Close exposure to 2019 novel coronavirus DVT (deep venous thrombosis) Cough Acute deep vein thrombosis (DVT) of calf muscle vein of left lower extremity Weight loss Spondylosis, cervical, with myelopathy Dyspepsia due to dysmotility Muscle weakness (generalized) Adult hypothyroidism MDD (major depressive disorder), recurrent episode Balance disorder Abnormality of gait Narcolepsy Hypersomnia Surgical History Surgical History H/O endoscopy 08/22/19 H/O arthroscopy of shoulder R shoulder 06/2019 History of total knee arthroplasty R august 2019 H/O excision of lamina of cervical vertebra for decompression of spinal cord Family History Family History Father Hypertension Grandparent Family history of malignant melanoma Mother Family history of malignant melanoma, Onset Age: 65 Hypertension Other Cerebrovascular accident Family history of allergic disorder Family history of cardiovascular disease Family history of malignant neoplasm Social History Social History Social History: Smoking status: Never smoker Second hand tobacco smoke exposure: No Alcohol intake: never Substance use: never Substance use type: does not use Living arrangements: with family Occupation/Education: retired Gender identity (if verbalized by the patient): Female Sexual Orientation (if Verbalized by the Patient): Straight or Heterosexual Exam Narrative: GENERAL: Well-appearing, well-nourished, and in no acute distress. HEAD: Normocephalic, atraumatic. EYES: PERRLA and EOMI. ENT: Nares clear, no rhinorrhea or epistaxis. Mucous membranes moist. NECK: Supple. CHEST: Clear to auscultation. No respiratory distress. HEART: Regular rate and rhythm. No murmur heard. Normal peripheral pulses. ABDOMEN: Soft, nontender, nondistended, normal active bowel sounds. EXTREMITIES: Normal range of motion. No edema. SKIN: Warm, dry, no rash. NEURO: No focal deficits. Alert and oriented x3. PSYCH: Normal mood and affect. Course Vital Signs Vital signs: Vital Signs Temperature 36.7 C 02/16/25 10:00 Pulse Rate 79 02/16/25 10:00 Respiratory Rate 17 02/16/25 10:00 Blood Pressure 182/128 H 02/16/25 10:00 Pulse Oximetry 100 02/16/25 10:00 Oxygen Delivery Room Air 02/16/25 10:00 Temperature 36.7 C 02/16/25 10:00 Pulse Rate 53 L 02/16/25 12:54 Respiratory Rate 14 02/16/25 12:54 Blood Pressure 148/95 H 02/16/25 12:54 Pulse Oximetry 98 02/16/25 12:54 Oxygen Delivery Room Air 02/16/25 10:06 Medical Decision Making [facility] Narrative Medical decision making narrative: Differential diagnosis includes ACS, pulmonary embolism, electrolyte abnormality, noncardiac chest pain Patient was hypertensive upon initial arrival with blood pressure has come down Initial EKG showed no acute ischemic changes initial troponin was-3 hour repeat troponin was negative PE protocol was negative Vital Signs Vital Signs: Vital Signs Temperature 36.7 C 02/16/25 10:00 Pulse Rate 79 02/16/25 10:00 Respiratory Rate 17 02/16/25 10:00 Blood Pressure 182/128 H 02/16/25 10:00 Pulse Oximetry 100 02/16/25 10:00 Oxygen Delivery Room Air 02/16/25 10:00 Temperature 36.7 C 02/16/25 10:00 Pulse Rate 53 L 02/16/25 12:54 Respiratory Rate 14 02/16/25 12:54 Blood Pressure 148/95 H 02/16/25 12:54 Pulse Oximetry 98 02/16/25 12:54 Oxygen Delivery Room Air 02/16/25 10:06 Lab Data 02/16/25 10:07 02/16/25 10:07 Labs: Lab Results 02/16/25 02/16/25 Range/Units 10:07 12:57 WBC 5.8 (4.5-10.0) K/mm3 RBC 5.78 H (4.2-5.4) M/mm3 Hgb 15.2 H (12.0-15.0) g/dL Hct 48.2 H (37.0-47.0) % MCV 83.4 (80-100) fl MCH 26.3 (26-34) pg MCHC 31.5 L (32-36) g/dl RDW 14.9 H (11.5-14.5) % Plt Count 336 (150-375) k/mm3 MPV 10.0 (7.4-10.4) fl Immature Gran % (Auto) 0.3 (0-0.5) % Neut % (Auto) 61.9 (45.5-73.1) % Lymph % (Auto) 28.0 (18.3-44.2) % [place] % (Auto) 6.9 (2.6-8.5) % Eos % (Auto) 2.2 (0-4.4) % Baso % (Auto) 0.7 (0.2-1.2) % Lymph # (Auto) 1.63 (0.9-3.2) K/mm3 [place] # (Auto) 0.4 (0.1-0.6) K/mm3 Eos # (Auto) 0.1 (0-0.3) K/mm3 Baso # (Auto) 0.0 (0.0-0.1) K/mm3 Abs Immat Gran (auto) 0.02 (0.00-0.031) K/mm3 Absolute Neuts (auto) 3.6 (1.3-6.7) K/mm3 Absolute Nucleated RBC 0.000 (0.0-0.012) K/mm3 Nucleated RBC % 0.0 (0.0-0.2) % PT 13.9 (11.1-14.7) Seconds INR 1.1 APTT 28.8 (22.3-36.8) Seconds Sodium 139 (137-145) mmol/L Potassium 3.8 (3.4-5.0) mmol/L Chloride 108 H (98-107) mmol/L Carbon Dioxide 23 (22-30) mmol/L Anion Gap 8 (4-12) mmol/L BUN 12 D (7-17) mg/dL Creatinine 0.88 (0.7-1.0) mg/dL Estim Creat Clear Calc 66 ml/min Estimated GFR > 60 (59 - ) Glucose 93 (65-110) mg/dL Calcium 9.5 (8.4-10.2) mg/dL Total Bilirubin 1.3 (0.2-1.3) mg/dL AST 26 (14-36) U/L ALT 18 (6-35) U/L Alkaline Phosphatase 62 (38-126) U/L Troponin I < 0.012 < 0.012 (0.000-0.034) ng/mL Total Protein 7.7 (6.3-8.2) g/dL Albumin 4.3 (3.5-5.1) g/dL Lipase 228 (23-300) U/L Discharge Plan Discharge Clinical Impression: Chest pain Patient Disposition: Home Condition: Stable Instructions: Antibiotic Form, Chest Pain (ED) Additional Instructions: Please keep a daily log of your blood pressure. His recommended the take this to your primary care provider as you may need adjustment of your blood pressure medicines. Patient Language: Mohawk Prescriptions: No Action multivitamin Tablet 1 tablet PO DAILY gabapentin 800 mg tablet 800 mg PO QID Qty: 360 0RF lisinopril-hydrochlorothiazide 20-25 mg tablet See Rx Instructions .ROUTE .COMPLEX Qty: 90 0RF Dose Instruction: TAKE 1 TABLET BY MOUTH DAILY Rx Instructions: TAKE 1 TABLET BY MOUTH DAILY omeprazole 40 mg capsule,delayed release(DR/EC) 40 mg PO DAILY Patient Comments: obtaining OTC Xarelto 20 mg tablet See Rx Instructions .ROUTE .COMPLEX Qty: 90 1RF Dose Instruction: TAKE 1 TABLET BY MOUTH DAILY Rx Instructions: TAKE 1 TABLET BY MOUTH DAILY rizatriptan [Maxalt] 10 mg tablet 10 mg PO ONCE Qty: 10 3RF Rx Instructions: as a single dose levothyroxine 137 mcg tablet 137 mcg PO DAILY Qty: 90 0RF trazodone 50 mg tablet 50 mg PO QHS PRN (Reason: insomnia) Qty: 30 2RF rosuvastatin 20 mg tablet 20 mg PO DAILY Qty: 90 1RF Follow-up/Referrals: Jj,Yesenia Rice [Primary Care Provider, Unknown] Time of Disposition: 14:05
[2025-02-16 13:42] LABS: Troponin I < 0.012 ng/mL (0.000-0.034)
== END 2025-02-16 14:26 | disposition home or self-care (01) ==
PROVIDERS: Emergency Medicine; Emergency Provider Emergency Medicine; PCP Nurse Practitioner
DX: R07.9 Chest pain, unspecified (principal); I10 Essential (primary) hypertension; E03.9 Hypothyroidism, unspecified; F33.9 Major depressive disorder, recurrent, unspecified; Z96.651 Presence of right artificial knee joint; Z86.718 Personal history of other venous thrombosis and embolism; Z79.899 Other long term (current) drug therapy; Z79.01 Long term (current) use of anticoagulants; R94.31 Abnormal electrocardiogram [ECG] [EKG]; R00.1 Bradycardia, unspecified; I51.7 Cardiomegaly
CPT/HCPCS: 36415; 71275; 80053; 83690; 84484; 85025; 85610; 85730; 93005; 96361; 96374; 99284; A9270; J2270; J7030; Q9967